=== PATIENT | male | born 1945 | race Caucasian/White ===

== ENCOUNTER 2018-09-27 10:12 | Emergency (ER) | payer MEDICARE, OTHER ==
[2018-09-27] MEDS ORDERED: BACIGUENT PACKET TP ONE (10:33)
[2018-09-27] MEDS ORDERED: Sodium Chloride 0.9% 1000 ML 1,000 ML ONE (10:39)
[2018-09-27] MEDS ORDERED: BACIGUENT PACKET ONE (10:40)
--- NOTE | 2018-09-27 10:40 | ERPHSYRPT ---
- History of Present Illness Time Seen by Provider: 09/27/18 10:25 Source: patient Exam Limitations: no limitations Patient Subjective Stated Complaint: pt arrived per ambulance from drs office for dizzines after getting up from a chair.he fell to the ground on knees, ems had pt walk from cot to bed, and pt denies any dizziness now. Triage Nursing Assessment: pt alert, resp easy, skin w/d/p. chest clear, slight swelling to lower legs. pt has abrasion to left knee from fall. pt denies any other injury Physician History: 73-year-old white male with a history of syncopal episodes in the past. Patient arrives with complaint that he was at his doctor's office apparently stepped off the scale went to walk into a room felt weak dizzy and felt to his hands and knees. He did not have any problems speaking he states he did not have any loss of consciousness he has no chest pain no shortness of breath. He is not having any focal weaknesses and is moving all of his extremities. He does state that he had a syncopal episode in the distant past where he actually needed to be resuscitated past medical history includes COPD, syncope, high blood pressure, diabetes type 2, coronary artery disease, hypertension, gallbladder disease, prostate problems, depression Past surgical history includes left knee surgery, dental extraction, cataracts Social history patient is a former smoker he denies alcohol or illicit drug use. Timing/Duration: today Severity: moderate Modifying Factors: Improves With: nothing Associated Symptoms: weakness, other (generalized weakness with near syncopal episode), No nausea, No vomiting, No abdominal pain, No shortness of breath, No heartburn, No diaphoresis, No cough, No chills, No chest pain, No fever, No headaches, No loss of appetite, No malaise, No rash, No syncope, No seizure Allergies/Adverse Reactions: codeine Allergy (Verified 09/27/18 10:21) Sulfa (Sulfonamide Antibiotics) Allergy (Verified 09/27/18 10:21) Home Medications: Amlodipine Besylate 5 mg PO DAILY 09/08/15 [History] Aspirin [Aspir-Low] 81 mg PO DAILY 09/08/15 [History] Losartan Potassium 100 mg PO DAILY 09/08/15 [History] Metformin HCl 500 mg [Glucophage 500 MG] 500 mg PO HS 09/08/15 [History] Metoprolol Succinate 50 mg PO HS 09/08/15 [History] Multivitamin [Multi-Vitamin Daily] 1 each PO DAILY 09/08/15 [History] Nabumetone [Relafen] 500 mg PO BID 09/08/15 [History] Pyridoxine HCl [Vitamin B-6] 100 mg PO DAILY 09/08/15 [History] Ranitidine HCl 150 mg PO HS 09/08/15 [History] Senna 8.6 mg [Senokot 8.6 mg] 8.6 mg PO DAILY PRN PRN 09/08/15 [History] Tamsulosin HCl 0.4 mg [Flomax 0.4 MG] 0.4 mg PO HS 09/08/15 [History] Vitamin E 400 Units [Vitamin E 400 UNIT SOFTGEL] 400 unit PO DAILY [History] Omeprazole 40 mg PO DAILY 10/21/15 [History] Budesonide 0.5 mg/2 ml [Pulmicort 0.5 mg/2 ml Respules] 0.5 ml IH 04/15 [History] Rivaroxaban [Xarelto] 15 mg PO DAILY 04/15/16 [History] Hx Tetanus, Diphtheria Vaccination/Date Given: Yes (unknown) Hx Influenza Vaccination/Date Given: Yes Hx Pneumococcal Vaccination/Date Given: Yes Immunizations Up to Date: Yes - Review of Systems Constitutional: No Fever, No Chills Eyes: No Symptoms Ears, Nose, & Throat: No Symptoms Respiratory: No Cough, No Dyspnea Cardiac: Other (generalized weakness with near syncopal episode and fall at physician's office), No Chest Pain, No Edema, No Syncope Abdominal/Gastrointestinal: No Abdominal Pain, No Nausea, No Vomiting, No Diarrhea Genitourinary Symptoms: No Dysuria Musculoskeletal: Other (Slight pain left anterior knee), No Back Pain, No Neck Pain Skin: Other (abrasion left anterior k) Neurological: Dizziness, Other (generalized weakness with near syncopal episode) , No Focal Weakness, No Gait Changes, No Headache, No Irritability, No Lethargy , No Paralysis, No Parasthesia, No Seizure, No Sensory Changes, No Speech Changes, No Tics, No Tremors, No Vertigo Psychological: No Symptoms Endocrine: No Symptoms All Other Systems: Reviewed and Negative - Past Medical History Pertinent Past Medical History: Yes Neurological History: No Pertinent History ENT History: No Pertinent History Cardiac History: Coronary Artery Disease, Hypertension, Other Respiratory History: COPD Endocrine Medical History: Diabetes Type II Musculoskeletal History: No Pertinent History GI Medical History: Gallbladder Disease History: No Pertinent History Psycho-Social History: Depression Male Reproductive Disorders: Prostate Problems - Past Surgical History Past Surgical History: Yes Neuro Surgical History: No Pertinent History Cardiac: No Pertinent History Respiratory: No Pertinent History Gastrointestinal: Cholecystectomy Musculoskeletal: Orthopedic Surgery Male Surgical History: Other Other Surgical History: dental surgical extractions,left knee feb after fall on ice,tear of tendons repaired. - Social History Smoking Status: Former smoker Exposure to second hand smoke: Yes Alcohol Use: None Drug Use: none Patient Lives Alone: No Significant Family History: diabetes, hypertension - Nursing Vital Signs Nursing Vital Signs: Initial Vital Signs Temperature 97.0 F 09/27/18 10:14 Pulse Rate 77 09/27/18 10:14 Respiratory Rate 18 09/27/18 10:14 Blood Pressure 158/92 09/27/18 10:14 O2 Sat by Pulse Oximetry 96 09/27/18 10:14 Pain Scale Pain Intensity 0 - Physical Exam General Appearance: no apparent distress, alert Eye Exam: PERRL/EOMI, eyes nml inspection Ears, Nose, Throat Exam: normal ENT inspection, TMs normal, pharynx normal, moist mucous membranes Neck Exam: normal inspection, non-tender, supple, full range of motion Respiratory Exam: normal breath sounds, lungs clear, No respiratory distress Cardiovascular Exam: regular rate/rhythm, normal heart sounds, normal peripheral pulses, capillary refill <2 sec Gastrointestinal/Abdomen Exam: soft, normal bowel sounds, No tenderness, No mass Back Exam: normal inspection, normal range of motion, No CVA tenderness, No vertebral tenderness Extremity Exam: normal range of motion, pelvis stable, other (slight edema left anterior knee,abrasion left anterior knee), No amputations, No cevallos, No contusions, No calf tenderness, No deformities, No lacerations, No penetrations , No parasthesia, No paralysis, No fortino's sign, No inflammation, No joint swelling, No limited range of motion Neurologic Exam: alert, oriented x 3, cooperative, applique cutter II-XII nml as tested, normal mood/affect, nml cerebellar function, nml station & gait, sensation nml, other (patient alert, oriented 3, cranial nerves II through XII intact, speech normal, no facial droop, normal finger to nose, no pronator drift, patient transition specialist equal and symmetrical 5/5, full range of motion all extremities, sensation intact to all extremities GCS equals 15), No motor deficits, No sensory deficit, No disoriented, No confusion, No agitation, No uncooperative, No intoxicated appearance, No depressed mood/affect, No motor weakness, No facial droop, No slurred speech, No aphasia, No dysarthria, No abnormal gait, No abnormal cerebellar tests, No abnormal applique cutter II-XII, No EOM palsy Skin Exam: other (abrasion left anterior knee) Lymphatic Exam: adenopathy SpO2 Interpretation: normal (96%) SpO2: 96 - Course Nursing assessment & vital signs reviewed: Yes EKG Interpreted by Me: RATE (65 bpm), Sinus Rhythm, NORMAL AXIS, Other (EKG: Sinus rhythm with PVC, 73 bpm, normal axis, complete right bundle block., No acute ST or T wave changes noted. Compared to October 21, 2015) Ordered Tests: Active Orders 24 hr Category Date Time Status Operator Assistant I Cementing STAT Care 09/27/18 10:33 Active EKG-ER Only STAT Care 09/27/18 10:32 Active IV Insertion STAT Care 09/27/18 10:32 Active Orthostatic Vital Signs STAT Care 09/27/18 10:33 Active Pulse Oximetry (ED) STAT Care 09/27/18 10:32 Active Wound Care STAT Care 09/27/18 10:33 Active CBC W DIFF Stat Lab 09/27/18 11:00 Completed CMP Stat Lab 09/27/18 11:00 Completed D-DIMER QUANTITATION Stat Lab 09/27/18 11:00 Completed TROPONIN Q3H Lab 09/27/18 11:00 Completed TROPONIN Q3H Lab 09/27/18 13:50 Completed TROPONIN Q3H Lab 09/27/18 16:45 Ordered TROPONIN Q3H Lab 09/27/18 19:45 Ordered TROPONIN Q3H Lab 09/27/18 22:45 Ordered Medication Summary Generic Name Dose Route Start Last Admin Trade Name Freq PRN Reason Stop Dose Admin Sodium Chloride 1,000 mls @ 100 mls/hr 09/27/18 10:45 09/27/18 10:42 Sodium Chloride 0.9% 1000 Ml IV 10/27/18 10:44 100 mls/hr .Q10H DAHLIA Administration Discontinued Medications Generic Name Dose Route Start Last Admin Trade Name Amalia PRN Reason Stop Dose Admin Bacitracin Zinc 0.9 gm 09/27/18 10:33 09/27/18 10:42 Baciguent Packet TP 09/27/18 10:34 1 gm STAT ONE Administration Bacitracin Zinc Confirm 09/27/18 10:40 Baciguent Packet Administered 09/27/18 10:41 Dose 1 gm .ROUTE [place] ONE Lab/Rad Data: Laboratory Result Diagrams 09/27/18 11:00 09/27/18 11:00 Laboratory Results 09/27/18 09/27/18 09/27/18 Range/Units 13:50 11:00 11:00 WBC (4.0-10.5) K/mm3 RBC (4.1-5.6) M/mm3 Hgb (12.5-18.0) gm/dl Hct (42-50) % MCV (78-100) fl MCH (26-32) pg MCHC (32-36) g/dl RDW (11.5-14.0) % Plt Count (150-450) K/mm3 MPV (6-9.5) fl Gran % (36.0-66.0) % Eos # (Auto) (0-0.5) Absolute Lymphs (auto) (1.0-4.6) Absolute Monos (auto) (0.0-1.3) Lymphocytes % (24.0-44.0) % Monocytes % (0.0-12.0) % Eosinophils % (0.00-5.0) % Basophils % (0.0-0.4) % Absolute Granulocytes (1.4-6.9) Basophils # (0-0.4) D-Dimer 392 (215-500) ng/mL Sodium (137-145) mmol/L Potassium (3.5-5.1) mmol/L Chloride (98-107) mmol/L Carbon Dioxide (22-30) mmol/L Anion Gap (5-15) MEQ/L BUN (9-20) mg/dL Creatinine (0.66-1.25) mg/dL Estimated GFR ML/MIN Glucose (74-106) mg/dL Calcium (8.4-10.2) mg/dL Total Bilirubin (0.2-1.3) mg/dL AST (17-59) U/L ALT (0-50) U/L Alkaline Phosphatase (38-126) U/L Troponin I < 0.012 < 0.012 (0.000-0.034) ng/mL Serum Total Protein (6.3-8.2) g/dL Albumin (3.5-5.0) g/dL 09/27/18 09/27/18 Range/Units 11:00 11:00 WBC 7.3 (4.0-10.5) K/mm3 RBC 4.39 (4.1-5.6) M/mm3 Hgb 10.8 L (12.5-18.0) gm/dl Hct 36.5 L (42-50) % MCV 83.1 (78-100) fl MCH 24.6 L (26-32) pg MCHC 29.6 L (32-36) g/dl RDW 16.2 H (11.5-14.0) % Plt Count 302 (150-450) K/mm3 MPV 11.6 H (6-9.5) fl Gran % 61.0 (36.0-66.0) % Eos # (Auto) 0.33 (0-0.5) Absolute Lymphs (auto) 1.64 (1.0-4.6) Absolute Monos (auto) 0.86 (0.0-1.3) Lymphocytes % 22.3 L (24.0-44.0) % Monocytes % 11.7 (0.0-12.0) % Eosinophils % 4.5 (0.00-5.0) % Basophils % 0.5 (0.0-0.4) % Absolute Granulocytes 4.47 (1.4-6.9) Basophils # 0.04 (0-0.4) D-Dimer (215-500) ng/mL Sodium 143 (137-145) mmol/L Potassium 3.9 (3.5-5.1) mmol/L Chloride 105 (98-107) mmol/L Carbon Dioxide 26 (22-30) mmol/L Anion Gap 15.3 H (5-15) MEQ/L BUN 12 (9-20) mg/dL Creatinine 1.16 (0.66-1.25) mg/dL Estimated GFR > 60.0 ML/MIN Glucose 179 H (74-106) mg/dL Calcium 9.3 (8.4-10.2) mg/dL Total Bilirubin 0.90 (0.2-1.3) mg/dL AST 27 (17-59) U/L ALT 23 (0-50) U/L Alkaline Phosphatase 96 (38-126) U/L Troponin I (0.000-0.034) ng/mL Serum Total Protein 7.3 (6.3-8.2) g/dL Albumin 4.3 (3.5-5.0) g/dL - Progress Progress: improved Progress Note: 09/27/18 12:39 73-year-old white male arrives with complaint of a near syncopal episode at his physician's office today. Patient apparently had stepped off the scale of walked into the other room and then felt "numb all over". States he fell to his knees did not pass out did not hit his head no chest pain no shortness of breath. Patient to with the abrasion to the left anterior knee. Patient in no acute distress vitals are stable. CBC CMP troponin and d-dimer are all normal EKG remarkable for sinus rhythm with PVC right bundle branch block no acute ST or T wave changes are noted Orthostatic vital signs are stable. I've discussed the patient's case with Dr. Hammonds. He would like to repeat troponins 3 hours after last draw.. Consider discharge if within normal limits however patient is to follow-up with Dr. Hammonds tomorrow in the [place] office at 10:30 AM. 09/27/18 15:03 Patient's repeat troponin within normal limits. Patient's vitals have been stable. Patient in no distress. Will discharge. - Departure Time of Disposition: 15:04 Departure Disposition: Home Clinical Impression: near syncopal episode, Abrasion, left knee, initial encounter Condition: Fair Critical Care Time: No Referrals: GONSALO HAMMONDS MD [Primary Care Provider] - Additional Instructions: Return home rest. No driving, no heights no hazardous activity. Take showers instead of baths. Do not engage in any activity that might harming yourself or others. Follow-up with Dr. Hammonds tomorrow morning at 10:30 AM.([place] office) Return for acute distress severe symptoms or for any problems.
[2018-09-27] MEDS ORDERED: Sodium Chloride 0.9% 1000 ML 1,000 ML IV SCH (10:45)
[2018-09-27 11:08] LABS: BASOPHIL % 0.5 % (0.0-0.4); Basophil (Absolute #) 0.04 (0-0.4); Eosinophil % 4.5 % (0.00-5.0); Eosinophil (Absolute #) 0.33 (0-0.5); Granulocyte Absolute (ANC) 4.47 (1.4-6.9); Hematocrit 36.5 % (42-50); Hemoglobin 10.8 gm/dl (12.5-18.0); Lymphocyte (Absolute #) 1.64 (1.0-4.6); Lymphocytes % 22.3 % (24.0-44.0); Mean Cell Volume 83.1 fl (78-100); Mean Corpuscular Hemoglobin 24.6 pg (26-32); Mean Corpuscular Hgb Concent. 29.6 g/dl (32-36); Mean Platelet Volume 11.6 fl (6-9.5); Monocyte (Absolute #) 0.86 (0.0-1.3); Monocytes % 11.7 % (0.0-12.0); Platelet Count 302 K/mm3 (150-450); Red Blood Count 4.39 M/mm3 (4.1-5.6); Red Cell Distribution Width 16.2 % (11.5-14.0); White Blood Count 7.3 K/mm3 (4.0-10.5)
[2018-09-27 11:24] LABS: ALBUMIN 4.3 g/dL (3.5-5.0); ALKALINE PHOSPHATASE 96 U/L (38-126); ANION GAP 15.3 MEQ/L (5-15); BLOOD UREA NITROGEN 12 mg/dL (9-20); CHLORIDE 105 mmol/L (98-107); Calcium 9.3 mg/dL (8.4-10.2); Carbon Dioxide 26 mmol/L (22-30); Creatinine 1 1.16 mg/dL (0.66-1.25); Glucose 179 mg/dL (74-106); Potassium 3.9 mmol/L (3.5-5.1); SGOT/AST 27 U/L (17-59); SGPT/ALT 23 U/L (0-50); SODIUM 143 mmol/L (137-145); Total Protein 7.3 g/dL (6.3-8.2)
[2018-09-27 15:19] VITALS: BP 132/67; PULSE 67; O2SAT 98
== END 2018-09-27 15:30 | disposition home or self-care (01) ==
LOC: ED 10:12
DX: R55 Syncope and collapse (principal); S80.212A Abrasion, left knee, initial encounter; W01.0XXA Fall on same level from slipping, tripping and stumbling without subsequent striking against object, initial encounter; M79.89 Other specified soft tissue disorders; J44.9 Chronic obstructive pulmonary disease, unspecified; I10 Essential (primary) hypertension; I25.10 Atherosclerotic heart disease of native coronary artery without angina pectoris; E11.9 Type 2 diabetes mellitus without complications; F32.9 Major depressive disorder, single episode, unspecified; Z79.01 Long term (current) use of anticoagulants; Z79.899 Other long term (current) drug therapy
CPT/HCPCS: 36415; 80053; 84484; 85025; 85379; 93005; 93041; 96360; 96361; 99284; A9270-GY

== ENCOUNTER 2020-02-05 10:06 | Emergency (ER) | payer MEDICARE, OTHER ==
[2020-02-05] MEDS ORDERED: XYLOCAINE 1% HCL 20 ML MDV IJ ONE (10:29)
[2020-02-05] MEDS ORDERED: Adacel Vial IM ONE ×2 (10:29→10:45)
[2020-02-05] MEDS ORDERED: XYLOCAINE 1% HCL 20 ML MDV ONE (10:32)
--- NOTE | 2020-02-05 10:53 | ERPHSYRPT ---
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 pt states he is on blood thinners. Triage Nursing Assessment: pt with laceration to L 2nd digit. bleeding controlled. pt on blood thinners. pt A&Ox4. Physician History: Is a 74-year-old male who was trying to on block a obstruction from in a icemaker with a software technician knife when it slipped and cut his right index finger. He is on Eliquis. The laceration is at the distal phalanx radial aspect 2 cm in length. No other injury this occurred just prior to arrival by private vehicle. Timing/Duration: today Quality: painful Severity: moderate Location: hands (Next finger) Associated Symptoms: denies symptoms Allergies/Adverse Reactions: codeine Allergy (Verified 02/05/20 10:34) Sulfa (Sulfonamide Antibiotics) Allergy (Verified 02/05/20 10:34) Home Medications: Amlodipine Besylate 5 mg PO DAILY 09/08/15 [History] Aspirin [Aspir-Low] 81 mg PO DAILY 09/08/15 [History] Losartan Potassium 100 mg PO DAILY 09/08/15 [History] Metformin HCl 500 mg [Glucophage 500 MG] 500 mg PO HS 09/08/15 [History] Metoprolol Succinate 50 mg PO HS 09/08/15 [History] Multivitamin [Multi-Vitamin Daily] 1 each PO DAILY 09/08/15 [History] Nabumetone [Relafen] 500 mg PO BID 09/08/15 [History] Pyridoxine HCl [Vitamin B-6] 100 mg PO DAILY 09/08/15 [History] Ranitidine HCl 150 mg PO HS 09/08/15 [History] Senna 8.6 mg [Senokot 8.6 mg] 8.6 mg PO DAILY PRN PRN 09/08/15 [History] Tamsulosin HCl 0.4 mg [Flomax 0.4 MG] 0.4 mg PO HS 09/08/15 [History] Vitamin E 400 Units [Vitamin E 400 UNIT SOFTGEL] 400 unit PO DAILY [History] Omeprazole 40 mg PO DAILY 10/21/15 [History] Budesonide 0.5 mg/2 ml [Pulmicort 0.5 mg/2 ml Respules] 0.5 ml IH UD 04/15 [History] Rivaroxaban [Xarelto] 15 mg PO DAILY 04/15/16 [History] Hx Tetanus, Diphtheria Vaccination/Date Given: No Hx Influenza Vaccination/Date Given: Yes Hx Pneumococcal Vaccination/Date Given: Yes Immunizations Up to Date: Yes Travel Risk - International Travel Have you traveled outside of the country in past 3 weeks: No (N) If Yes, where;: N - Coronavirus Screening Close contact with a COVID-19 positive Pt in past 14-21 Days: No - Review of Systems Constitutional: No Fever, No Chills Eyes: No Symptoms Ears, Nose, & Throat: No Symptoms Respiratory: No Cough, No Dyspnea Cardiac: No Chest Pain, No Edema, No Syncope Abdominal/Gastrointestinal: No Abdominal Pain, No Nausea, No Vomiting, No Diarrhea Genitourinary Symptoms: No Dysuria Musculoskeletal: No Back Pain, No Neck Pain Skin: No Rash Neurological: No Dizziness, No Focal Weakness, No Sensory Changes Psychological: No Symptoms Endocrine: No Symptoms All Other Systems: Reviewed and Negative - Past Medical History Pertinent Past Medical History: Yes Neurological History: No Pertinent History ENT History: No Pertinent History Cardiac History: Coronary Artery Disease, Hypertension, Other Respiratory History: COPD Endocrine Medical History: Diabetes Type II Musculoskeletal History: No Pertinent History GI Medical History: Gallbladder Disease History: No Pertinent History Psycho-Social History: Depression Male Reproductive Disorders: Prostate Problems - Past Surgical History Past Surgical History: Yes Neuro Surgical History: No Pertinent History Cardiac: No Pertinent History Respiratory: No Pertinent History Gastrointestinal: Cholecystectomy Musculoskeletal: Orthopedic Surgery Male Surgical History: Other Other Surgical History: dental surgical extractions,left knee feb after fall on ice,tear of tendons repaired. - Social History Smoking Status: Former smoker Exposure to second hand smoke: No Alcohol Use: None Drug Use: none Patient Lives Alone: No Significant Family History: diabetes, hypertension - Nursing Vital Signs Nursing Vital Signs: Initial Vital Signs Temperature 97.4 F 02/05/20 10:26 Pulse Rate 68 02/05/20 10:26 Respiratory Rate 16 02/05/20 10:26 Blood Pressure 150/81 02/05/20 10:26 O2 Sat by Pulse Oximetry 98 02/05/20 10:26 Pain Scale Pain Intensity 2 - Physical Exam General Appearance: no apparent distress, alert Eye Exam: PERRL/EOMI, eyes nml inspection Ears, Nose, Throat Exam: normal ENT inspection, pharynx normal, moist mucous membranes Neck Exam: normal inspection, non-tender, supple, full range of motion Extremity Exam: lacerations, limited range of motion, other (Extremity examination shows normal inspection normal range of motion normal neurovascular tendon function the only abnormality is a 2 cm laceration distal phalanx left index finger radial aspect.) SpO2: 98 Ordered Tests: Medication Summary Discontinued Medications Generic Name Dose Route Start Last Admin Trade Name Freq PRN Reason Stop Dose Admin Diphtheria/Tetanus/Acell Pertussis 0.5 ml 02/05/20 10:29 Adacel Vial IM 02/05/20 10:30 .ONCE ONE Diphtheria/Tetanus/Acell Pertussis Confirm 02/05/20 10:45 Adacel Vial Administered 02/05/20 10:46 Dose 0.5 ml IM .ST[facility]-MED ONE Lidocaine HCl 5 ml 02/05/20 10:29 Xylocaine 1% Hcl 20 Ml Mdv IJ 02/05/20 10:30 STAT ONE Lidocaine HCl Confirm 02/05/20 10:32 Xylocaine 1% Hcl 20 Ml Mdv Administered 02/05/20 10:33 Dose 5 ml .ROUTE .STK-MED ONE - Progress Progress: improved - Departure Departure Disposition: Home Clinical Impression: Laceration Condition: Stable Critical Care Time: No Referrals: GONSALO HAMMONDS MD [Primary Care Provider] - Instructions: Laceration Repair With Stitches (DC)
[2020-02-05 11:00] VITALS: BP 218/74; PULSE 60; O2SAT 97
== END 2020-02-05 11:25 | disposition home or self-care (01) ==
LOC: ED 10:06
DX: S61.211A Laceration without foreign body of left index finger without damage to nail, initial encounter (principal); W26.0XXA Contact with knife, initial encounter; Y93.89 Activity, other specified; Y92.89 Other specified places as the place of occurrence of the external cause; Z79.01 Long term (current) use of anticoagulants; Z79.82 Long term (current) use of aspirin; Z79.899 Other long term (current) drug therapy; I10 Essential (primary) hypertension; I25.10 Atherosclerotic heart disease of native coronary artery without angina pectoris; J44.9 Chronic obstructive pulmonary disease, unspecified; E11.9 Type 2 diabetes mellitus without complications
CPT/HCPCS: 12001; 90471; 90715; 96372; 99284

== ENCOUNTER 2020-04-14 11:02 | Emergency (ER) | payer MEDICARE, OTHER ==
--- NOTE | 2020-04-14 11:22 | ERPHSYRPT ---
- History of Present Illness Time Seen by Provider: 04/14/20 11:21 Historian: patient Exam Limitations: no limitations Physician History: The patient is a 74-year-old male with a past medical history significant for CAD, atrial fibrillation who currently takes apixaban for anticoagulation presents with a chief complaint of a headache and persistent nausea in addition to a left shoulder injury that started last Wednesday after he had a syncopal episode. The patient reportedly was working outside and moving a swing set when he suddenly felt dizzy and felt as if he was going to pass out before losing consciousness and impacting the ground. Patient states that he lost control of his bowels during the syncopal episode but as soon as he hit the ground he immediately awoke and got up and continue to work. He denies chest pain, shortness of breath but reportedly over the ongoing week he is continued to feel nauseous in addition to having a dull headache that is diffuse nonradiating and constant. He endorsed obtaining some bruising and a superficial abrasion to the left ear and a abrasion to the left shoulder as a result of falling. He denies vomiting, fever, chills, chest pain, palpitations, shortness of breath, neck pain and has been able to walk without difficulty since that time. The reason he comes to the emergency department today was due to his daughter concerned of his ongoing headache and nausea with a recently reported head injury in the context of taking apixaban and was concerned that he might have some "bleeding" in his brain. Has not taken anything for his symptoms prior to arrival. He was offered Tylenol for his headache in addition to antiemetics but declined. Allergies/Adverse Reactions: Sulfa (Sulfonamide Antibiotics) Allergy (Severe, Verified 04/14/20 11:30) hallucinations codeine Allergy (Intermediate, Verified 04/14/20 11:30) Nausea and Vomiting Home Medications: Aspirin [Aspir-Low] 81 mg PO DAILY 09/08/15 [History] Losartan Potassium 100 mg PO DAILY 09/08/15 [History] Metformin HCl 500 mg [Glucophage 500 MG] 500 mg PO HS 09/08/15 [History] Metoprolol Succinate 50 mg PO HS 09/08/15 [History] Multivitamin [Multi-Vitamin Daily] 1 each PO DAILY 09/08/15 [History] Nabumetone [Relafen] 500 mg PO BID 09/08/15 [History] Pyridoxine HCl [Vitamin B-6] 100 mg PO DAILY 09/08/15 [History] Senna 8.6 mg [Senokot 8.6 mg] 8.6 mg PO DAILY PRN PRN 09/08/15 [History] Tamsulosin HCl 0.4 mg [Flomax 0.4 MG] 0.4 mg PO HS 09/08/15 [History] Vitamin E 400 Units [Vitamin E 400 UNIT SOFTGEL] 400 unit PO DAILY 09/08/15 [History] Omeprazole 40 mg PO DAILY 10/21/15 [History] Budesonide 0.5 mg/2 ml [Pulmicort 0.5 mg/2 ml Respules] 0.5 ml IH UD 04/15/16 [History] Apixaban [Eliquis] 5 mg PO BID 02/16/20 [History] Famotidine 20 mg [Pepcid 20 MG] 20 mg PO DAILY 02/23/20 [History] Hx Tetanus, Diphtheria Vaccination/Date Given: No Hx Influenza Vaccination/Date Given: Yes Hx Pneumococcal Vaccination/Date Given: Yes - Review of Systems Constitutional: No Symptoms Eyes: No Symptoms Ears, Nose, & Throat: Other (Abrasion and contusion to left ear) Respiratory: No Symptoms Cardiac: Syncope Abdominal/Gastrointestinal: Nausea, No Abdominal Pain, No Vomiting, No Diarrhea, No Constipation Genitourinary Symptoms: No Symptoms Musculoskeletal: Fall, Other (Left shoulder pain) Neurological: Headache, No Focal Weakness, No Gait Changes, No Seizure, No Sensory Changes, No Speech Changes, No Vertigo Psychological: No Symptoms Endocrine: No Symptoms Hematologic/Lymphatic: Anemia All Other Systems: Reviewed and Negative - Past Medical History Pertinent Past Medical History: Yes Neurological History: No Pertinent History ENT History: No Pertinent History Cardiac History: Arrhythmia, Coronary Artery Disease, Hypertension, Other Respiratory History: COPD Endocrine Medical History: Diabetes Type II Musculoskeletal History: No Pertinent History GI Medical History: Gallbladder Disease History: No Pertinent History Psycho-Social History: Depression Male Reproductive Disorders: Prostate Problems Other Medical History: a fib, pacer/defib - Past Surgical History Past Surgical History: Yes Neuro Surgical History: No Pertinent History Cardiac: No Pertinent History Respiratory: No Pertinent History Gastrointestinal: Cholecystectomy Genitourinary: No Pertinent History Musculoskeletal: Orthopedic Surgery Male Surgical History: Other Other Surgical History: dental surgical extractions,left knee feb after fall on ice,tear of tendons repaired. - Social History Smoking Status: Former smoker How long have you smoked: 42 years Exposure to second hand smoke: No Alcohol Use: None Drug Use: none Patient Lives Alone: No Significant Family History: diabetes, hypertension - Nursing Vital Signs Nursing Vital Signs: Initial Vital Signs Temperature 98.1 F 04/14/20 11:19 Pulse Rate 69 04/14/20 11:19 Respiratory Rate 18 04/14/20 11:19 O2 Sat by Pulse Oximetry 98 04/14/20 11:19 Pain Scale Pain Intensity 0 - Physical Exam General Appearance: no apparent distress, alert, obese Eye Exam: PERRL/EOMI, eyes nml inspection, No scleral icterus, No pale conjunctivae, No photophobia, No EOM palsy/anisocoria Ears, Nose, Throat Exam: normal ENT inspection, TMs normal, pharynx normal, moist mucous membranes, pharyngeal erythema, other (Superficial abrasion and contusion noted to the left external ear that appeared to be healing with no evidence of cauliflower ear) Neck Exam: normal inspection, non-tender, supple, other (No midline cervical spine tenderness, crepitus, or step-off) Respiratory Exam: normal breath sounds, lungs clear, airway intact, No chest tenderness, No respiratory distress, No accessory muscle use Cardiovascular Exam: regular rate/rhythm, normal peripheral pulses, capillary refill <2 sec, other (Pacemaker noted to the anterior left chest wall), No murmur, No friction rub, No gallop Gastrointestinal/Abdomen Exam: soft, No tenderness, No mass, No guarding Rectal Exam: deferred Back Exam: normal inspection, No CVA tenderness, No vertebral tenderness, No point tenderness Extremity Exam: tenderness, other (Contusion and tenderness noted to the left shoulder), No deformities Neurologic Exam: alert, oriented x 3, cooperative, other (GCS 15) Skin Exam: warm, dry, other (Contusion/ecchymosis noted to the left shouled), No petechiae, No jaundice - Course Nursing assessment & vital signs reviewed: Yes EKG Interpreted by Me: RATE, Other (Ventricular-paced complexes, Vent rate 64 bpm, MA interval 209 ms, QRS duration 152 ms, QT/QTc 505/521 ms) - Radiology Exams Shoulder X-ray Interpretation: Interpreted by me, Reviewed by me, Negative - CT Exams Head CT Interpretation: Negative, Tele-radiologist Report, Other (No acute intracranial process) Ordered Tests: Active Orders 24 hr Category Date Time Status EKG-ER Only STAT Care 04/14/20 11:21 Completed IV Insertion STAT Care 04/14/20 11:21 Completed HEAD WITHOUT CONTRAST [CT] Stat Exams 04/14/20 12:28 Completed SHOULDER Stat Exams 04/14/20 12:44 Completed BMP Stat Lab 04/14/20 12:00 Completed CBC W DIFF Stat Lab 04/14/20 12:00 Completed Hepatic Function Panel Stat Lab 04/14/20 12:00 Completed LIPASE Stat Lab 04/14/20 12:00 Completed TROPONIN Q3H Lab 04/14/20 12:00 Completed UA W/RFX UR CULTURE Stat Lab 04/14/20 13:36 Completed Lab/Rad Data: Laboratory Result Diagrams 04/14/20 12:00 04/14/20 12:00 Laboratory Results 04/14/20 04/14/20 04/14/20 Range/Units 13:36 12:00 12:00 WBC (4.0-10.5) K/mm3 RBC (4.1-5.6) M/mm3 Hgb (12.5-18.0) gm/dl Hct (42-50) % MCV (78-100) fl MCH (26-32) pg MCHC (32-36) g/dl RDW (11.5-14.0) % Plt Count (150-450) K/mm3 MPV (7.5-11.0) fl Gran % (36.0-66.0) % Eos # (Auto) (0-0.5) Absolute Lymphs (auto) (1.0-4.6) Absolute Monos (auto) (0.0-1.3) Lymphocytes % (24.0-44.0) % Monocytes % (0.0-12.0) % Eosinophils % (0.00-5.0) % Basophils % (0.0-0.4) % Absolute Granulocytes (1.4-6.9) Basophils # (0-0.4) Sodium 140 (137-145) mmol/L Potassium 4.0 (3.5-5.1) mmol/L Chloride 104 (98-107) mmol/L Carbon Dioxide 26 (22-30) mmol/L Anion Gap 13.9 (5-15) MEQ/L BUN 15 (9-20) mg/dL Creatinine 1.30 H (0.66-1.25) mg/dL Estimated GFR 57.4 ML/MIN Glucose 185 H (74-106) mg/dL Calcium 9.1 (8.4-10.2) mg/dL Total Bilirubin 1.50 H (0.2-1.3) mg/dL Direct Bilirubin 0.1 (0.0-0.4) mg/dL AST 27 (17-59) U/L ALT 20 (0-50) U/L Alkaline Phosphatase 61 (38-126) U/L Troponin I < 0.012 (0.000-0.034) ng/mL Serum Total Protein 7.0 (6.3-8.2) g/dL Albumin 4.4 (3.5-5.0) g/dL Lipase 144 (23-300) U/L Urine Color SABINA (YELLOW) Urine Appearance SLIGHTLY CLOUDY (CLEAR) Urine pH 6.0 (5-6) Ur Specific [place] 1.013 (1.005-1.025) Urine Protein NEGATIVE (Negative) Urine Ketones NEGATIVE (NEGATIVE) Urine Blood NEGATIVE (0-5) Eric/ul Urine Nitrite NEGATIVE (NEGATIVE) Urine Bilirubin NEGATIVE (NEGATIVE) Urine Urobilinogen NEGATIVE (0-1) mg/dL Ur Leukocyte Esterase NEGATIVE (NEGATIVE) Urine WBC (Auto) NONE (0-5) /HPF Urine RBC (Auto) NONE (0-2) /HPF U Epithel Cells (Auto) NONE (FEW) /HPF Urine Bacteria (Auto) NONE (NEGATIVE) /HPF Urine Mucus (Auto) SLIGHT (NEGATIVE) /HPF Urine Culture Reflexed NO (NO) Urine Glucose >=500 (NEGATIVE) mg/dL 04/14/20 Range/Units 12:00 WBC 7.0 (4.0-10.5) K/mm3 RBC 4.25 (4.1-5.6) M/mm3 Hgb 12.1 L (12.5-18.0) gm/dl Hct 40.1 L (42-50) % MCV 94.4 (78-100) fl MCH 28.5 (26-32) pg MCHC 30.2 L (32-36) g/dl RDW 15.7 H (11.5-14.0) % Plt Count 235 (150-450) K/mm3 MPV 11.9 H (7.5-11.0) fl Gran % 70.6 H (36.0-66.0) % Eos # (Auto) 0.20 (0-0.5) Absolute Lymphs (auto) 1.10 (1.0-4.6) Absolute Monos (auto) 0.73 (0.0-1.3) Lymphocytes % 15.7 L (24.0-44.0) % Monocytes % 10.4 (0.0-12.0) % Eosinophils % 2.9 (0.00-5.0) % Basophils % 0.4 (0.0-0.4) % Absolute Granulocytes 4.93 (1.4-6.9) Basophils # 0.03 (0-0.4) Sodium (137-145) mmol/L Potassium (3.5-5.1) mmol/L Chloride (98-107) mmol/L Carbon Dioxide (22-30) mmol/L Anion Gap (5-15) MEQ/L BUN (9-20) mg/dL Creatinine (0.66-1.25) mg/dL Estimated GFR ML/MIN Glucose (74-106) mg/dL Calcium (8.4-10.2) mg/dL Total Bilirubin (0.2-1.3) mg/dL Direct Bilirubin (0.0-0.4) mg/dL AST (17-59) U/L ALT (0-50) U/L Alkaline Phosphatase (38-126) U/L Troponin I (0.000-0.034) ng/mL Serum Total Protein (6.3-8.2) g/dL Albumin (3.5-5.0) g/dL Lipase (23-300) U/L Urine Color (YELLOW) Urine Appearance (CLEAR) Urine pH (5-6) Ur Specific [place] (1.005-1.025) Urine Protein (Negative) Urine Ketones (NEGATIVE) Urine Blood (0-5) Eric/ul Urine Nitrite (NEGATIVE) Urine Bilirubin (NEGATIVE) Urine Urobilinogen (0-1) mg/dL Ur Leukocyte Esterase (NEGATIVE) Urine WBC (Auto) (0-5) /HPF Urine RBC (Auto) (0-2) /HPF U Epithel Cells (Auto) (FEW) /HPF Urine Bacteria (Auto) (NEGATIVE) /HPF Urine Mucus (Auto) (NEGATIVE) /HPF Urine Culture Reflexed (NO) Urine Glucose (NEGATIVE) mg/dL - Progress Progress: unchanged Progress Note: 04/14/20 13:29 Troponin was reportedly negative according to the lab. 04/14/20 16:10 The patient presents with a chief complaint of a syncopal episode that occurred on Wednesday that sounds vasovagal in etiology given that he reportedly had a prodrome before briefly losing consciousness and impacting his head. Given that he had a head injury in the context of taking Eliquis he was deemed high probability of a potential subdural hematoma and therefore a CT scan of his head was obtained and showed no evidence of acute cranial pathology. Remaining laboratory work-up was relatively benign and his kidney function noted today is his baseline kidney function. Possible the patient may have a mild concussion given his reported head injury after his syncopal episode but appears well with no cranial deficits or neuro deficits at this time and was able to ambulate without difficulty. He was offered Tylenol in addition antiemetics in the emergency department and declined such. His cardiac markers were within normal limits and I currently have a low suspicion for PE at this time given that the patient is taking a DOAC. Mainly, the patient was discharged home with instructions to take Tylenol as needed for any ongoing pain and was offered antiemetics to take as an outpatient but declined. He was instructed to follow- up with his primary care provider for further evaluation and management. He agreed with and verbally understood the discharge plan. Counseled pt/family regarding: lab results, diagnosis, need for follow-up, rad results - Departure Departure Disposition: Home Clinical Impression: Head injury, Shoulder contusion, Syncope, Abrasion of left ear, Contusion of left ear Condition: Stable Critical Care Time: No Referrals: GONSALO HAMMONDS MD [Primary Care Provider] - Additional Instructions: Please take Tylenol as needed for any headaches aches or pains. You can purchase this medication [id number]. Please take this medication as instructed.
[2020-04-14 11:30] VITALS: O2SAT 98
[2020-04-14 12:16] LABS: Absolute Neutrophil Ct (ANC) 4.93 (1.4-6.9); BASOPHIL % 0.4 % (0.0-0.4); Basophil (Absolute #) 0.03 (0-0.4); Eosinophil % 2.9 % (0.00-5.0); Hematocrit 40.1 % (42-50); Hemoglobin 12.1 gm/dl (12.5-18.0); Lymphocytes % 15.7 % (24.0-44.0); Mean Cell Volume 94.4 fl (78-100); Mean Corpuscular Hemoglobin 28.5 pg (26-32); Mean Corpuscular Hgb Concent. 30.2 g/dl (32-36); Mean Platelet Volume 11.9 fl (7.5-11.0); Monocyte (Absolute #) 0.73 (0.0-1.3); Monocytes % 10.4 % (0.0-12.0); Neutrophil % 70.6 % (36.0-66.0); Platelet Count 235 K/mm3 (150-450); Red Blood Count 4.25 M/mm3 (4.1-5.6); Red Cell Distribution Width 15.7 % (11.5-14.0)
[2020-04-14 13:00] LABS: ALBUMIN 4.4 g/dL (3.5-5.0); ANION GAP 13.9 MEQ/L (5-15); BILIRUBIN,TOTAL 1.5 mg/dL (0.2-1.3); Calcium 9.1 mg/dL (8.4-10.2); Creatinine 1 1.3 mg/dL (0.66-1.25); Direct Bilirubin 0.1 mg/dL (0.0-0.4)
[2020-04-14 13:40] LABS: Appearance SLIGHTLY CLOUDY (CLEAR); Bilirubin NEGATIVE (NEGATIVE); Blood NEGATIVE Ery/ul (0-5); Glucose >=500 mg/dL (NEGATIVE); Ketones NEGATIVE (NEGATIVE); Leukocyte Esterase NEGATIVE (NEGATIVE); Mucus SLIGHT /HPF (NEGATIVE); Nitrite NEGATIVE (NEGATIVE); Protein,Urine Dip NEGATIVE (Negative); Specific Gravity 1.013 (1.005-1.025); Urobilinogen NEGATIVE mg/dL (0-1)
[2020-04-14 13:48] VITALS: BP 130/76; PULSE 72
--- NOTE | 2020-04-14 19:31 | XRAY ---
Indication: Headache following fall. Current blood thinner therapy. Multiple contiguous axial images obtained through the head without contrast. Comparison: None Age-appropriate global atrophy and minimal periventricular degenerative micro-ischemia bilaterally. No acute intracranial hemorrhage, abnormal extra-axial fluid collection, or mass effect. Fourth ventricle is midline. Bony calvarium intact. Remaining visualized paranasal sinuses and mastoid air cells are clear. Impression: Nonacute senile brain. Minimal paranasal sinus disease. Comment: Preliminary interpretation was made by [facility]. No critical discrepancy.
--- NOTE | 2020-04-14 19:33 | XRAY ---
Pain following fall. Comparison: None 3 view left shoulder demonstrates mild osteopenia and moderate degenerative arthropathy of the AC and glenohumeral joints. Incompletely visualized left pacemaker and small left hilar calcified nodes. Remaining shoulder unremarkable.
== END 2020-04-14 13:49 | disposition home or self-care (01) ==
LOC: ED 11:02
DX: S09.90XA Unspecified injury of head, initial encounter (principal); S40.012A Contusion of left shoulder, initial encounter; R55 Syncope and collapse; S00.412A Abrasion of left ear, initial encounter; S00.432A Contusion of left ear, initial encounter; Z79.899 Other long term (current) drug therapy; I25.10 Atherosclerotic heart disease of native coronary artery without angina pectoris; I10 Essential (primary) hypertension; J44.9 Chronic obstructive pulmonary disease, unspecified; E11.9 Type 2 diabetes mellitus without complications
CPT/HCPCS: 36000; 36415; 70450; 73030; 80048; 80076; 81001; 83690; 84484; 85025; 93005; 99284

== ENCOUNTER 2020-11-04 17:07 | Emergency (ER) | payer MEDICARE, OTHER ==
[2020-11-04 17:29] LABS: Absolute Neutrophil Ct (ANC) 3.67 (1.4-6.9); Basophil (Absolute #) 0.06 (0-0.4); Eosinophil % 4.1 % (0.00-5.0); Eosinophil (Absolute #) 0.25 (0-0.5); Mean Cell Volume 92.3 fl (78-100); Mean Corpuscular Hemoglobin 28.6 pg (26-32); Mean Platelet Volume 11.4 fl (7.5-11.0); Monocyte (Absolute #) 0.71 (0.0-1.3); Monocytes % 11.7 % (0.0-12.0); Neutrophil % 60.2 % (36.0-66.0); Platelet Count 227 K/mm3 (150-450); Red Blood Count 4.55 M/mm3 (4.1-5.6); Red Cell Distribution Width 14.9 % (11.5-14.0); White Blood Count 6.1 K/mm3 (4.0-10.5)
[2020-11-04 18:18] LABS: ALBUMIN 4.3 g/dL (3.5-5.0); ALKALINE PHOSPHATASE 64 U/L (38-126); ANION GAP 14.7 MEQ/L (5-15); BLOOD UREA NITROGEN 20 mg/dL (9-20); CHLORIDE 103 mmol/L (98-107); Calcium 9.2 mg/dL (8.4-10.2); Carbon Dioxide 28 mmol/L (22-30); Creatinine 1 1.39 mg/dL (0.66-1.25); EST GLOMERULAR FILTRATION RATE 52.9 ML/MIN; ETHYL ALCOHOL < 10 mg/dL (0-10); Glucose 132 mg/dL (74-106); NT PRO BNP 832 pg/mL (0-1800); Potassium 4.3 mmol/L (3.5-5.1); SGOT/AST 38 U/L (17-59); SGPT/ALT 32 U/L (0-50); SODIUM 141 mmol/L (137-145); Total Protein 7.1 g/dL (6.3-8.2)
--- NOTE | 2020-11-04 18:47 | ERPHSYRPT ---
- History of Present Illness Time Seen by Provider: 11/04/20 17:20 Source: patient Exam Limitations: no limitations Patient Subjective Stated Complaint: syncope Triage Nursing Assessment: pt to ED c/o syncopal episode at home while reaching for something in kitchen. family states he did lose consciousness for approx 1 min but never became apnic per EMS. pt is on eliquis. A&Ox3. pt denies pain at this time. reports his acetylene burner adjusted his pacemaker rates approx 2 weeks ago. Physician History: Patient is a 75-year-old male presents to our ED via EMS for evaluation of syncope. Syncope occurred just prior to arrival. Per report patient was at his home. Patient was reaching while in the kitchen and experienced a syncopal event. The event was witnessed per family. Patient was unresponsive for approximately 1 minute. Patient was not apneic. Family states patient postured slightly prior to recovery. Family reports that patient has a history of syncope. He has a pacemaker. Per report patient's acetylene burner recently increased the rate of the pacemaker from 70 to 80 bpm. This change in rate occurred to address patient's syncopal episodes. Patient is on Eliquis. No chest pain. No nausea vomiting or diaphoresis. Patient feels well at this time. He is alert and oriented x3. Patient voices no other complaints at this time. Timing/Duration: today Severity: moderate Modifying Factors: Improves With: nothing Associated Symptoms: denies symptoms Allergies/Adverse Reactions: Sulfa (Sulfonamide Antibiotics) Allergy (Severe, Verified 11/04/20 17:24) hallucinations codeine Allergy (Intermediate, Verified 11/04/20 17:24) Nausea and Vomiting cephalexin [From Keflex] Allergy (Unknown, Verified 11/04/20 17:24) Home Medications: Aspirin [Aspir-Low] 81 mg PO DAILY 09/08/15 [History] Losartan Potassium 50 mg PO DAILY 09/08/15 [History] Metformin HCl 500 mg [Glucophage 500 MG] 500 mg PO HS 09/08/15 [History] Metoprolol Succinate 75 mg PO BID 09/08/15 [History] Multivitamin [Multi-Vitamin Daily] 1 each PO DAILY 09/08/15 [History] Nabumetone [Relafen] 500 mg PO BID 09/08/15 [History] Pyridoxine HCl [Vitamin B-6] 100 mg PO DAILY 09/08/15 [History] Senna 8.6 mg [Senokot 8.6 mg] 8.6 mg PO DAILY PRN PRN 09/08/15 [History] Tamsulosin HCl 0.4 mg [Flomax 0.4 MG] 0.8 mg PO HS 09/08/15 [History] Vitamin E 400 Units [Vitamin E 400 UNIT SOFTGEL] 400 unit PO DAILY 09/08/15 [History] Omeprazole 20 mg PO DAILY 10/21/15 [History] Budesonide 0.5 mg/2 ml [Pulmicort 0.5 mg/2 ml Respules] 0.5 ml IH UD 04/15/16 [History] Apixaban [Eliquis] 5 mg PO BID 02/16/20 [History] Famotidine 20 mg [Pepcid 20 MG] 20 mg PO DAILY 02/23/20 [History] Amiodarone HCl 200 mg PO DAILY 09/24/20 [History] Cyanocobalamin (Vitamin B-12) [Vitamin B12] 1,000 mcg PO DAILY 09/24/20 [History] PARoxetine HCL [Paroxetine HCl] 20 mg PO DAILY 09/24/20 [History] Rosuvastatin Calcium 10 mg PO HS 09/24/20 [History] Ubidecarenone [Co Q-10] 200 mg PO DAILY 09/24/20 [History] Hx Tetanus, Diphtheria Vaccination/Date Given: No Hx Influenza Vaccination/Date Given: Yes Hx Pneumococcal Vaccination/Date Given: Yes Travel Risk - International Travel Have you traveled outside of the country in past 3 weeks: No - Coronavirus Screening Are you exhibiting any of the following symptoms?: No Close contact with a COVID-19 positive Pt in past 14-21 Days: No - Review of Systems Constitutional: No Symptoms, No Fever, No Chills Eyes: No Symptoms Ears, Nose, & Throat: No Symptoms Respiratory: No Symptoms, No Cough, No Dyspnea Cardiac: No Symptoms, No Chest Pain, No Edema, No Syncope Abdominal/Gastrointestinal: No Symptoms, No Abdominal Pain, No Nausea, No Vomiting, No Diarrhea Genitourinary Symptoms: No Symptoms, No Dysuria Musculoskeletal: No Symptoms, No Back Pain, No Neck Pain Skin: No Symptoms, No Rash Neurological: No Symptoms, No Dizziness, No Focal Weakness, No Sensory Changes Psychological: No Symptoms Endocrine: No Symptoms Hematologic/Lymphatic: No Symptoms Immunological/Allergic: No Symptoms All Other Systems: Reviewed and Negative - Past Medical History Pertinent Past Medical History: Yes Neurological History: No Pertinent History ENT History: No Pertinent History Cardiac History: Arrhythmia, Coronary Artery Disease, Hypertension, Other Respiratory History: COPD Endocrine Medical History: Diabetes Type II Musculoskeletal History: No Pertinent History GI Medical History: Gallbladder Disease History: No Pertinent History Psycho-Social History: Depression Male Reproductive Disorders: Prostate Problems Other Medical History: a fib, pacer/defib, anemia, - Past Surgical History Past Surgical History: Yes Neuro Surgical History: No Pertinent History Cardiac: Pacemaker Respiratory: No Pertinent History Gastrointestinal: Cholecystectomy Genitourinary: No Pertinent History Musculoskeletal: Orthopedic Surgery Male Surgical History: Other Other Surgical History: dental surgical extractions,left knee feb after fall on ice,tear of tendons repaired. - Social History Smoking Status: Former smoker How long have you smoked: 42 years Exposure to second hand smoke: No Alcohol Use: None Drug Use: none Patient Lives Alone: No Significant Family History: diabetes, hypertension - Nursing Vital Signs Nursing Vital Signs: Initial Vital Signs Temperature 97.0 F 11/04/20 17:13 Pulse Rate 80 11/04/20 17:13 Respiratory Rate 18 11/04/20 17:13 Blood Pressure 132/75 11/04/20 17:13 O2 Sat by Pulse Oximetry 93 L 11/04/20 17:13 Pain Scale Pain Intensity 0 - Physical Exam General Appearance: no apparent distress, alert Eye Exam: PERRL/EOMI, eyes nml inspection Ears, Nose, Throat Exam: normal ENT inspection, TMs normal, pharynx normal, moist mucous membranes Neck Exam: normal inspection, non-tender, supple, full range of motion Respiratory Exam: normal breath sounds, lungs clear, No respiratory distress Cardiovascular Exam: regular rate/rhythm, normal heart sounds, normal peripheral pulses Gastrointestinal/Abdomen Exam: soft, normal bowel sounds, No tenderness, No mass Back Exam: normal inspection, normal range of motion, No CVA tenderness, No vertebral tenderness Extremity Exam: normal inspection, normal range of motion, pelvis stable Neurologic Exam: alert, oriented x 3, cooperative, normal mood/affect, nml cerebellar function, sensation nml, No motor deficits Skin Exam: normal color, warm, dry, No rash Lymphatic Exam: No adenopathy SpO2 Interpretation: normal SpO2: 96 O2 Delivery: Room Air - Course Nursing assessment & vital signs reviewed: Yes EKG Interpreted by Me: RATE (80), Sinus Rhythm, NORMAL AXIS, NORMAL INTERVALS - Radiology Exams Chest X-ray Interpretation: Interpreted by me (Portable chest is clear. Heart and mediastinal structures intact. Bony thorax intact. Nonacute chest. Pacemaker observed) - CT Exams Head CT Interpretation: Tele-radiologist Report (Nonacute senile brain.) Ordered Tests: Active Orders 24 hr Category Date Time Status Library Associate STAT Care 11/04/20 17:11 Active EKG-ER Only STAT Care 11/04/20 17:10 Active IV Insertion STAT Care 11/04/20 17:10 Active Pulse Oximetry (ED) STAT Care 11/04/20 17:10 Active CHEST 1 VIEW (PORTABLE) Stat Exams 11/04/20 17:11 Taken HEAD WITHOUT CONTRAST [CT] Stat Exams 11/04/20 17:12 Taken CBC W DIFF Stat Lab 11/04/20 17:26 Completed CMP Stat Lab 11/04/20 17:26 Completed ETHYL ALCOHOL Stat Lab 11/04/20 17:26 Completed NT PRO BNP Stat Lab 11/04/20 17:26 Completed TROPONIN Q3H Lab 11/04/20 17:26 Completed TROPONIN Q3H Lab 11/04/20 20:22 Received TROPONIN Q3H Lab 11/04/20 23:15 Ordered TROPONIN Q3H Lab 11/05/20 02:15 Ordered TROPONIN Q3H Lab 11/05/20 05:15 Ordered UA W/RFX UR CULTURE Stat Lab 11/04/20 19:34 Completed Urine Triage Profile Stat Lab 11/04/20 19:34 Completed Lab/Rad Data: Laboratory Result Diagrams 11/04/20 17:26 11/04/20 17:26 Laboratory Results 11/04/20 11/04/20 11/04/20 Range/Units 20:22 19:34 19:34 WBC (4.0-10.5) K/mm3 RBC (4.1-5.6) M/mm3 Hgb (12.5-18.0) gm/dl Hct (42-50) % MCV (78-100) fl MCH (26-32) pg MCHC (32-36) g/dl RDW (11.5-14.0) % Plt Count (150-450) K/mm3 MPV (7.5-11.0) fl Gran % (36.0-66.0) % Eos # (Auto) (0-0.5) Absolute Lymphs (auto) (1.0-4.6) Absolute Monos (auto) (0.0-1.3) Lymphocytes % (24.0-44.0) % Monocytes % (0.0-12.0) % Eosinophils % (0.00-5.0) % Basophils % (0.0-0.4) % Absolute Granulocytes (1.4-6.9) Basophils # (0-0.4) Sodium (137-145) mmol/L Potassium (3.5-5.1) mmol/L Chloride (98-107) mmol/L Carbon Dioxide (22-30) mmol/L Anion Gap (5-15) MEQ/L BUN (9-20) mg/dL Creatinine (0.66-1.25) mg/dL Estimated GFR ML/MIN Glucose (74-106) mg/dL Calcium (8.4-10.2) mg/dL Total Bilirubin (0.2-1.3) mg/dL AST (17-59) U/L ALT (0-50) U/L Alkaline Phosphatase (38-126) U/L Troponin I 0.016 (0.000-0.034) ng/mL NT-Pro-B Natriuret Pep (0-1800) pg/mL Serum Total Protein (6.3-8.2) g/dL Albumin (3.5-5.0) g/dL Urine Color YELLOW (YELLOW) Urine Appearance SLIGHTLY CLOUDY (CLEAR) Urine pH 5.0 (5-6) Ur Specific [place] 1.023 (1.005-1.025) Urine Protein NEGATIVE (Negative) Urine Ketones NEGATIVE (NEGATIVE) Urine Blood NEGATIVE (0-5) Eric/ul Urine Nitrite NEGATIVE (NEGATIVE) Urine Bilirubin NEGATIVE (NEGATIVE) Urine Urobilinogen NEGATIVE (0-1) mg/dL Ur Leukocyte Esterase NEGATIVE (NEGATIVE) Urine WBC (Auto) 0-2 (0-5) /HPF Urine RBC (Auto) 0-2 (0-2) /HPF U Epithel Cells (Auto) NONE (FEW) /HPF Urine Bacteria (Auto) NONE SEEN (NEGATIVE) /HPF Urine Mucus (Auto) SLIGHT (NEGATIVE) /HPF Urine Culture Reflexed NO (NO) Urine Glucose 50 (NEGATIVE) mg/dL Urine Opiates Level NEGATIVE (NEGATIVE) Ur Methadone NEGATIVE (NEGATIVE) Urine Barbiturates NEGATIVE (NEGATIVE) Ur Phencyclidine (PCP) NEGATIVE (NEGATIVE) Urine Amphetamine NEGATIVE (NEGATIVE) U Benzodiazepine Level NEGATIVE (NEGATIVE) Urine Cocaine NEGATIVE (NEGATIVE) Urine Marijuana (THC) NEGATIVE (NEGATIVE) Ethyl Alcohol (0-10) mg/dL 11/04/20 11/04/20 11/04/20 Range/Units 17:26 17:26 17:26 WBC 6.1 (4.0-10.5) K/mm3 RBC 4.55 (4.1-5.6) M/mm3 Hgb 13.0 (12.5-18.0) gm/dl Hct 42.0 (42-50) % MCV 92.3 (78-100) fl MCH 28.6 (26-32) pg MCHC 31.0 L (32-36) g/dl RDW 14.9 H (11.5-14.0) % Plt Count 227 (150-450) K/mm3 MPV 11.4 H (7.5-11.0) fl Gran % 60.2 (36.0-66.0) % Eos # (Auto) 0.25 (0-0.5) Absolute Lymphs (auto) 1.40 (1.0-4.6) Absolute Monos (auto) 0.71 (0.0-1.3) Lymphocytes % 23.0 L (24.0-44.0) % Monocytes % 11.7 (0.0-12.0) % Eosinophils % 4.1 (0.00-5.0) % Basophils % 1.0 (0.0-0.4) % Absolute Granulocytes 3.67 (1.4-6.9) Basophils # 0.06 (0-0.4) Sodium 141 (137-145) mmol/L Potassium 4.3 (3.5-5.1) mmol/L Chloride 103 (98-107) mmol/L Carbon Dioxide 28 (22-30) mmol/L Anion Gap 14.7 (5-15) MEQ/L BUN 20 (9-20) mg/dL Creatinine 1.39 H (0.66-1.25) mg/dL Estimated GFR 52.9 ML/MIN Glucose 132 H (74-106) mg/dL Calcium 9.2 (8.4-10.2) mg/dL Total Bilirubin 1.00 (0.2-1.3) mg/dL AST 38 (17-59) U/L ALT 32 (0-50) U/L Alkaline Phosphatase 64 (38-126) U/L Troponin I < 0.012 (0.000-0.034) ng/mL NT-Pro-B Natriuret Pep 832 (0-1800) pg/mL Serum Total Protein 7.1 (6.3-8.2) g/dL Albumin 4.3 (3.5-5.0) g/dL Urine Color (YELLOW) Urine Appearance (CLEAR) Urine pH (5-6) Ur Specific [place] (1.005-1.025) Urine Protein (Negative) Urine Ketones (NEGATIVE) Urine Blood (0-5) Eric/ul Urine Nitrite (NEGATIVE) Urine Bilirubin (NEGATIVE) Urine Urobilinogen (0-1) mg/dL Ur Leukocyte Esterase (NEGATIVE) Urine WBC (Auto) (0-5) /HPF Urine RBC (Auto) (0-2) /HPF U Epithel Cells (Auto) (FEW) /HPF Urine Bacteria (Auto) (NEGATIVE) /HPF Urine Mucus (Auto) (NEGATIVE) /HPF Urine Culture Reflexed (NO) Urine Glucose (NEGATIVE) mg/dL Urine Opiates Level (NEGATIVE) Ur Methadone (NEGATIVE) Urine Barbiturates (NEGATIVE) Ur Phencyclidine (PCP) (NEGATIVE) Urine Amphetamine (NEGATIVE) U Benzodiazepine Level (NEGATIVE) Urine Cocaine (NEGATIVE) Urine Marijuana (THC) (NEGATIVE) Ethyl Alcohol < 10 (0-10) mg/dL - Progress Progress: improved Progress Note: Patient is 75-year-old male with a history of syncope. Patient presents to our ED with syncope. Preliminary work-up negative. Case discussed with patient's primary care physician Dr. Hammonds who advised transferring patient to [facility]. Per Dr Hammonds, patient will likely require a cardiac ablation for recurrent syncope episodes per patient's acetylene burner. Case discussed with Dr. Cowart ED physician covering [facility] accepts transfer. Plan of care discussed with patient. He agrees to transfer to [facility] for further evaluation and treatment. Patient daughter updated. Of note staff performed orthostatics to assess for orthostatic hypotension and normal orthostatic hypotension was observed. 11/04/20 21:07 11/04/20 21:11 Discussed with : Samir Will see patient in: other Counseled pt/family regarding: lab results, diagnosis, rad results - Departure Departure Disposition: Transfer Clinical Impression: Syncope and collapse Condition: Stable Critical Care Time: No Referrals: GONSALO HAMMONDS MD [Primary Care Provider] -
[2020-11-04 19:46] LABS: Appearance SLIGHTLY CLOUDY (CLEAR); Bilirubin NEGATIVE (NEGATIVE); Blood NEGATIVE Ery/ul (0-5); Glucose 50 mg/dL (NEGATIVE); Ketones NEGATIVE (NEGATIVE); Leukocyte Esterase NEGATIVE (NEGATIVE); Mucus SLIGHT /HPF (NEGATIVE); Nitrite NEGATIVE (NEGATIVE); Protein,Urine Dip NEGATIVE (Negative); RBC 0-2 /HPF (0-2); Specific Gravity 1.023 (1.005-1.025); Urobilinogen NEGATIVE mg/dL (0-1); WBC 0-2 /HPF (0-5)
[2020-11-04 19:48] LABS: Bacteria NONE SEEN /HPF (NEGATIVE)
[2020-11-04 20:03] LABS: Amphetamine,Urine NEGATIVE (NEGATIVE); Barbiturate,Urine NEGATIVE (NEGATIVE); Benzodiazepine,Urine NEGATIVE (NEGATIVE); Cocaine,Urine NEGATIVE (NEGATIVE); Methadone,Urine NEGATIVE (NEGATIVE); Opiate,Urine NEGATIVE (NEGATIVE); PCP,Urine NEGATIVE (NEGATIVE); THC,Urine NEGATIVE (NEGATIVE)
[2020-11-04 22:07] VITALS: BP 135/82
[2020-11-04 22:08] VITALS: PULSE 82; O2SAT 96
--- NOTE | 2020-11-05 08:36 | XRAY ---
Indication: Syncope and chest pain. Comparison: October 21, 2015. Portable chest does not completely include the right costophrenic angle. New minimal left base subsegmental atelectasis/scarring. Remaining lungs clear. Heart is not enlarged for AP portable technique with new left dual-lead pacemaker. Bony thorax intact again with mild osteopenia and degenerative changes. Impression: Nonacute limited chest with chronic features.
--- NOTE | 2020-11-05 08:38 | XRAY ---
Indication: Syncope and chest pain. Blood thinner therapy. Multiple contiguous images obtained through the head without contrast. Comparison: April 14, 2020. Stable age-appropriate global atrophy and minimal periventricular degenerative micro-ischemia. No acute intracranial hemorrhage, abnormal extra-axial fluid collection, or mass effect. Fourth ventricle is midline without hydrocephalus. Bony calvarium intact. Again 1.5 cm right sphenoid sinus polyp/retention cyst. Remaining visualized paranasal sinuses and mastoid air cells are clear. Impression: Continued nonacute senile brain with incidental right sphenoid sinus polyp/retention cyst.
== END 2020-11-04 22:18 | disposition short-term general hospital (02) ==
LOC: ED 17:07
DX: R55 Syncope and collapse (principal); Z79.899 Other long term (current) drug therapy; E11.9 Type 2 diabetes mellitus without complications; I25.10 Atherosclerotic heart disease of native coronary artery without angina pectoris; I10 Essential (primary) hypertension; J44.9 Chronic obstructive pulmonary disease, unspecified
CPT/HCPCS: 36000; 36415; 70450; 71045; 80053; 80307; 81001; 83880; 84484; 85025; 93005; 93041; 94760; 99285; G0480

== ENCOUNTER 2022-05-11 19:31 | Inpatient (IN) | payer MEDICARE, OTHER ==
--- NOTE | 2022-05-11 19:42 | ERPHSYRPT ---
- History of Present Illness Time Seen by Provider: 05/11/22 19:42 Historian: patient Exam Limitations: no limitations Physician History: This is a 76-year-old obese white male patient of Dr. Hammonds and presents to the emergency department from home with left-sided abdominal pain which radiates into his left flank that began this afternoon. He did have a small bowel movement today but it was not much of 1 per his report. He has had mild nausea but no vomiting or diarrhea. Patient has a history of arrhythmias, hypertension, peripheral neuropathy, COPD, pulmonary embolism, diabetes type 2, pacemaker defibrillator placement and prostate issues. Patient denies chest pain and he denies shortness of breath. Timing/Duration: today Activities at Onset: none Quality: dullness, pressure Abdominal Pain Onset Location: LUQ, LLQ Pain Radiation: flank (Left) Severity of Pain-Max: mild (To moderate) Severity of Pain-Current: mild (To moderate) Associated Symptoms: nausea, No chest pain, No diarrhea, No fever/chills, No shortness of breath, No vomiting Previous symptoms: no prior history Allergies/Adverse Reactions: Sulfa (Sulfonamide Antibiotics) Allergy (Severe, Verified 05/11/22 19:49) hallucinations codeine Allergy (Intermediate, Verified 05/11/22 19:49) Nausea and Vomiting cephalexin [From Keflex] Allergy (Unknown, Verified 05/11/22 19:49) Home Medications: Losartan Potassium 50 mg PO DAILY 09/08/15 [History] Metformin HCl 500 mg [Glucophage 500 MG] 500 mg PO HS 09/08/15 [History] Metoprolol Succinate 75 mg PO BID 09/08/15 [History] Multivitamin [Multi-Vitamin Daily] 1 each PO DAILY 09/08/15 [History] Nabumetone [Relafen] 500 mg PO BID 09/08/15 [History] Pyridoxine HCl (Vitamin B6) [Vitamin B-6] 100 mg PO DAILY 09/08/15 [History] Senna 8.6 mg [Senokot 8.6 mg] 8.6 mg PO DAILY PRN PRN 09/08/15 [History] Tamsulosin HCl 0.4 mg [Flomax 0.4 MG] 0.8 mg PO HS 09/08/15 [History] Vitamin E 400 Units [Vitamin E 400 UNIT SOFTGEL] 400 unit PO DAILY 09/08/15 [History] Omeprazole 20 mg PO DAILY 10/21/15 [History] Apixaban [Eliquis] 5 mg PO BID 02/16/20 [History] Famotidine 20 mg [Pepcid 20 MG] 20 mg PO DAILY 02/23/20 [History] Cyanocobalamin (Vitamin B-12) [Vitamin B12] 1,000 mcg PO DAILY 09/24/20 [History] PARoxetine HCL [Paroxetine HCl] 20 mg PO DAILY 09/24/20 [History] Rosuvastatin Calcium 10 mg PO HS 09/24/20 [History] Ubidecarenone [Co Q-10] 200 mg PO DAILY 09/24/20 [History] Albuterol Sulfate [Proair Hfa] 8.5 gm IH Q4-6HPRN PRN 05/11/22 [History] Amlodipine Besylate [Norvasc] 2.5 mg PO DAILY 05/11/22 [History] Larsen-3/Dha/Epa/Fish Oil [Fish Oil 1,000 mg Softgel] 4,000 mg PO BID 05/11/22 [History] Hx Tetanus, Diphtheria Vaccination/Date Given: No Hx Influenza Vaccination/Date Given: Yes Hx Pneumococcal Vaccination/Date Given: Yes Travel Risk - International Travel Have you traveled outside of the country in past 3 weeks: No - Coronavirus Screening Are you exhibiting any of the following symptoms?: No Close contact with a COVID-19 positive Pt in past 14-21 Days: No - Review of Systems Constitutional: No Symptoms Eyes: No Symptoms Ears, Nose, & Throat: No Symptoms Respiratory: No Symptoms Cardiac: No Symptoms Abdominal/Gastrointestinal: Abdominal Pain (Left side), Nausea, No Vomiting, No Diarrhea, No Constipation Genitourinary Symptoms: No Symptoms Musculoskeletal: No Symptoms Skin: No Symptoms Neurological: No Symptoms Psychological: No Symptoms Endocrine: No Symptoms Hematologic/Lymphatic: No Symptoms Immunological/Allergic: No Symptoms All Other Systems: Reviewed and Negative - Past Medical History Pertinent Past Medical History: Yes Neurological History: Peripheral Neuropathy ENT History: No Pertinent History Cardiac History: Arrhythmia, Hypertension Respiratory History: COPD, Pulmonary Embolism, Sleep Apnea Endocrine Medical History: Diabetes Type II Musculoskeletal History: Osteoarthritis GI Medical History: Gallbladder Disease History: No Pertinent History Psycho-Social History: Depression Male Reproductive Disorders: Prostate Problems Other Medical History: SURGERY ON L QUAD AFTER A TEAR, CODED AT [facility] DUE TO A BLOOD CLOT. RECENT BRAIN SCAN BY DR. GARIBAY, WAS PASSING OUT DUE TO SYCOPE. ABLASION OF HEART TO TX AFIB 1 MONTH AGO. PACEMAKER, DEFIBRILLATOR. - Past Surgical History Past Surgical History: Yes Neuro Surgical History: No Pertinent History Cardiac: Pacemaker Respiratory: No Pertinent History Gastrointestinal: Cholecystectomy Genitourinary: No Pertinent History Musculoskeletal: Orthopedic Surgery Male Surgical History: Other Other Surgical History: dental surgical extractions,left knee feb after fall on ice,tear of tendons repaired. - Social History Smoking Status: Former smoker How long have you smoked: 42 years Exposure to second hand smoke: No Alcohol Use: None Drug Use: none Patient Lives Alone: No Significant Family History: diabetes, hypertension - Nursing Vital Signs Nursing Vital Signs: Initial Vital Signs Temperature 97.1 F 05/11/22 19:33 Pulse Rate 60 05/11/22 19:33 Respiratory Rate 20 05/11/22 19:33 Blood Pressure 175/85 05/11/22 19:33 O2 Sat by Pulse Oximetry 97 05/11/22 19:33 Pain Scale Pain Intensity 7 - Physical Exam General Appearance: no apparent distress, alert, obese Eye Exam: PERRL/EOMI, eyes nml inspection Ears, Nose, Throat Exam: normal ENT inspection, moist mucous membranes Neck Exam: normal inspection, non-tender, supple, full range of motion Respiratory Exam: normal breath sounds, lungs clear, No chest tenderness, No respiratory distress Cardiovascular Exam: regular rate/rhythm, normal heart sounds, normal peripheral pulses Gastrointestinal/Abdomen Exam: soft, normal bowel sounds, tenderness (Mild left side), guarding ( tenderness to palpation mild left side), No rebound ( tenderness to palpation) Rectal Exam: not done Back Exam: normal inspection, normal range of motion, No CVA tenderness, No vertebral tenderness Extremity Exam: normal inspection, normal range of motion, pelvis stable Neurologic Exam: alert, oriented x 3, cooperative, 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 II-XII nml as tested, normal mood/affect, nml cerebellar function, nml station & gait, sensation nml Skin Exam: normal color, warm, dry Lymphatic Exam: No adenopathy SpO2 Interpretation: normal SpO2: 97 O2 Delivery: Room Air - Course Nursing assessment & vital signs reviewed: Yes Ordered Tests: Active Orders 24 hr Category Date Time Status IV Insertion STAT Care 05/11/22 20:32 Active ABDOMEN AND PELVIS W/0 CONTRAS [CT] Stat Exams 05/11/22 20:30 Taken AMYLASE Stat Lab 05/11/22 20:36 Completed CBC W DIFF Stat Lab 05/11/22 20:36 Completed CMP Stat Lab 05/11/22 20:36 Completed LIPASE Stat Lab 05/11/22 20:36 Completed Lactic Acid Stat Lab 05/11/22 20:38 Completed UA W/RFX CULTURE Stat Lab 05/11/22 Ordered Medication Summary Generic Name Dose Route Start Last Admin Trade Name Freq PRN Reason Stop Dose Admin Metronidazole 500 mg in 100 mls @ 200 mls/hr 05/11/22 22:16 Flagyl 500 Mg Ivpb IV 05/11/22 22:45 STAT STA Discontinued Medications Generic Name Dose Route Start Last Admin Trade Name Freq PRN Reason Stop Dose Admin Sodium Chloride 1,000 mls @ 999 mls/hr 05/11/22 20:59 05/11/22 21:02 Sodium Chloride 0.9% 1000 Ml IV 05/11/22 21:59 999 mls/hr .Q1H1M STA Administration Sodium Chloride Confirm 05/11/22 21:01 Sodium Chloride 0.9% 1000 Ml Administered 05/11/22 21:02 Dose 1,000 mls @ ud .ROUTE .STK-MED ONE Morphine Sulfate 4 mg 05/11/22 22:12 Morphine Sulfate 4 Mg/Ml Injection IV 05/11/22 22:13 STAT ONE Ondansetron HCl 4 mg 05/11/22 22:12 Ondansetron Hcl 4 Mg/2 Ml Vial IV 05/11/22 22:13 STAT ONE Lab/Rad Data: Laboratory Result Diagrams 05/11/22 20:36 05/11/22 20:36 Laboratory Results 05/11/22 05/11/22 05/11/22 Range/Units 20:38 20:36 20:36 WBC 14.0 H (4.0-10.5) x10^3/uL RBC 4.76 (4.1-5.6) x10^6/uL Hgb 13.0 (12.5-18.0) g/dL Hct 42.6 (42-50) % MCV 89.5 (78-100) fL MCH 27.3 (26-32) pg MCHC 30.5 L (32-36) g/dL RDW 14.0 (11.5-14.0) % Plt Count 303 (150-450) x10^3/uL MPV 11.9 H (7.5-11.0) fL Gran % 84.0 H (36.0-66.0) % Immature Gran % (Auto) 0.5 H (0.00-0.4) % Nucleat RBC Rel Count 0.0 (0.00-0.1) % Eos # (Auto) 0.28 (0-0.5) x10^3/uL Immature Gran # (Auto) 0.07 H (0.00-0.03) x10^3u/L Absolute Lymphs (auto) 1.05 (1.0-4.6) x10^3/uL Absolute Monos (auto) 0.74 (0.0-1.3) x10^3/uL Absolute Nucleated RBC 0.00 (0.00-0.01) x10^3u/L Lymphocytes % 7.5 L (24.0-44.0) % Monocytes % 5.3 (0.0-12.0) % Eosinophils % 2.0 (0.00-5.0) % Basophils % 0.7 (0.0-0.4) % Absolute Granulocytes 11.72 H (1.4-6.9) x10^3/uL Basophils # 0.10 (0-0.4) x10^3/uL Sodium 140 (137-145) mmol/L Potassium 4.2 (3.5-5.1) mmol/L Chloride 103 (98-107) mmol/L Carbon Dioxide 25 (22-30) mmol/L Anion Gap 15.9 H (5-15) MEQ/L BUN 21 H (9-20) mg/dL Creatinine 1.30 H (0.66-1.25) mg/dL Estimated GFR 57.0 ML/MIN Glucose 235 H (74-106) mg/dL Lactic Acid 3.1 H (0.4-2.0) Calcium 9.2 (8.4-10.2) mg/dL Total Bilirubin 1.20 (0.2-1.3) mg/dL AST 37 (17-59) U/L ALT 30 (0-50) U/L Alkaline Phosphatase 96 (38-126) U/L Serum Total Protein 7.7 (6.3-8.2) g/dL Albumin 4.6 (3.5-5.0) g/dL Amylase 122 H (30-110) U/L Lipase 549 H (23-300) U/L - Progress Progress: improved, pain not gone completely, re-examined Progress Note: 05/11/22 22:18 CAT scan of the abdomen pelvis without contrast shows fluid distended stomach and small bowel with fluid levels. Ileus versus gastroenteritis. Medical decision making: This patient has at least an ileus versus gastroenteritis. He has significant of pain and he requested pain medication. We are awaiting his urinalysis study to determine the degree of dehydration if present and also to see if there is UTI. Patient also had an elevated lactic acid level at 3.1. He has at least a mild pancreatitis as well. I spoke with his primary care doctor Dr. Hammonds. We will place him in observation and provide him with IV hydration, intravenous antibiotics of at least Flagyl, antiemetics and intravenous pain medication. I will repeat labs tomorrow morning. Discussed with : Samir Counseled pt/family regarding: lab results, diagnosis, rad results - Departure Departure Disposition: Observation Clinical Impression: Abdominal pain, Pancreatitis, Gastroenteritis, Leukocytosis Condition: Stable Critical Care Time: No Referrals: GONSALO HAMMONDS MD [Primary Care Provider] - Follow up/PCP as directed
[2022-05-11 20:37] LABS: Absolute Neutrophil Ct (ANC) 11.72 x10^3/uL (1.4-6.9); Eosinophil (Absolute #) 0.28 x10^3/uL (0-0.5); Hematocrit 42.6 % (42-50); Lymphocyte (Absolute #) 1.05 x10^3/uL (1.0-4.6); Lymphocytes % 7.5 % (24.0-44.0); Mean Cell Volume 89.5 fL (78-100); Mean Corpuscular Hemoglobin 27.3 pg (26-32); Mean Corpuscular Hgb Concent. 30.5 g/dL (32-36); Mean Platelet Volume 11.9 fL (7.5-11.0); Monocyte (Absolute #) 0.74 x10^3/uL (0.0-1.3); Monocytes % 5.3 % (0.0-12.0); Platelet Count 303 x10^3/uL (150-450); Red Blood Count 4.76 x10^6/uL (4.1-5.6)
[2022-05-11 20:45] LABS: ALBUMIN 4.6 g/dL (3.5-5.0); ANION GAP 15.9 MEQ/L (5-15); BILIRUBIN,TOTAL 1.2 mg/dL (0.2-1.3); Calcium 9.2 mg/dL (8.4-10.2); Creatinine 1 1.3 mg/dL (0.66-1.25); Potassium 4.2 mmol/L (3.5-5.1); Total Protein 7.7 g/dL (6.3-8.2)
[2022-05-11] MEDS ORDERED: Sodium Chloride 0.9% 1000 ML 1,000 ML IV STA ×2 (20:59→23:02)
[2022-05-11] MEDS ORDERED: Sodium Chloride 0.9% 1000 ML 1,000 ML ONE ×2 (21:01→23:03)
[2022-05-11] MEDS ORDERED: MORPHINE SULFATE 4 MG INJ IV ONE (22:12)
[2022-05-11] MEDS ORDERED: Zofran 4 MG/2 ML VIAL IV ONE (22:12)
[2022-05-11] MEDS ORDERED: FLAGYL 500 MG IVPB 500 MG/100 ML BAG IV STA (22:16)
[2022-05-11] MEDS ORDERED: Zofran 4 MG/2 ML VIAL ONE (22:24)
[2022-05-11] MEDS ORDERED: MORPHINE SULFATE 4 MG INJ ONE (22:25)
[2022-05-11] MEDS ORDERED: FLAGYL 500 MG IVPB 500 MG/100 ML BAG IV ONE (22:25)
[2022-05-11 22:45] LABS: Appearance CLEAR (CLEAR); Bilirubin NEGATIVE (NEGATIVE); Dipstick done @ ? MAIN LAB; Glucose >=1000 mg/dL (NEGATIVE); Ketones SMALL-15 (NEGATIVE); Nitrite NEGATIVE (NEGATIVE); Ph 5.5 (5-6); Protein,Urine Dip NEGATIVE (Negative); RBC NEGATIVE Ery/ul (0-5); Specific Gravity 1.025 (1.005-1.025); Urobilinogen 0.2 mg/dL (0-1)
[2022-05-11 22:46] LABS: Epithelial Cells RARE /HPF (FEW); Mucus SLIGHT /HPF (NEGATIVE); RBC 0-2 /HPF (0-2); Urine Cultured Indicated? NO; WBC 0-2 /HPF (0-5)
[2022-05-11 22:59] LABS: INFLUENZA A NEGATIVE (NEGATIVE); INFLUENZA B NEGATIVE (NEGATIVE); RESPIRATORY SYNCTIAL VIRUS NEGATIVE (Negative); SARS-CoV-2 Xpert Express NEGATIVE (NEGATIVE)
[2022-05-11] MEDS: VENTOLIN COMMON CANISTER IH SCH (23:25)
[2022-05-11] MEDS ORDERED: PROTONIX 40 MG IV IV SCH (23:31)
[2022-05-11] MEDS ORDERED: Zofran 4 MG/2 ML VIAL IV PRN (23:31)
[2022-05-11] MEDS ORDERED: MORPHINE SULFATE 4 MG INJ IV PRN (23:31)
[2022-05-11] MEDS ORDERED: TYLENOL 325 MG PO PRN (23:31)
[2022-05-12] MEDS: FLAGYL 500 MG IVPB 500 MG/100 ML BAG IV SCH ×4 (00:28→18:38)
[2022-05-12] MEDS ORDERED: Zofran 4 MG/2 ML VIAL ONE (01:51)
[2022-05-12 04:41] LABS: Absolute Neutrophil Ct (ANC) 17.52 x10^3/uL (1.4-6.9); Basophil (Absolute #) 0.06 x10^3/uL (0-0.4); Eosinophil % 0.2 % (0.00-5.0); Eosinophil (Absolute #) 0.03 x10^3/uL (0-0.5); Hematocrit 40.6 % (42-50); Hemoglobin 12.8 g/dL (12.5-18.0); Lymphocytes % 2.1 % (24.0-44.0); Mean Cell Volume 88.3 fL (78-100); Mean Corpuscular Hemoglobin 27.8 pg (26-32); Mean Corpuscular Hgb Concent. 31.5 g/dL (32-36); Mean Platelet Volume 11.3 fL (7.5-11.0); Monocyte (Absolute #) 1.33 x10^3/uL (0.0-1.3); Monocytes % 6.8 % (0.0-12.0); Neutrophil % 90.1 % (36.0-66.0); Platelet Count 312 x10^3/uL (150-450); Red Cell Distribution Width 14.3 % (11.5-14.0); White Blood Count 19.4 x10^3/uL (4.0-10.5)
[2022-05-12 04:50] LABS: AMYLASE 95 U/L (30-110); LIPASE 194 U/L (23-300)
[2022-05-12 04:53] LABS: ALBUMIN 4.5 g/dL (3.5-5.0); ANION GAP 18.5 MEQ/L (5-15); BILIRUBIN,TOTAL 1.6 mg/dL (0.2-1.3); Calcium 8.7 mg/dL (8.4-10.2); Creatinine 1 1.37 mg/dL (0.66-1.25); EST GLOMERULAR FILTRATION RATE 53.6 ML/MIN; Potassium 5.1 mmol/L (3.5-5.1); Total Protein 7.3 g/dL (6.3-8.2)
[2022-05-12 05:36] LABS: Slide Review 1 YES
[2022-05-12] MEDS: Lactated Ringers 1,000 ML IV SCH ×3 (05:37→21:28)
[2022-05-12] MEDS: Zofran 4 MG/2 ML VIAL IV PRN ×2 (05:37→09:30)
[2022-05-12] MEDS: VENTOLIN COMMON CANISTER IH SCH ×4 (06:36→19:21)
--- NOTE | 2022-05-12 08:52 | XRAY ---
Indication: Abdomen/flank pain. Nausea and constipation. Multiple contiguous axial images obtained through the abdomen and pelvis without contrast. Comparison: None Lung bases hyperinflated with minimal dependent atelectasis. No infiltrate or effusion. Heart not enlarged. Stomach is distended with food/fluid. Noncontrasted stomach and bowel loops appear nonobstructed. Small bowel loops are mildly uniformly fluid distended with fluid leveling, ileus versus gastroenteritis. Normal air-filled appendix. Colon demonstrates normal bowel gas with little scattered colonic fecal debris. No free fluid/air. Incidental 3.6 cm left lower renal exophytic cyst, tiny splenic calcified granulomas, and cholecystectomy clips. Remaining liver, pancreas, spleen, adrenal glands, kidneys, ureters, and bladder are unremarkable for noncontrast exam. Mild scattered aortoiliac calcifications without AAA. Osseous structures intact with mild osteopenia, mild/moderate degenerative changes throughout the thoracolumbar spine, and mild dextroscoliosis centered at L3. Small fatty supraumbilical ventral hernia. Impression: 1. Fluid distended stomach and small bowel loops with fluid leveling, ileus versus gastroenteritis. 2. Incidental left renal cyst, arteriosclerotic disease, chronic bony findings, small fatty ventral hernia, and old granulomatous disease.
[2022-05-12] MEDS ORDERED: Phenergan 25 MG INJ*** 25 MG in Sodium Chloride 0.9% 100 ML IV PRN (12:03)
[2022-05-12] MEDS ORDERED: SENOKOT 8.6 MG PO PRN (12:29)
[2022-05-12] MEDS ORDERED: ELIQUIS 2.5 MG TABLET PO SCH (13:00)
[2022-05-12] MEDS ORDERED: MEDICATION INTERVENTION MC SCH ×2 (13:00)
[2022-05-12] MEDS: NORVASC 5 MG PO SCH (13:41)
[2022-05-12] MEDS: Cozaar 50 MG PO SCH (13:41)
[2022-05-12] MEDS: Paxil 20 MG PO SCH (13:41)
[2022-05-12] MEDS: FISH OIL 1,000 MG CAPSULE PO SCH ×2 (13:41→21:27)
[2022-05-12] MEDS: Pepcid 20 MG PO SCH (13:41)
[2022-05-12] MEDS: Protonix 40MG Tablet PO SCH (13:42)
[2022-05-12] MEDS: THERAGRAN MULTIVITAMIN PO SCH (13:42)
[2022-05-12] MEDS: Toprol-Xl 25MG Tablets PO SCH ×2 (13:42→21:27)
[2022-05-12] MEDS: Toprol Xl 50 MG PO SCH ×2 (13:42→21:26)
[2022-05-12] MEDS: Vitamin B-12 500 MCG PO SCH (13:42)
[2022-05-12] MEDS: Vitamin E 400 UNIT SOFTGEL PO SCH (13:49)
[2022-05-12] MEDS: Vitamin B-6 (Pyridoxine) 100 MG PO SCH (13:49)
[2022-05-12] MEDS: Levofloxacin 500MG/100ML D5W 500 MG/100 ML BAG IV SCH (14:55)
--- NOTE | 2022-05-12 16:31 | XRAY ---
Indication: NG tube placement. Comparison: May 07, 2022 Portable chest demonstrates new NG tube tip mid to distal distal esophagus. Recommend advancement at least 15 cm. Remaining heart and lungs unremarkable again with left pacemaker. No new cardiopulmonary abnormalities.
--- NOTE | 2022-05-12 17:26 | PCM.HP ---
History of Present Illness - Chief Complaint Chief Complaint: abdominal pain, nausea and vomiting for 1 day History of Present Illness: is a 77 year old male. presents to the emergency department from home with left-sided abdominal pain which radiates into his left flank that began this afternoon. He did have a small bowel movement today but it was not much of 1 per his report. He has had mild nausea but no vomiting or diarrhea. Patient has a history of arrhythmias, hypertension, peripheral neuropathy, COPD, pulmonary embolism, diabetes type 2, pacemaker defibrillator placement and prostate issues. Patient denies chest pain and he denies shortness of breath. Timing/Duration: today Activities at Onset: none Quality: dullness, pressure Abdominal Pain Onset Location: LUQ, LLQ Pain Radiation: flank (Left) Severity of Pain-Max: mild (To moderate) Severity of Pain-Current: mild (To moderate) Associated Symptoms: nausea, No chest pain, No diarrhea, No fever/chills, No shortness of breath, No vomiting Previous symptoms: no prior history - Review of Systems Constitutional: No Fever, No Chills Eyes: No Symptoms Ears, Nose, & Throat: No Symptoms Respiratory: No Cough, No Short Of Breath Cardiac: No Chest Pain, No Edema, No Syncope Abdominal/Gastrointestinal: Abdominal Pain, Nausea, Vomiting, No Diarrhea Genitourinary Symptoms: No Dysuria Musculoskeletal: No Back Pain, No Neck Pain Skin: No Rash Neurological: No Dizziness, No Focal Weakness, No Sensory Changes Psychological: No Symptoms Endocrine: No Symptoms Hematologic/Lymphatic: No Symptoms Immunological/Allergic: No Symptoms Medications & Allergies Home Medications: Home Medication List Losartan Potassium 50 mg PO DAILY 09/08/15 [History Confirmed 05/11/22] Metformin HCl 500 mg [Glucophage 500 MG] 500 mg PO HS 09/08/15 [History Confirmed 05/11/22] Metoprolol Succinate 75 mg PO BID 09/08/15 [History Confirmed 05/11/22] Multivitamin [Multi-Vitamin Daily] 1 each PO DAILY 09/08/15 [History Confirmed 05/11/22] Nabumetone [Relafen] 500 mg PO BID 09/08/15 [History Confirmed 05/11/22] Pyridoxine HCl (Vitamin B6) [Vitamin B-6] 100 mg PO DAILY 09/08/15 [History Confirmed 05/11/22] Senna 8.6 mg [Senokot 8.6 mg] 8.6 mg PO DAILY PRN PRN 09/08/15 [History Confirmed 05/11/22] Tamsulosin HCl 0.4 mg [Flomax 0.4 MG] 0.8 mg PO HS 09/08/15 [History Confirmed 05/11/22] Vitamin E 400 Units [Vitamin E 400 UNIT SOFTGEL] 400 unit PO DAILY 09/08/15 [History Confirmed 05/11/22] Omeprazole 20 mg PO DAILY 10/21/15 [History Confirmed 05/11/22] Apixaban [Eliquis] 5 mg PO BID 02/16/20 [History Confirmed 05/11/22] Famotidine 20 mg [Pepcid 20 MG] 20 mg PO DAILY 02/23/20 [History Confirmed 05/11/22] Cyanocobalamin (Vitamin B-12) [Vitamin B12] 1,000 mcg PO DAILY 09/24/20 [History Confirmed 05/11/22] PARoxetine HCL [Paroxetine HCl] 20 mg PO DAILY 09/24/20 [History Confirmed 05/11/22] Rosuvastatin Calcium 10 mg PO HS 09/24/20 [History Confirmed 05/11/22] Ubidecarenone [Co Q-10] 200 mg PO DAILY 09/24/20 [History Confirmed 05/11/22] Albuterol Sulfate [Proair Hfa] 8.5 gm IH Q4-6HPRN PRN 05/11/22 [History Confirmed 05/11/22] Amlodipine Besylate [Norvasc] 2.5 mg PO DAILY 05/11/22 [History Confirmed 05/11/22] [place]-3/Dha/Epa/Fish Oil [Fish Oil 1,000 mg Softgel] 4,000 mg PO BID 05/11/22 [History Confirmed 05/11/22] Allergies/Adverse Reactions: Allergies Allergy/AdvReac Type Severity Reaction Status Date / Time Sulfa (Sulfonamide Allergy Severe Verified 05/11/22 19:49 Antibiotics) codeine Allergy Intermediate Nausea and Verified 05/11/22 19:49 Vomiting cephalexin [From Keflex] Allergy Unknown Verified 05/11/22 19:49 - Past Medical History Past Medical History: Yes Neurological History: Peripheral Neuropathy ENT History: No Pertinent History Cardiac History: Arrhythmia, Hypertension Respiratory History: COPD, Pulmonary Embolism, Sleep Apnea Endocrine Medical History: Diabetes Type II Musculoskelatal History: Osteoarthritis GI Medical History: Gallbladder Disease History: No Pertinent History Pyscho-Social History: Depression Male Reproductive Disorders: Prostate Problems Comment: SURGERY ON L QUAD AFTER A TEAR, CODED AT [facility] DUE TO A BLOOD CLOT. RECENT BRAIN SCAN BY DR. GARIBAY, WAS PASSING OUT DUE TO SYCOPE. ABLASION OF HEART TO TX AFIB 1 MONTH AGO. PACEMAKER, DEFIBRILLATOR. - Past Surgical History Past Surgical History: Yes Neuro Surgical History: No Pertinent History Cardiac History: Pacemaker Respiratory Surgery: No Pertinent History GI Surgical History: Cholecystectomy Genitourinary Surgical Hx: No Pertinent History Musculskeletal Surgical Hx: Orthopedic Surgery Male Surgical History: Other Other Surgical History: dental surgical extractions,left knee feb after fall on ice,tear of tendons repaired. - Social History Smoking Status: Former smoker How long have you smoked: 42 years Exposure to second hand smoke: No Alcohol: None Drug Use: none Significant Family History: diabetes, hypertension - Physical Exam Vital Signs: Vital Signs - 24 hr Temp Pulse Resp BP BP Pulse Ox 05/12/22 16:00 97.7 F 88 16 149/73 97 05/12/22 15:28 102 H 20 95 05/12/22 11:48 98.0 F 99 H 16 186/85 94 L 05/12/22 11:11 102 H 20 94 L 05/12/22 07:16 98.6 F 98 H 16 163/76 93 L 05/12/22 06:52 102 H 20 92 L 05/12/22 04:00 97.5 F 94 H 18 155/76 90 L 05/12/22 00:00 98.6 F 89 20 146/80 92 L 05/11/22 23:37 98.6 F 89 20 146/80 92 L 05/11/22 23:00 85 20 124/91 96 05/11/22 22:34 85 20 162/87 98 05/11/22 22:25 86 20 96 05/11/22 22:21 97 05/11/22 21:00 80 17 175/82 97 05/11/22 20:31 78 18 155/78 97 05/11/22 19:33 97.1 F 60 20 175/85 97 General Appearance: no apparent distress, alert Neurologic Exam: alert, oriented x 3, cooperative, normal mood/affect, nml cerebellar function, nml station & gait, sensation nml, No motor deficits Eye Exam: PERRL/EOMI, eyes nml inspection Ears, Nose, Throat Exam: normal ENT inspection, TMs normal, pharynx normal, moist mucous membranes Neck Exam: normal inspection, non-tender, supple, full range of motion Respiratory Exam: normal breath sounds, lungs clear, No respiratory distress Cardiovascular Exam: regular rate/rhythm, normal heart sounds, normal peripheral pulses Gastrointestinal/Abdomen Exam: distention, other (hypoactive bowel sounds), No tenderness, No mass Back Exam: normal inspection, normal range of motion, No CVA tenderness, No vertebral tenderness Extremity Exam: normal inspection, normal range of motion, pelvis stable Skin Exam: normal color, warm, dry, No rash Lymphatic Exam: No adenopathy Results - Labs Lab/Micro Results: Lab Results-Last 24 Hours 05/11/22 05/11/22 05/11/22 Range/Units 20:36 20:36 20:38 WBC 14.0 H (4.0-10.5) x10^3/uL RBC 4.76 (4.1-5.6) x10^6/uL Hgb 13.0 (12.5-18.0) g/dL Hct 42.6 (42-50) % MCV 89.5 (78-100) fL MCH 27.3 (26-32) pg MCHC 30.5 L (32-36) g/dL RDW 14.0 (11.5-14.0) % Plt Count 303 (150-450) x10^3/uL MPV 11.9 H (7.5-11.0) fL Gran % 84.0 H (36.0-66.0) % Immature Gran % (Auto) 0.5 H (0.00-0.4) % Nucleat RBC Rel Count 0.0 (0.00-0.1) % Eos # (Auto) 0.28 (0-0.5) x10^3/uL Immature Gran # (Auto) 0.07 H (0.00-0.03) x10^3u/L Absolute Lymphs (auto) 1.05 (1.0-4.6) x10^3/uL Absolute Monos (auto) 0.74 (0.0-1.3) x10^3/uL Absolute Nucleated RBC 0.00 (0.00-0.01) x10^3u/L Lymphocytes % 7.5 L (24.0-44.0) % Monocytes % 5.3 (0.0-12.0) % Eosinophils % 2.0 (0.00-5.0) % Basophils % 0.7 (0.0-0.4) % Absolute Granulocytes 11.72 H (1.4-6.9) x10^3/uL Basophils # 0.10 (0-0.4) x10^3/uL Sodium 140 (137-145) mmol/L Potassium 4.2 (3.5-5.1) mmol/L Chloride 103 (98-107) mmol/L Carbon Dioxide 25 (22-30) mmol/L Anion Gap 15.9 H (5-15) MEQ/L BUN 21 H (9-20) mg/dL Creatinine 1.30 H (0.66-1.25) mg/dL Estimated GFR 57.0 ML/MIN Glucose 235 H (74-106) mg/dL Lactic Acid 3.1 H (0.4-2.0) Calcium 9.2 (8.4-10.2) mg/dL Total Bilirubin 1.20 (0.2-1.3) mg/dL AST 37 (17-59) U/L ALT 30 (0-50) U/L Alkaline Phosphatase 96 (38-126) U/L Serum Total Protein 7.7 (6.3-8.2) g/dL Albumin 4.6 (3.5-5.0) g/dL Amylase 122 H (30-110) U/L Lipase 549 H (23-300) U/L Urinalys Dipstick Clnc Urine Color (YELLOW) Urine Appearance (CLEAR) Urine pH (5-6) Ur Specific [place] (1.005-1.025) POC Urine Protein Conf (Negative) Urine Ketones (NEGATIVE) Urine Nitrite (NEGATIVE) Urine Bilirubin (NEGATIVE) Urine Urobilinogen (0-1) mg/dL Urine Leukocytes (NEGATIVE) Urine WBC (Auto) (0-5) /HPF Urine RBC (Auto) (0-2) /HPF U Epithel Cells (Auto) (FEW) /HPF Urine Bacteria (Auto) Urine RBC (0-5) Eric/ul Urine Mucus (Auto) (NEGATIVE) /HPF Ur Culture Indicated? Urine Glucose (NEGATIVE) mg/dL Influenza Type A Ag (NEGATIVE) Influenza Type B Ag (NEGATIVE) RSV (PCR) (Negative) SARS-CoV-2 (PCR) (NEGATIVE) Slides for Path Review 05/11/22 05/11/22 05/11/22 Range/Units 22:31 22:44 Unknown WBC (4.0-10.5) x10^3/uL RBC (4.1-5.6) x10^6/uL Hgb (12.5-18.0) g/dL Hct (42-50) % MCV (78-100) fL MCH (26-32) pg MCHC (32-36) g/dL RDW (11.5-14.0) % Plt Count (150-450) x10^3/uL MPV (7.5-11.0) fL Gran % (36.0-66.0) % Immature Gran % (Auto) (0.00-0.4) % Nucleat RBC Rel Count (0.00-0.1) % Eos # (Auto) (0-0.5) x10^3/uL Immature Gran # (Auto) (0.00-0.03) x10^3u/L Absolute Lymphs (auto) (1.0-4.6) x10^3/uL Absolute Monos (auto) (0.0-1.3) x10^3/uL Absolute Nucleated RBC (0.00-0.01) x10^3u/L Lymphocytes % (24.0-44.0) % Monocytes % (0.0-12.0) % Eosinophils % (0.00-5.0) % Basophils % (0.0-0.4) % Absolute Granulocytes (1.4-6.9) x10^3/uL Basophils # (0-0.4) x10^3/uL Sodium (137-145) mmol/L Potassium (3.5-5.1) mmol/L Chloride (98-107) mmol/L Carbon Dioxide (22-30) mmol/L Anion Gap (5-15) MEQ/L BUN (9-20) mg/dL Creatinine (0.66-1.25) mg/dL Estimated GFR ML/MIN Glucose (74-106) mg/dL Lactic Acid 3.5 H (0.4-2.0) Calcium (8.4-10.2) mg/dL Total Bilirubin (0.2-1.3) mg/dL AST (17-59) U/L ALT (0-50) U/L Alkaline Phosphatase (38-126) U/L Serum Total Protein (6.3-8.2) g/dL Albumin (3.5-5.0) g/dL Amylase (30-110) U/L Lipase (23-300) U/L Urinalys Dipstick Clnc MAIN LAB Urine Color YELLOW (YELLOW) Urine Appearance CLEAR (CLEAR) Urine pH 5.5 (5-6) Ur Specific [place] 1.025 (1.005-1.025) POC Urine Protein Conf NEGATIVE (Negative) Urine Ketones SMALL-15 (NEGATIVE) Urine Nitrite NEGATIVE (NEGATIVE) Urine Bilirubin NEGATIVE (NEGATIVE) Urine Urobilinogen 0.2 (0-1) mg/dL Urine Leukocytes NEGATIVE (NEGATIVE) Urine WBC (Auto) 0-2 (0-5) /HPF Urine RBC (Auto) 0-2 (0-2) /HPF U Epithel Cells (Auto) RARE (FEW) /HPF Urine Bacteria (Auto) Not Reportable Urine RBC NEGATIVE (0-5) Eric/ul Urine Mucus (Auto) SLIGHT (NEGATIVE) /HPF Ur Culture Indicated? NO Urine Glucose >=1000 (NEGATIVE) mg/dL Influenza Type A Ag NEGATIVE (NEGATIVE) Influenza Type B Ag NEGATIVE (NEGATIVE) RSV (PCR) NEGATIVE (Negative) SARS-CoV-2 (PCR) NEGATIVE (NEGATIVE) Slides for Path Review 05/12/22 05/12/22 05/12/22 Range/Units 04:30 04:30 04:30 WBC 19.4 H (4.0-10.5) x10^3/uL RBC 4.60 (4.1-5.6) x10^6/uL Hgb 12.8 (12.5-18.0) g/dL Hct 40.6 L (42-50) % MCV 88.3 (78-100) fL MCH 27.8 (26-32) pg MCHC 31.5 L (32-36) g/dL RDW 14.3 H (11.5-14.0) % Plt Count 312 (150-450) x10^3/uL MPV 11.3 H (7.5-11.0) fL Gran % 90.1 H (36.0-66.0) % Immature Gran % (Auto) 0.5 H (0.00-0.4) % Nucleat RBC Rel Count 0.0 (0.00-0.1) % Eos # (Auto) 0.03 (0-0.5) x10^3/uL Immature Gran # (Auto) 0.09 H (0.00-0.03) x10^3u/L Absolute Lymphs (auto) 0.40 L (1.0-4.6) x10^3/uL Absolute Monos (auto) 1.33 H (0.0-1.3) x10^3/uL Absolute Nucleated RBC 0.00 (0.00-0.01) x10^3u/L Lymphocytes % 2.1 L (24.0-44.0) % Monocytes % 6.8 (0.0-12.0) % Eosinophils % 0.2 (0.00-5.0) % Basophils % 0.3 (0.0-0.4) % Absolute Granulocytes 17.52 H (1.4-6.9) x10^3/uL Basophils # 0.06 (0-0.4) x10^3/uL Sodium 140 (137-145) mmol/L Potassium 5.1 D (3.5-5.1) mmol/L Chloride 104 (98-107) mmol/L Carbon Dioxide 22 (22-30) mmol/L Anion Gap 18.5 H (5-15) MEQ/L BUN 22 H (9-20) mg/dL Creatinine 1.37 H (0.66-1.25) mg/dL Estimated GFR 53.6 ML/MIN Glucose 285 H (74-106) mg/dL Lactic Acid (0.4-2.0) Calcium 8.7 (8.4-10.2) mg/dL Total Bilirubin 1.60 H (0.2-1.3) mg/dL AST 34 (17-59) U/L ALT 30 (0-50) U/L Alkaline Phosphatase 90 (38-126) U/L Serum Total Protein 7.3 (6.3-8.2) g/dL Albumin 4.5 (3.5-5.0) g/dL Amylase 95 (30-110) U/L Lipase 194 (23-300) U/L Urinalys Dipstick Clnc Urine Color (YELLOW) Urine Appearance (CLEAR) Urine pH (5-6) Ur Specific [place] (1.005-1.025) POC Urine Protein Conf (Negative) Urine Ketones (NEGATIVE) Urine Nitrite (NEGATIVE) Urine Bilirubin (NEGATIVE) Urine Urobilinogen (0-1) mg/dL Urine Leukocytes (NEGATIVE) Urine WBC (Auto) (0-5) /HPF Urine RBC (Auto) (0-2) /HPF U Epithel Cells (Auto) (FEW) /HPF Urine Bacteria (Auto) Urine RBC (0-5) Eric/ul Urine Mucus (Auto) (NEGATIVE) /HPF Ur Culture Indicated? Urine Glucose (NEGATIVE) mg/dL Influenza Type A Ag (NEGATIVE) Influenza Type B Ag (NEGATIVE) RSV (PCR) (Negative) SARS-CoV-2 (PCR) (NEGATIVE) Slides for Path Review YES 05/12/22 Range/Units 04:30 WBC (4.0-10.5) x10^3/uL RBC (4.1-5.6) x10^6/uL Hgb (12.5-18.0) g/dL Hct (42-50) % MCV (78-100) fL MCH (26-32) pg MCHC (32-36) g/dL RDW (11.5-14.0) % Plt Count (150-450) x10^3/uL MPV (7.5-11.0) fL Gran % (36.0-66.0) % Immature Gran % (Auto) (0.00-0.4) % Nucleat RBC Rel Count (0.00-0.1) % Eos # (Auto) (0-0.5) x10^3/uL Immature Gran # (Auto) (0.00-0.03) x10^3u/L Absolute Lymphs (auto) (1.0-4.6) x10^3/uL Absolute Monos (auto) (0.0-1.3) x10^3/uL Absolute Nucleated RBC (0.00-0.01) x10^3u/L Lymphocytes % (24.0-44.0) % Monocytes % (0.0-12.0) % Eosinophils % (0.00-5.0) % Basophils % (0.0-0.4) % Absolute Granulocytes (1.4-6.9) x10^3/uL Basophils # (0-0.4) x10^3/uL Sodium (137-145) mmol/L Potassium (3.5-5.1) mmol/L Chloride (98-107) mmol/L Carbon Dioxide (22-30) mmol/L Anion Gap (5-15) MEQ/L BUN (9-20) mg/dL Creatinine (0.66-1.25) mg/dL Estimated GFR ML/MIN Glucose (74-106) mg/dL Lactic Acid 3.8 H (0.4-2.0) Calcium (8.4-10.2) mg/dL Total Bilirubin (0.2-1.3) mg/dL AST (17-59) U/L ALT (0-50) U/L Alkaline Phosphatase (38-126) U/L Serum Total Protein (6.3-8.2) g/dL Albumin (3.5-5.0) g/dL Amylase (30-110) U/L Lipase (23-300) U/L Urinalys Dipstick Clnc Urine Color (YELLOW) Urine Appearance (CLEAR) Urine pH (5-6) Ur Specific [place] (1.005-1.025) POC Urine Protein Conf (Negative) Urine Ketones (NEGATIVE) Urine Nitrite (NEGATIVE) Urine Bilirubin (NEGATIVE) Urine Urobilinogen (0-1) mg/dL Urine Leukocytes (NEGATIVE) Urine WBC (Auto) (0-5) /HPF Urine RBC (Auto) (0-2) /HPF U Epithel Cells (Auto) (FEW) /HPF Urine Bacteria (Auto) Urine RBC (0-5) Eric/ul Urine Mucus (Auto) (NEGATIVE) /HPF Ur Culture Indicated? Urine Glucose (NEGATIVE) mg/dL Influenza Type A Ag (NEGATIVE) Influenza Type B Ag (NEGATIVE) RSV (PCR) (Negative) SARS-CoV-2 (PCR) (NEGATIVE) Slides for Path Review - Radiology Impressions Radiology Exams & Impressions: Radiology Procedures Category Date Time Status ABDOMEN AND PELVIS W/0 CONTRAS [CT] Stat Exams 05/11/22 20:30 Completed CHEST 1 VIEW (PORTABLE) Urgent Exams 05/12/22 00:[address]/ABDOMEN AND PELVIS W/0 CONTRAS Indication: Abdomen/flank pain. Nausea and constipation. Multiple contiguous axial images obtained through the abdomen and pelvis without contrast. Comparison: None Lung bases hyperinflated with minimal dependent atelectasis. No infiltrate or effusion. Heart not enlarged. Stomach is distended with food/fluid. Noncontrasted stomach and bowel loops appear nonobstructed. Small bowel loops are mildly uniformly fluid distended with fluid leveling, ileus versus gastroenteritis. Normal air-filled appendix. Colon demonstrates normal bowel gas with little scattered colonic fecal debris. No free fluid/air. Incidental 3.6 cm left lower renal exophytic cyst, tiny splenic calcified granulomas, and cholecystectomy clips. Remaining liver, pancreas, spleen, adrenal glands, kidneys, ureters, and bladder are unremarkable for noncontrast exam. Mild scattered aortoiliac calcifications without AAA. Osseous structures intact with mild osteopenia, mild/moderate degenerative changes throughout the thoracolumbar spine, and mild dextroscoliosis centered at L3. Small fatty supraumbilical ventral hernia. Impression: 1. Fluid distended stomach and small bowel loops with fluid leveling, ileus versus gastroenteritis. 2. Incidental left renal cyst, arteriosclerotic disease, chronic bony findings, small fatty ventral hernia, and old granulomatous disease. - Other Procedures and Tests Respiratory Therapy 05/11/22 23:52 Respiratory Therapy Assessment DAILY 05/12/22 00:29 BiPap/CPAP ROUTINE 05/12/22 11:24 Oxygen Nasal Cannula 2 lpm Assessment/Plan (1) Paralytic ileus Current Visit: Yes Status: Acute Assessment & Plan: Chief Complaint Diagnosis ILEUS Allergies Allergy/AdvReac Type Severity Reaction Status Date / Time Sulfa (Sulfonamide Allergy Severe Verified 05/11/22 19:49 Antibiotics) codeine Allergy Intermediate Nausea and Verified 05/11/22 19:49 Vomiting cephalexin [From Keflex] Allergy Unknown Verified 05/11/22 19:49 Vital Signs (Last 24 hours) Temp Pulse Resp BP BP Pulse Ox 05/12/22 16:00 97.7 F 88 16 149/73 97 05/12/22 15:28 102 H 20 95 05/12/22 11:48 98.0 F 99 H 16 186/85 94 L 05/12/22 11:11 102 H 20 94 L 05/12/22 07:16 98.6 F 98 H 16 163/76 93 L 05/12/22 06:52 102 H 20 92 L 05/12/22 04:00 97.5 F 94 H 18 155/76 90 L 05/12/22 00:00 98.6 F 89 20 146/80 92 L 05/11/22 23:37 98.6 F 89 20 146/80 92 L 05/11/22 23:00 85 20 124/91 96 05/11/22 22:34 85 20 162/87 98 05/11/22 22:25 86 20 96 05/11/22 22:21 97 05/11/22 21:00 80 17 175/82 97 05/11/22 20:31 78 18 155/78 97 05/11/22 19:33 97.1 F 60 20 175/85 97 Home Medications Medication Instructions Recorded Confirmed Last Taken Type Albuterol Sulfate [Proair Hfa] 8.5 gm IH Q4-6HPRN PRN 05/11/22 05/11/22 Unknown History Amlodipine Besylate [Norvasc] 2.5 mg PO DAILY 05/11/22 05/11/22 05/11/22 09:00 History [place]-3/Dha/Epa/Fish Oil [Fish Oil 4,000 mg PO BID 05/11/22 05/11/22 05/11/22 18:00 History 1,000 mg Softgel] Current Medications Generic Name Dose Route Start Last Admin Trade Name Amalia PRN Reason Stop Dose Admin Acetaminophen 650 mg 05/11/22 23:31 Acetaminophen 325 Mg Tablet PO 06/10/22 23:30 Q4H PRN PRN PAIN, FEVER, HEADACHE Albuterol Sulfate 2 puff 05/12/22 11:36 05/12/22 15:28 Albuterol Common Canister Inhaler IH 06/11/22 06:59 2 puff QIDRT DAHLIA Administration Amlodipine Besylate 2.5 mg 05/12/22 13:00 05/12/22 13:41 Amlodipine Besylate 5 Mg Tablet PO 06/11/22 12:59 Not Given DAILY DAHLIA Apixaban 5 mg 05/12/22 13:00 05/12/22 13:41 Apixaban 2.5 Mg Tablet PO 06/11/22 12:59 Not Given BID DAHLIA Cyanocobalamin 1,000 mcg 05/12/22 13:00 05/12/22 13:42 Cyanocobalamin 500 Mcg Tablet PO 06/11/22 12:59 Not Given DAILY DAHLIA Famotidine 20 mg 05/12/22 13:00 05/12/22 13:41 Famotidine 20 Mg Tablet PO 06/11/22 12:59 Not Given DAILY DAHLIA Fish Oil 4,000 mg 05/12/22 13:00 05/12/22 13:41 [place]-3 Fatty Acids/Fish Oil 1000 Mg Capsule PO 06/11/22 12:59 Not Given BID DAHLIA Metronidazole 500 mg in 100 mls @ 200 mls/hr 05/12/22 00:00 05/12/22 11:42 Flagyl 500 Mg Ivpb IV 06/11/22 00:00 200 mls/hr Q6HT DAHLIA Administration Lactated Ringer's 1,000 mls @ 150 mls/hr 05/12/22 05:30 05/12/22 05:37 Lactated Ringers IV 06/11/22 05:29 150 mls/hr .Q6H40M DAHLIA Administration Promethazine HCl 25 mg/ Sodium 101 mls @ 200 mls/hr 05/12/22 12:03 05/12/22 12:41 Chloride IV 06/11/22 12:02 200 mls/hr Q4H PRN PRN Administration UNCONTROLLED NAUSEA Levofloxacin/Dextrose 500 mg in 100 mls @ 100 mls/hr 05/12/22 14:00 05/12/22 14:55 Levofloxacin 500mg/100ml D5w IV 06/11/22 13:59 100 mls/hr DAILY DAHLIA Administration Losartan Potassium 50 mg 05/12/22 13:00 05/12/22 13:41 Losartan Potassium 50 Mg Tablet PO 06/11/22 12:59 Not Given DAILY DAHLIA Metformin HCl 500 mg 05/12/22 22:00 Metformin Hcl 500 Mg Tablet PO 06/11/22 21:59 HS DAHLIA Metoprolol Succinate 50 mg 05/12/22 13:00 05/12/22 13:42 Metoprolol Succinate 50 Mg Tablet.Sa PO 06/11/22 12:59 Not Given BID DAHLIA Metoprolol Succinate 25 mg 05/12/22 13:00 05/12/22 13:42 Metoprolol Succinate 25 Mg Xl Tab PO 06/11/22 12:59 Not Given BID [facility] Miscellaneous Information 1 each 05/12/22 13:00 Medication Intervention 1 Each Each 06/11/22 12:59 .RN TO CHECK [facility] Miscellaneous Information 1 each 05/12/22 13:00 Medication Intervention 1 Each Each 06/11/22 12:59 .RN TO CHECK DAHLIA Morphine Sulfate 4 mg 05/11/22 23:31 05/12/22 01:55 Morphine Sulfate 4 Mg/Ml Injection IV 05/16/22 23:30 4 mg Q6H PRN PRN Administration PAIN Multivitamins Therapeutic 1 tab 05/12/22 13:00 05/12/22 13:42 Multivitamins,Therapeutic 1 Tab Tab PO 06/11/22 12:59 Not Given DAILY DAHLIA Ondansetron HCl 4 mg 05/12/22 05:25 05/12/22 09:30 Ondansetron Hcl 4 Mg/2 Ml Vial IV 06/11/22 05:22 4 mg Q4H PRN PRN Administration NAUSEA/VOMITING Pantoprazole Sodium 40 mg 05/12/22 13:00 05/12/22 13:42 Protonix (Pantoprazole) 40 Mg Tablet PO 06/11/22 12:59 Not Given DAILY [facility] Paroxetine HCl 20 mg 05/12/22 13:00 05/12/22 13:41 Paroxetine Hcl 20 Mg Tablet PO 06/11/22 12:59 Not Given DAILY [facility] Pyridoxine HCl 100 mg 05/12/22 13:00 05/12/22 13:49 Pyridoxine Hcl 100 Mg Tablet PO 06/11/22 12:59 Not Given DAILY [facility] Senna 8.6 mg 05/12/22 12:29 Senna 8.6 Mg Tablet PO 06/11/22 12:28 DAILY PRN PRN CONSTIPATION Simvastatin 20 mg 05/12/22 22:00 Simvastatin 20 Mg Tablet PO 06/11/22 21:59 HS DAHLIA Tamsulosin HCl 0.8 mg 05/12/22 22:00 Tamsulosin Hcl 0.4 Mg Cap PO 06/11/22 21:59 HS DAHLIA Vitamin E 400 u 05/12/22 13:00 05/12/22 13:49 Vitamin E 400 Iu Softgel PO 06/11/22 12:59 Not Given DAILY DAHLIA Discontinued Medications Generic Name Dose Route Start Last Admin Trade Name Amalia PRN Reason Stop Dose Admin Albuterol Sulfate 4 puff 05/12/22 07:00 05/12/22 11:11 Albuterol Common Canister Inhaler IH 06/11/22 06:59 4 puff QIDRT DAHLIA Administration Sodium Chloride 1,000 mls @ 999 mls/hr 05/11/22 20:59 05/11/22 21:02 Sodium Chloride 0.9% 1000 Ml IV 05/11/22 21:59 999 mls/hr .Q1H1M STA Administration Sodium Chloride Confirm 05/11/22 21:01 Sodium Chloride 0.9% 1000 Ml Administered 05/11/22 21:02 Dose 1,000 mls @ ud .ROUTE .STK-MED ONE Metronidazole 500 mg in 100 mls @ 200 mls/hr 05/11/22 22:16 05/11/22 22:35 Flagyl 500 Mg Ivpb IV 05/11/22 22:45 200 ml/hr STAT STA 200 mls/hr Administration Metronidazole Confirm 05/11/22 22:25 Flagyl 500 Mg Ivpb Administered 05/11/22 22:26 Dose 500 mg in 100 mls @ ud IV .STK-MED ONE Sodium Chloride 1,000 mls @ 999 mls/hr 05/11/22 23:02 05/11/22 23:04 Sodium Chloride 0.9% 1000 Ml IV 05/12/22 00:02 999 mls/hr .Q1H1M STA Administration Sodium Chloride Confirm 05/11/22 23:03 Sodium Chloride 0.9% 1000 Ml Administered 05/11/22 23:04 Dose 1,000 mls @ ud .ROUTE .STK-MED ONE Sodium Chloride 1,000 mls @ 100 mls/hr 05/11/22 23:31 05/12/22 00:16 Sodium Chloride 0.45% 1000 Ml IV 06/10/22 23:30 100 mls/hr .Q10H DAHLIA Administration Sodium Chloride Confirm 05/12/22 00:15 Sodium Chloride 0.45% 1000 Ml Administered 05/12/22 00:16 Dose 1,000 mls @ ud IV .STK-MED ONE Morphine Sulfate 4 mg 05/11/22 22:12 05/11/22 22:31 Morphine Sulfate 4 Mg/Ml Injection IV 05/11/22 22:13 4 mg STAT ONE Administration Morphine Sulfate Confirm 05/11/22 22:25 Morphine Sulfate 4 Mg/Ml Injection Administered 05/11/22 22:26 Dose 4 mg .ROUTE .STK-MED ONE Ondansetron HCl 4 mg 05/11/22 22:12 05/11/22 22:32 Ondansetron Hcl 4 Mg/2 Ml Vial IV 05/11/22 22:13 4 mg STAT ONE Administration Ondansetron HCl Confirm 05/11/22 22:24 Ondansetron Hcl 4 Mg/2 Ml Vial Administered 05/11/22 22:25 Dose 4 mg .ROUTE .STK-MED ONE Ondansetron HCl 4 mg 05/11/22 23:31 05/12/22 01:53 Ondansetron Hcl 4 Mg/2 Ml Vial IV 06/10/22 23:30 4 mg Q6H PRN PRN Administration NAUSEA/VOMITING Ondansetron HCl Confirm 05/12/22 01:51 Ondansetron Hcl 4 Mg/2 Ml Vial Administered 05/12/22 01:52 Dose 4 mg .ROUTE .STK-MED ONE Pantoprazole Sodium 40 mg 05/11/22 23:31 05/12/22 00:27 Pantoprazole 40 Mg Vial IV 06/10/22 23:30 40 mg Q24H DAHLIA Administration Pantoprazole Sodium 40 mg 05/12/22 22:00 Pantoprazole 40 Mg Vial IV 06/10/22 23:30 QPM DAHLIA Intake & Output (Last 24 hours) 05/10/22 05/11/22 05/12/22 05/13/22 11:59 11:59 11:59 11:59 Intake Total 540 0 Output Total 1250 2750 Balance -710 -2750 Weight 146.1 kg Laboratory Results (Last 24 hours) 05/12/22 05/12/22 05/12/22 04:30 04:30 04:30 WBC RBC Hgb Hct MCV MCH MCHC RDW Plt Count MPV Gran % Immature Gran % (Auto) Nucleat RBC Rel Count Eos # (Auto) Immature Gran # (Auto) Absolute Lymphs (auto) Absolute Monos (auto) Absolute Nucleated RBC Lymphocytes % Monocytes % Eosinophils % Basophils % Absolute Granulocytes Basophils # Sodium 140 Potassium 5.1 D Chloride 104 Carbon Dioxide 22 Anion Gap 18.5 H BUN 22 H Creatinine 1.37 H Estimated GFR 53.6 Glucose 285 H Lactic Acid 3.8 H Calcium 8.7 Total Bilirubin 1.60 H AST 34 ALT 30 Alkaline Phosphatase 90 Serum Total Protein 7.3 Albumin 4.5 Amylase 95 Lipase 194 Urinalys Dipstick Clnc Urine Color Urine Appearance Urine pH Ur Specific [place] POC Urine Protein Conf Urine Ketones Urine Nitrite Urine Bilirubin Urine Urobilinogen Urine Leukocytes Urine WBC (Auto) Urine RBC (Auto) U Epithel Cells (Auto) Urine Bacteria (Auto) Urine RBC Urine Mucus (Auto) Ur Culture Indicated? Urine Glucose Influenza Type A Ag Influenza Type B Ag RSV (PCR) SARS-CoV-2 (PCR) Slides for Path Review 05/12/22 05/11/22 05/11/22 04:30 Unknown 22:44 WBC 19.4 H RBC 4.60 Hgb 12.8 Hct 40.6 L MCV 88.3 MCH 27.8 MCHC 31.5 L RDW 14.3 H Plt Count 312 MPV 11.3 H Gran % 90.1 H Immature Gran % (Auto) 0.5 H Nucleat RBC Rel Count 0.0 Eos # (Auto) 0.03 Immature Gran # (Auto) 0.09 H Absolute Lymphs (auto) 0.40 L Absolute Monos (auto) 1.33 H Absolute Nucleated RBC 0.00 Lymphocytes % 2.1 L Monocytes % 6.8 Eosinophils % 0.2 Basophils % 0.3 Absolute Granulocytes 17.52 H Basophils # 0.06 Sodium Potassium Chloride Carbon Dioxide Anion Gap BUN Creatinine Estimated GFR Glucose Lactic Acid 3.5 H Calcium Total Bilirubin AST ALT Alkaline Phosphatase Serum Total Protein Albumin Amylase Lipase Urinalys Dipstick Clnc Urine Color Urine Appearance Urine pH Ur Specific [place] POC Urine Protein Conf Urine Ketones Urine Nitrite Urine Bilirubin Urine Urobilinogen Urine Leukocytes Urine WBC (Auto) Urine RBC (Auto) U Epithel Cells (Auto) Urine Bacteria (Auto) Urine RBC Urine Mucus (Auto) Ur Culture Indicated? Urine Glucose Influenza Type A Ag NEGATIVE Influenza Type B Ag NEGATIVE RSV (PCR) NEGATIVE SARS-CoV-2 (PCR) NEGATIVE Slides for Path Review YES 05/11/22 05/11/22 05/11/22 22:31 20:38 20:36 WBC RBC Hgb Hct MCV MCH MCHC RDW Plt Count MPV Gran % Immature Gran % (Auto) Nucleat RBC Rel Count Eos # (Auto) Immature Gran # (Auto) Absolute Lymphs (auto) Absolute Monos (auto) Absolute Nucleated RBC Lymphocytes % Monocytes % Eosinophils % Basophils % Absolute Granulocytes Basophils # Sodium 140 Potassium 4.2 Chloride 103 Carbon Dioxide 25 Anion Gap 15.9 H BUN 21 H Creatinine 1.30 H Estimated GFR 57.0 Glucose 235 H Lactic Acid 3.1 H Calcium 9.2 Total Bilirubin 1.20 AST 37 ALT 30 Alkaline Phosphatase 96 Serum Total Protein 7.7 Albumin 4.6 Amylase 122 H Lipase 549 H Urinalys Dipstick Clnc MAIN LAB Urine Color YELLOW Urine Appearance CLEAR Urine pH 5.5 Ur Specific [place] 1.025 POC Urine Protein Conf NEGATIVE Urine Ketones SMALL-15 Urine Nitrite NEGATIVE Urine Bilirubin NEGATIVE Urine Urobilinogen 0.2 Urine Leukocytes NEGATIVE Urine WBC (Auto) 0-2 Urine RBC (Auto) 0-2 U Epithel Cells (Auto) RARE Urine Bacteria (Auto) Not Reportable Urine RBC NEGATIVE Urine Mucus (Auto) SLIGHT Ur Culture Indicated? NO Urine Glucose >=1000 Influenza Type A Ag Influenza Type B Ag RSV (PCR) SARS-CoV-2 (PCR) Slides for Path Review 05/11/22 20:36 WBC 14.0 H RBC 4.76 Hgb 13.0 Hct 42.6 MCV 89.5 MCH 27.3 MCHC 30.5 L RDW 14.0 Plt Count 303 MPV 11.9 H Gran % 84.0 H Immature Gran % (Auto) 0.5 H Nucleat RBC Rel Count 0.0 Eos # (Auto) 0.28 Immature Gran # (Auto) 0.07 H Absolute Lymphs (auto) 1.05 Absolute Monos (auto) 0.74 Absolute Nucleated RBC 0.00 Lymphocytes % 7.5 L Monocytes % 5.3 Eosinophils % 2.0 Basophils % 0.7 Absolute Granulocytes 11.72 H Basophils # 0.10 Sodium Potassium Chloride Carbon Dioxide Anion Gap BUN Creatinine Estimated GFR Glucose Lactic Acid Calcium Total Bilirubin AST ALT Alkaline Phosphatase Serum Total Protein Albumin Amylase Lipase Urinalys Dipstick Clnc Urine Color Urine Appearance Urine pH Ur Specific [place] POC Urine Protein Conf Urine Ketones Urine Nitrite Urine Bilirubin Urine Urobilinogen Urine Leukocytes Urine WBC (Auto) Urine RBC (Auto) U Epithel Cells (Auto) Urine Bacteria (Auto) Urine RBC Urine Mucus (Auto) Ur Culture Indicated? Urine Glucose Influenza Type A Ag Influenza Type B Ag RSV (PCR) SARS-CoV-2 (PCR) Slides for Path Review Orders (Last 24 hours) Category Date Time Status Bedrest TOLERATED Activity 05/11/22 23:31 Active Change admission status [Change to Full Admit] ROUTINE Care 05/12/22 04:30 Active IV Insertion STAT Care 05/11/22 20:32 Completed NGT [Gastric Tube Insertion] ROUTINE Care 05/12/22 14:[address] in Observation ROUTINE Care 05/11/22 23:31 Completed Weight,Daily 0600 Care 05/11/22 23:31 Active Consult Surgery ROUTINE Cons 05/12/22 14:26 Active Clear Liquid Diet 05/12/22 Breakfast Completed NPO Diet 05/12/22 09:05 Active ABDOMEN AND PELVIS W/0 CONTRAS [CT] Stat Exams 05/11/22 20:30 Completed CHEST 1 VIEW (PORTABLE) Urgent Exams 05/12/22 00:00 Completed AMYLASE Stat Lab 05/11/22 20:36 Completed AMYLASE Stat Lab 05/12/22 04:30 Completed BMP AM.LAB Lab 05/13/22 04:00 Ordered CBC AM.LAB Lab 05/13/22 04:00 Ordered CBC W DIFF AM.LAB Lab 05/12/22 04:30 Completed CBC W DIFF Stat Lab 05/11/22 20:36 Completed CMP AM.LAB Lab 05/12/22 04:30 Completed CMP Stat Lab 05/11/22 20:36 Completed LIPASE Stat Lab 05/11/22 20:36 Completed LIPASE Stat Lab 05/12/22 04:30 Completed Lactic Acid AM.LAB Lab 05/13/22 04:00 Ordered Lactic Acid Routine Lab 05/12/22 04:30 Completed Lactic Acid Stat Lab 05/11/22 20:38 Completed Lactic Acid Stat Lab 05/11/22 22:44 Completed UA W/RFX CULTURE Stat Lab 05/11/22 22:31 Completed Acetaminophen 325 mg [Tylenol 325 mg] Med 05/11/22 23:31 Active 650 mg PO Q4H PRN PRN Albuterol Common Canister [Ventolin Common Canister* Med 05/12/22 11:36 Active ] 2 puff IH QIDRT Albuterol Common Canister [Ventolin Common Canister* Med 05/12/22 07:00 Discontinued ] 4 puff IH QIDRT Amlodipine Besylate 5 mg [Norvasc 5 mg] Med 05/12/22 13:00 Active 2.5 mg PO DAILY Apixaban [Eliquis 2.5 mg Tablet] Med 05/12/22 13:00 Active 5 mg PO BID Cyanocobalamin 500 Mcg [Vitamin B-12 500 MCG] Med 05/12/22 13:00 Active 1,000 mcg PO DAILY Famotidine 20 mg [Pepcid 20 MG] Med 05/12/22 13:00 Active 20 mg PO DAILY Levofloxacin [Levofloxacin 500MG/100ML D5W] Med 05/12/22 14:00 Active 500 mg in 100 ml IV DAILY Losartan Potassium 50 mg [Cozaar 50 MG] Med 05/12/22 13:00 Active 50 mg PO DAILY Medication Intervention Med 05/12/22 13:00 Active 1 each MC .RN TO CHECK Medication Intervention Med 05/12/22 13:00 Active 1 each MC .RN TO CHECK Metformin HCl 500 mg [Glucophage 500 MG] Med 05/12/22 22:00 Active 500 mg PO HS Metoprolol Succinate 25 mg Xl* [Toprol-Xl 25MG Tablets* Med 05/12/22 13:00 Active ] 25 mg PO BID Metoprolol Succinate 50 mg [Toprol Xl 50 MG] Med 05/12/22 13:00 Active 50 mg PO BID Metronidazole 500 mg Premix [Flagyl 500 mg Ivpb] Med 05/12/22 00:00 Active 500 mg in 100 ml IV Q6HT Metronidazole 500 mg Premix [Flagyl 500 mg Ivpb] Med 05/11/22 22:16 Discontinued 500 mg in 100 ml IV STAT Metronidazole 500 mg Premix [Flagyl 500 mg Ivpb] Med 05/11/22 22:25 Discontinued 500 mg in 100 ml IV UD Morphine Sulfate 4 mg Inj Med 05/11/22 22:25 Discontinued 4 mg .ROUTE .STK-MED ONE Morphine Sulfate 4 mg Inj Med 05/11/22 23:31 Hold 4 mg IV Q6H PRN PRN Morphine Sulfate 4 mg Inj Med 05/11/22 22:12 Discontinued 4 mg IV STAT ONE Multivitamins,Therapeutic Tab* [Theragran Multivitamin* Med 05/12/22 13:00 Active ] 1 tab PO DAILY NaCl 0.45% 1000 ml [Sodium Chloride 0.45% 1000 ML] 1, Med 05/11/22 23:31 Discontinued 000 ml IV 100 mls/hr NaCl 0.45% 1000 ml [Sodium Chloride 0.45% 1000 ML] 1, Med 05/12/22 00:15 Discontinued 000 ml IV UD NaCl 0.9% 1000 ml [Sodium Chloride 0.9% 1000 ML] 1,000 Med 05/11/22 21:01 Discontinued ml .ROUTE UD NaCl 0.9% 1000 ml [Sodium Chloride 0.9% 1000 ML] 1,000 Med 05/11/22 23:03 Discontinued ml .ROUTE UD NaCl 0.9% 1000 ml [Sodium Chloride 0.9% 1000 ML] 1,000 Med 05/11/22 20:59 Discontinued ml IV 999 mls/hr NaCl 0.9% 1000 ml [Sodium Chloride 0.9% 1000 ML] 1,000 Med 05/11/22 23:02 Discontinued ml IV 999 mls/hr [place]-3 Fatty Acids/Fish Oil [Fish Oil 1,000 mg Med 05/12/22 13:00 Active Capsule] 4,000 mg PO BID Ondansetron HCl 4 mg/2 ml [Zofran 4 MG/2 ML VIAL] Med 05/11/22 22:24 Discontinued 4 mg .ROUTE .STK-MED ONE Ondansetron HCl 4 mg/2 ml [Zofran 4 MG/2 ML VIAL] [facility] 05/12/22 01:51 Discontinued 4 mg .ROUTE .STK-MED ONE Ondansetron HCl 4 mg/2 ml [Zofran 4 MG/2 ML VIAL] [facility] 05/12/22 05:25 Active 4 mg IV Q4H PRN PRN Ondansetron HCl 4 mg/2 ml [Zofran 4 MG/2 ML VIAL] Med 05/11/22 23:31 Discontinued 4 mg IV Q6H PRN PRN Ondansetron HCl 4 mg/2 ml [Zofran 4 MG/2 ML VIAL] Med 05/11/22 22:12 Discontinued 4 mg IV STAT ONE PANTOPRAZOLE 40 mg Tablet [Protonix 40MG Tablet] Med 05/12/22 13:00 Active 40 mg PO DAILY Pantoprazole 40 mg [Protonix 40 mg IV] Med 05/11/22 23:31 Discontinued 40 mg IV Q24H Pantoprazole 40 mg [Protonix 40 mg IV] Med 05/12/22 22:00 Discontinued 40 mg IV QPM Paroxetine HCl 20 mg [Paxil 20 MG] Med 05/12/22 13:00 Active 20 mg PO DAILY Promethazine HCl 25 mg Amp [Phenergan 25 MG INJ] Med 05/12/22 12:03 Active 25 mg NaCl 0.9% [Sodium Chloride 0.9%] 100 ml IV Q4H PRN Pyridoxine HCl 100 mg [Vitamin B-6 (Pyridoxine) 100 Med 05/12/22 13:00 Active MG] 100 mg PO DAILY Ringers Solution,Lactated [Lactated Ringers] 1,000 ml Med 05/12/22 05:30 Active IV 150 mls/hr Senna 8.6 mg [Senokot 8.6 mg] Med 05/12/22 12:29 Active 8.6 mg PO DAILY PRN PRN Simvastatin 20Mg [Zocor 20Mg] Med 05/12/22 22:00 Active 20 mg PO HS Tamsulosin HCl 0.4 mg [Flomax 0.4 MG] Med 05/12/22 22:00 Active 0.8 mg PO HS Vitamin E 400 Units [Vitamin E 400 UNIT SOFTGEL] Med 05/12/22 13:00 Active 400 u PO DAILY BiPap/CPAP ROUTINE RT 05/11/22 23:56 Completed BiPap/CPAP ROUTINE RT 05/12/22 00:29 Active Oxygen Nasal Cannula 2 lpm RT 05/12/22 11:24 Active Pulse Oximetry .spot check RT 05/11/22 23:52 Active Respiratory Therapy Assessment DAILY RT 05/11/22 23:52 Active Patient Care Notes (Last 24 hours) 05/12/22 16:15 Nursing Note by Shahid,Jayde REC. ORDER TO D/C CLEAR LIQUIDS STARTING TOMORROW AM AND NEW ORDER TO RECHECK LACTIC ACID WITH AM. Initialized on 05/12/22 16:15 - END OF NOTE 05/12/22 15:38 Nursing Note by Jayde Key NG TUBE PLACED IN RIGHT NARE. ATTEMPTED EACH NARE WITH 16F WITHOUT SUCCESS, 2ND ATTEMPT TO RIGHT NARE WITH 14F SUCCESSFUL. SET TO LOW INTERMITTENT SUCTION - 1950 CC OF DARK BROWN LIQUID IN CANISTER X 2. THIRD CANISTER IN PLACE AT THIS TIME. PT REPORTS THAT HE IS ALREADY FEELING SOME RELIEF. Initialized on 05/12/22 15:38 - END OF NOTE 05/12/22 14:25 Nursing Note by Jayde Key CALLED AND UPDATED DR. HAMMONDS THAT PT VOMITTED 450CC DARK BROWN THICK EMESIS AND THAT PT REPORTS IT TASTE LIKE BOWEL. REC. THE FOLLOWING ORDERS: NG TUBE AND SX CONSULT. Initialized on 05/12/22 14:25 - END OF NOTE 05/12/22 12:46 Nursing Note by Jayde Key PT TOOK 1 SIP OF JESSICA MIST AND THEN HAD 100CC DARK BROWN EMESIS MINUTES LATER. WILL CONTINUE NPO ORDERED. Initialized on 05/12/22 12:46 - END OF NOTE 05/12/22 12:02 Nursing Note by Jayde Key ROUNDED ON PT WITH DR. HAMMONDS: RECEIVED THE FOLLOWING ORDERS: ROCEPHIN 1 GM IV Q D, PHENERGAN IVPB IV Q6H PRN, CLEAR LIQUIDS STARTING TOMORROW AM, CBC AND BMP TOMORROW AM. Addendum entered by Jayde Key RN 05/12/22 12:07: CALLED DR. HAMMONDS TO NOTIFY OF ALLERGYS. RECEIVED ORDER FOR LEVAQUIN 500MG IV Q D RATHER THAN ROCEPHIN. AND CLARIFIED THAT PHENERGAN IVPB Q4H PRN. Initialized on 05/12/22 12:02 - END OF NOTE 05/12/22 10:50 (created 05/12/22 11:21) Nursing Note by Jayde Key 350CC OF DARK BROWN EMESIS AT THIS TIME Initialized on 05/12/22 11:21 - END OF NOTE 05/12/22 05:25 Nursing Note by Jose Enrique Maldonado notified of Lactic Acid 3.8 along with the bmp and cbc results Pt reports that Morphine might be making him sick. Hold on Morphin increase frequency of Zofran to every 4 hrs prn and change IV flds to LR at 150 ml/hr Initialized on 05/12/22 05:25 - END OF NOTE Code(s): K56.0 - PARALYTIC ILEUS (2) Abdominal pain Current Visit: Yes Status: Acute Qualifiers: Abdominal location: generalized Qualified Code(s): R10.84 - Generalized abdominal pain Code(s): R10.9 - UNSPECIFIED ABDOMINAL PAIN (3) Gastroenteritis Current Visit: Yes Status: Acute Code(s): K52.9 - NONINFECTIVE GASTROENTERITIS AND COLITIS, UNSPECIFIED
[2022-05-12] MEDS: Flomax 0.4 MG PO SCH (21:25)
[2022-05-12] MEDS: ZOCOR 20MG PO SCH (21:26)
[2022-05-12] MEDS: Ambien 5 MG Tablet PO PRN (21:27)
[2022-05-12] MEDS: ENOXAPARIN SODIUM SQ SCH (21:40)
[2022-05-12] MEDS ORDERED: NON-FORMULARY ITEM (Apixaban [Eliquis] 5 MG Tablet) PO SCH (22:00)
[2022-05-12] MEDS ORDERED: Glucophage 500 MG PO SCH (22:00)
[2022-05-12] MEDS ORDERED: NABUMETONE 500 MG PO SCH (22:00)
[2022-05-12] MEDS ORDERED: NON-FORMULARY ITEM (Rosuvastatin Calcium [Rosuvastatin Calcium] 10 MG Tablet) PO SCH (22:00)
[2022-05-12] MEDS ORDERED: PROTONIX 40 MG IV IV SCH (22:00)
[2022-05-13] MEDS: Lactated Ringers 1,000 ML IV SCH (00:13)
[2022-05-13] MEDS: FLAGYL 500 MG IVPB 500 MG/100 ML BAG IV SCH ×5 (00:14→23:34)
[2022-05-13 05:07] LABS: Hematocrit 39.5 % (42-50); Hemoglobin 11.8 g/dL (12.5-18.0); Mean Cell Volume 90.4 fL (78-100); Mean Corpuscular Hgb Concent. 29.9 g/dL (32-36); Mean Platelet Volume 11.9 fL (7.5-11.0); Platelet Count 295 x10^3/uL (150-450); Red Blood Count 4.37 x10^6/uL (4.1-5.6); Red Cell Distribution Width 14.3 % (11.5-14.0); White Blood Count 9.1 x10^3/uL (4.0-10.5)
[2022-05-13 05:43] LABS: ANION GAP 15.2 MEQ/L (5-15); Calcium 8.8 mg/dL (8.4-10.2); Creatinine 1 1.53 mg/dL (0.66-1.25); EST GLOMERULAR FILTRATION RATE 47.1 ML/MIN; Potassium 4.2 mmol/L (3.5-5.1)
[2022-05-13] MEDS ORDERED: Lactated Ringers 1,000 ML IV SCH (06:38)
[2022-05-13] MEDS: VENTOLIN COMMON CANISTER IH SCH (07:10)
--- NOTE | 2022-05-13 08:02 | CONS ---
CONSULT DATE: 05/12/2022 HISTORY: Dr. Connell asked that I consult this patient for question of ileus. The patient is a 76-year-old had some nausea and vomiting started yesterday evening. He came in and had a CT scan with no free air, collection, had some fluid in the small bowel. The radiologist read it as question of ileus or enteritis. His amylase and lipase are okay. Total bilirubin 1.6. AST and ALT are okay. White count was 19.4, hemoglobin 12.8, PLT count 312,000. He denies any bloody stools. PAST MEDICAL HISTORY: Diabetes mellitus type II. Obesity. Heart disease. He has history of atrial fibrillation. He has been on Eliquis. Peripheral neuropathy. History of blood clot in the past. He has had pulmonary embolism in the past. Sleep apnea. Depression. Prostate problems in the past. PAST SURGICAL HISTORY: Cholecystectomy. He has a pacemaker defibrillator in the past. He had orthopedic surgery. Dental extractions. Left knee tear in tendon and repair in the past. His only abdominal surgery was laparoscopic cholecystectomy. He has history of heart ablation in the past. He did have a colonoscopy a year or two ago that was okay according to the patient. FAMILY HISTORY: Negative in regards to this specific problem. SOCIAL HISTORY: Former smoker. No alcohol abuse. REVIEW OF SYSTEMS: Fourteen systems reviewed. No chest pain or palpitations other systems negative or noncontributory as above and per preadmission questionnaire. PHYSICAL EXAMINATION: GENERAL: No acute distress. HEENT: Sclera nonicteric. NECK: No JVD. CHEST: Equal excursion, nonlabored breathing. CVS: Regular rate and rhythm. ABDOMEN: Soft. He is obese. He had some mild distention but no peritoneal signs. EXTREMITIES: No cyanosis. NEURO: Alert. PSYCH: Appropriate mood and affect. IMPRESSION: A 76-year-old with some nausea and vomiting. He had a CT scan show some fluid in the small bowel loops and stomach, question ileus versus enteritis. No free air. No collections. He did have some vague left aches in the past. Other etiology could include some early mild diverticular disease or other etiology. Either way no emergent surgery necessary. Radiologist seemed to think this is more of an ileus than enteritis. Continue IV antibiotics and Flagyl, continue bowel rest and NG decompression, frequent turning, twisting and walking in the halls. I will follow with you. No emergent surgery necessary. We are tied up in [place] most of the day tomorrow. I will call and check on him to see if he needs to be re-evaluated. If he fails to improve I will see him on . Otherwise, no emergent surgery needed, continue medical management, bowel rest at this time.
[2022-05-13] MEDS ORDERED: DUONEB 0.5-3 MG/3 ml Neb IH ONE (08:13)
[2022-05-13] MEDS: DUONEB 0.5-3 MG/3 ml Neb IH SCH ×5 (08:17→22:29)
[2022-05-13] MEDS ORDERED: solu-MEDROL IV SCH (08:30)
--- NOTE | 2022-05-13 08:39 | XRAY ---
Indication: NG tube advancement. Comparison: Taken earlier in the day. Limited portable chest demonstrates NG tube advancement with the tip now at the GE junction. Recommend advancement at least 10 cm. Remaining visualized heart and lungs unremarkable again with left pacemaker.
--- NOTE | 2022-05-13 08:41 | XRAY ---
Indication: NG tube adjustment. Comparison: One day earlier. Portable chest demonstrates NG tube now folded in the distal esophagus with tip directed superiorly at the level of T2. Lungs less inflated with new minimal bibasilar infiltrates/atelectasis. Heart not enlarged again with left pacemaker. Comment: Preliminary interpretation made by [facility]. No critical discrepancy.
[2022-05-13] MEDS: solu-MEDROL 40 MG, Sterile H2O 10 ml 1 ML IV SCH ×6 (08:57→21:38)
[2022-05-13] MEDS: Sodium Chloride 0.9% 1000 ML 1,000 ML IV SCH ×3 (08:57→23:36)
--- NOTE | 2022-05-13 09:50 | XRAY ---
Indication: NG tube placement. Comparison: Taken earlier in the day. Portable chest demonstrates NG tube tip now in gastric lumen directed towards the left. Lungs remain slightly underinflated with minimal bibasilar infiltrates/atelectasis. Heart not enlarged again with pacemaker. No new cardiopulmonary abnormalities.
[2022-05-13] MEDS ORDERED: NON-FORMULARY ITEM (Omeprazole [Omeprazole] 40 MG Capsule.Dr) PO SCH (10:00)
[2022-05-13] MEDS ORDERED: NON-FORMULARY ITEM (Ubidecarenone [Co Q-10] 200 MG Capsule) PO SCH (10:00)
[2022-05-13] MEDS ORDERED: NON-FORMULARY ITEM (Multivitamin [Multi-Vitamin Daily] 1 EACH Tablet) PO SCH (10:00)
[2022-05-13] MEDS ORDERED: NON-FORMULARY ITEM (Losartan Potassium [Losartan Potassium] 100 MG Tablet) PO SCH (10:00)
[2022-05-13] MEDS ORDERED: NON-FORMULARY ITEM (Cyanocobalamin (Vitamin B-12) [Vitamin B12] 2,500 MCG Tablet) PO SCH (10:00)
[2022-05-13] MEDS ORDERED: NON-FORMULARY ITEM (Amlodipine Besylate [Norvasc] 2.5 MG Tablet) PO SCH (10:00)
[2022-05-13] MEDS: Levofloxacin 500MG/100ML D5W 500 MG/100 ML BAG IV SCH (10:08)
[2022-05-13] MEDS: Toprol Xl 50 MG PO SCH ×2 (10:59→21:38)
[2022-05-13] MEDS: Protonix 40MG Tablet PO SCH (10:59)
[2022-05-13] MEDS: Toprol-Xl 25MG Tablets PO SCH ×2 (10:59→21:37)
[2022-05-13] MEDS: NORVASC 5 MG PO SCH (11:00)
[2022-05-13] MEDS: Cozaar 50 MG PO SCH (11:00)
[2022-05-13] MEDS: FISH OIL 1,000 MG CAPSULE PO SCH ×2 (11:00→21:37)
[2022-05-13] MEDS: Vitamin B-12 500 MCG PO SCH (11:00)
[2022-05-13] MEDS: Pepcid 20 MG PO SCH (11:00)
[2022-05-13] MEDS: THERAGRAN MULTIVITAMIN PO SCH (11:00)
[2022-05-13] MEDS: Paxil 20 MG PO SCH (11:00)
[2022-05-13] MEDS: Vitamin B-6 (Pyridoxine) 100 MG PO SCH (11:01)
[2022-05-13] MEDS: Vitamin E 400 UNIT SOFTGEL PO SCH (11:01)
[2022-05-13] MEDS: HUMALOG SQ PRN ×2 (11:43→16:33)
--- NOTE | 2022-05-13 19:51 | PCM.NOTE ---
Date and Time: 05/13/221948 Subjective Assessment: c/o abdominal distension and shortness of breath - Review of Systems Constitutional: No Fever, No Chills Eyes: No Symptoms Ears, Nose, & Throat: No Symptoms Respiratory: No Cough, No Short Of Breath Cardiac: No Chest Pain, No Edema, No Syncope Abdominal/Gastrointestinal: Abdominal Pain, Nausea, Vomiting, Other (abdominal distension), No Diarrhea Genitourinary Symptoms: No Dysuria Musculoskeletal: No Back Pain, No Neck Pain Skin: No Rash Neurological: No Dizziness, No Focal Weakness, No Sensory Changes Psychological: No Symptoms Endocrine: No Symptoms Hematologic/Lymphatic: No Symptoms Immunological/Allergic: No Symptoms Objective Exam General Appearance: no apparent distress, alert Neurologic Exam: alert, oriented x 3, cooperative, normal mood/affect, nml cerebellar function, sensation nml, No motor deficits Skin Exam: normal color, warm, dry Eye Exam: PERRL, EOMI, eyes nml inspection Ears, Nose, Throat Exam: normal ENT inspection, pharynx normal, moist mucous membranes Neck Exam: normal inspection, non-tender, supple, full range of motion Respiratory Exam: normal breath sounds, lungs clear, No respiratory distress Cardiovascular Exam: regular rate/rhythm, normal heart sounds Gastrointestinal/Abdomen Exam: tenderness, distention, No normal bowel sounds, No mass Extremity Exam: normal inspection, normal range of motion Back Exam: normal inspection, normal range of motion, No CVA tenderness, No vertebral tenderness Male Genitalia Exam: deferred Rectal Exam: deferred OBJECTIVE DATA Vital Signs: Vital Signs - 24 hr Temp Pulse Resp BP Pulse Ox 05/13/22 19:29 85 16 92 L 05/13/22 15:36 96.9 F 88 14 152/68 95 05/13/22 14:49 86 22 94 L 05/13/22 12:00 96.9 F 86 16 171/82 94 L 05/13/22 11:19 86 24 94 L 05/13/22 08:18 88 22 91 L 05/13/22 07:52 96.9 F 96 H 18 183/88 93 L 05/13/22 07:15 86 22 90 L 05/13/22 04:24 164/78 05/13/22 04:00 97.5 F 85 20 187/81 94 L 05/13/22 00:00 96.4 F 93 H 21 142/80 92 L 05/12/22 19:59 96.6 F 95 H 18 164/77 96 Pain Assessment - Last Documented Pain Intensity 0 Pain Scale Used 0-10 Pain Scale Intake and Output: Intake & Output 05/11/22 05/12/22 05/13/22 05/14/22 11:59 11:59 11:59 11:59 Intake Total 540 3084 Output Total 2099 4477 0520 [facility] -[phone] Weight 146.1 kg 141.9 kg Lab Results: Lab Results-Last 24 Hours 05/13/22 05/13/22 05/13/22 Range/Units 05:14 05:14 05:14 WBC 9.1 (4.0-10.5) x10^3/uL RBC 4.37 (4.1-5.6) x10^6/uL Hgb 11.8 L (12.5-18.0) g/dL Hct 39.5 L (42-50) % MCV 90.4 (78-100) fL MCH 27.0 (26-32) pg MCHC 29.9 L (32-36) g/dL RDW 14.3 H (11.5-14.0) % Plt Count 295 (150-450) x10^3/uL MPV 11.9 H (7.5-11.0) fL Sodium 139 (137-145) mmol/L Potassium 4.2 (3.5-5.1) mmol/L Chloride 103 (98-107) mmol/L Carbon Dioxide 25 (22-30) mmol/L Anion Gap 15.2 H (5-15) MEQ/L BUN 35 H (9-20) mg/dL Creatinine 1.53 H (0.66-1.25) mg/dL Estimated GFR 47.1 ML/MIN Glucose 266 H (74-106) mg/dL POC Glucometer (74 to 106) mg/dL Hemoglobin A1c (4.5-6.0) % Lactic Acid 2.3 H (0.4-2.0) Calcium 8.8 (8.4-10.2) mg/dL 05/13/22 05/13/22 05/13/22 Range/Units 07:37 07:53 11:22 WBC (4.0-10.5) x10^3/uL RBC (4.1-5.6) x10^6/uL Hgb (12.5-18.0) g/dL Hct (42-50) % MCV (78-100) fL MCH (26-32) pg MCHC (32-36) g/dL RDW (11.5-14.0) % Plt Count (150-450) x10^3/uL MPV (7.5-11.0) fL Sodium (137-145) mmol/L Potassium (3.5-5.1) mmol/L Chloride (98-107) mmol/L Carbon Dioxide (22-30) mmol/L Anion Gap (5-15) MEQ/L BUN (9-20) mg/dL Creatinine (0.66-1.25) mg/dL Estimated GFR ML/MIN Glucose (74-106) mg/dL POC Glucometer 248 H 266 H (74 to 106) mg/dL Hemoglobin A1c 8.16 H (4.5-6.0) % Lactic Acid (0.4-2.0) Calcium (8.4-10.2) mg/dL 05/13/22 Range/Units 16:30 WBC (4.0-10.5) x10^3/uL RBC (4.1-5.6) x10^6/uL Hgb (12.5-18.0) g/dL Hct (42-50) % MCV (78-100) fL MCH (26-32) pg MCHC (32-36) g/dL RDW (11.5-14.0) % Plt Count (150-450) x10^3/uL MPV (7.5-11.0) fL Sodium (137-145) mmol/L Potassium (3.5-5.1) mmol/L Chloride (98-107) mmol/L Carbon Dioxide (22-30) mmol/L Anion Gap (5-15) MEQ/L BUN (9-20) mg/dL Creatinine (0.66-1.25) mg/dL Estimated GFR ML/MIN Glucose (74-106) mg/dL POC Glucometer 249 H (74 to 106) mg/dL Hemoglobin A1c (4.5-6.0) % Lactic Acid (0.4-2.0) Calcium (8.4-10.2) mg/dL Radiology Exams: Radiology Procedures Category Date Time Status ABDOMEN AND PELVIS W/0 CONTRAS [CT] Stat Exams 05/11/22 20:30 Completed CHEST 1 VIEW (PORTABLE) Stat Exams 05/13/22 00:04 Completed CHEST 1 VIEW (PORTABLE) Stat Exams 05/13/22 09:06 Completed CHEST 1 VIEW (PORTABLE) Urgent Exams 05/12/22 00:00 Completed CHEST 1 VIEW (PORTABLE) Urgent Exams 05/12/22 17:52 Completed Multi-Disciplinary Progress Notes: Multi-Disciplinary Progress Notes 05/13/22 11:18 Case Management Note by Montse Small REVIEWED CHART- PATIENT STILL ACUTELY ILL. DO NOT ANTICIPATE ANY CHANGES IN DC PLAN AT THIS TIME Initialized on 05/13/22 11:18 - END OF NOTE 05/13/22 08:23 Respiratory Note by Adelita Lovelace Patient still complaining of shortness of breath and audible and auscultated I/E wheezes. Will order Duoneb via nebulizer Q4 and cancel Albuterol MDI order. Dr. Hammonds made aware per MARTINA Iyer. Initialized on 05/13/22 08:23 - END OF NOTE Assessment/Plan (1) Paralytic ileus Current Visit: Yes Status: Acute Assessment & Plan: Chief Complaint Diagnosis abdominal pain, nausea and vomiting for 1 day Allergies Allergy/AdvReac Type Severity Reaction Status Date / Time Sulfa (Sulfonamide Allergy Severe Verified 05/11/22 19:49 Antibiotics) codeine Allergy Intermediate Nausea and Verified 05/11/22 19:49 Vomiting cephalexin [From Keflex] Allergy Unknown Verified 05/11/22 19:49 Vital Signs (Last 24 hours) Temp Pulse Resp BP Pulse Ox 05/13/22 19:29 85 16 92 L 05/13/22 15:36 96.9 F 88 14 152/68 95 05/13/22 14:49 86 22 94 L 05/13/22 12:00 96.9 F 86 16 171/82 94 L 05/13/22 11:19 86 24 94 L 05/13/22 08:18 88 22 91 L 05/13/22 07:52 96.9 F 96 H 18 183/88 93 L 05/13/22 07:15 86 22 90 L 05/13/22 04:24 164/78 05/13/22 04:00 97.5 F 85 20 187/81 94 L 05/13/22 00:00 96.4 F 93 H 21 142/80 92 L 05/12/22 19:59 96.6 F 95 H 18 164/77 96 Home Medications Medication Instructions Recorded Confirmed Last Taken Type Albuterol Sulfate [Proair Hfa] 8.5 gm IH Q4-6HPRN PRN 05/11/22 05/11/22 Unknown History Amlodipine Besylate [Norvasc] 2.5 mg PO DAILY 05/11/22 05/11/22 05/11/22 09:00 History Warren-3/Dha/Epa/Fish Oil [Fish Oil 4,000 mg PO BID 05/11/22 05/11/22 05/11/22 18:00 History 1,000 mg Softgel] Current Medications Generic Name Dose Route Start Last Admin Trade Name Freq PRN Reason Stop Dose Admin Acetaminophen 650 mg 05/11/22 23:31 05/12/22 21:28 Acetaminophen 325 Mg Tablet PO 06/10/22 23:30 650 mg Q4H PRN PRN Administration PAIN, FEVER, HEADACHE Albuterol/Ipratropium 3 ml 05/13/22 07:00 05/13/22 19:28 Ipratropium/Albuterol Sulfate 3 Ml Ampul.Neb IH 06/12/22 06:59 3 ml Q4HRT DAHLIA Administration Amlodipine Besylate 2.5 mg 05/12/22 13:00 05/13/22 11:00 Amlodipine Besylate 5 Mg Tablet PO 06/11/22 12:59 2.5 mg DAILY DAHLIA Administration Methylprednisolone Sodium 0 mg 05/13/22 08:30 05/13/22 15:02 Succinate 40 mg/ Sterile Water IV 06/12/22 08:29 40 mg 1 ml Q8HT DAHLIA Administration Cyanocobalamin 1,000 mcg 05/12/22 13:00 05/13/22 11:00 Cyanocobalamin 500 Mcg Tablet PO 06/11/22 12:59 1,000 mcg DAILY DAHLIA Administration Enoxaparin Sodium 40 mg 05/12/22 22:00 05/12/22 21:40 Enoxaparin Sodium 40 Mg/0.4 Ml Syringe SQ 06/11/22 21:59 40 mg HS DAHLIA Administration Famotidine 20 mg 05/12/22 13:00 05/13/22 11:00 Famotidine 20 Mg Tablet PO 06/11/22 12:59 20 mg DAILY DAHLIA Administration Fish Oil 4,000 mg 05/12/22 13:00 05/13/22 11:00 Warren-3 Fatty Acids/Fish Oil 1000 Mg Capsule PO 06/11/22 12:59 4,000 mg BID DAHLIA Administration Metronidazole 500 mg in 100 mls @ 200 mls/hr 05/12/22 00:00 05/13/22 18:43 Flagyl 500 Mg Ivpb IV 06/11/22 00:00 200 mls/hr Q6HT DAHLIA Administration Promethazine HCl 25 mg/ Sodium 101 mls @ 200 mls/hr 05/12/22 12:03 05/12/22 12:41 Chloride IV 06/11/22 12:02 200 mls/hr Q4H PRN PRN Administration UNCONTROLLED NAUSEA Levofloxacin/Dextrose 500 mg in 100 mls @ 100 mls/hr 05/12/22 14:00 05/13/22 10:08 Levofloxacin 500mg/100ml D5w IV 06/11/22 13:59 100 mls/hr DAILY DAHLIA Administration Sodium Chloride 1,000 mls @ 150 mls/hr 05/13/22 08:15 05/13/22 16:38 Sodium Chloride 0.9% 1000 Ml IV 06/12/22 08:14 150 mls/hr .Q6H40M DAHLIA Administration Insulin Human Lispro 0 unit 05/13/22 07:00 05/13/22 16:33 Insulin Lispro 1 Unit SQ 06/12/22 06:59 2 unit UD PRN Administration HYPERGLYCEMIA Losartan Potassium 50 mg 05/12/22 13:00 05/13/22 11:00 Losartan Potassium 50 Mg Tablet PO 06/11/22 12:59 50 mg DAILY DAHLIA Administration Metoprolol Succinate 50 mg 05/12/22 13:00 05/13/22 10:59 Metoprolol Succinate 50 Mg Tablet.Sa PO 06/11/22 12:59 50 mg BID DAHLIA Administration Metoprolol Succinate 25 mg 05/12/22 13:00 05/13/22 10:59 Metoprolol Succinate 25 Mg Xl Tab PO 06/11/22 12:59 25 mg BID DAHLIA Administration Miscellaneous Information 1 each 05/12/22 13:00 Medication Intervention 1 Each Each 06/11/22 12:59 .RN TO CHECK DAHLIA Miscellaneous Information 1 each 05/12/22 13:00 Medication Intervention 1 Each Each 06/11/22 12:59 .RN TO CHECK DAHLIA Morphine Sulfate 4 mg 05/11/22 23:31 05/12/22 01:55 Morphine Sulfate 4 Mg/Ml Injection IV 05/16/22 23:30 4 mg Q6H PRN PRN Administration PAIN Multivitamins Therapeutic 1 tab 05/12/22 13:00 05/13/22 11:00 Multivitamins,Therapeutic 1 Tab Tab PO 06/11/22 12:59 1 tab DAILY DAHLIA Administration Ondansetron HCl 4 mg 05/12/22 05:25 05/12/22 09:30 Ondansetron Hcl 4 Mg/2 Ml Vial IV 06/11/22 05:22 4 mg Q4H PRN PRN Administration NAUSEA/VOMITING Pantoprazole Sodium 40 mg 05/12/22 13:00 05/13/22 10:59 Protonix (Pantoprazole) 40 Mg Tablet PO 06/11/22 12:59 40 mg DAILY DAHLIA Administration Paroxetine HCl 20 mg 05/12/22 13:00 05/13/22 11:00 Paroxetine Hcl 20 Mg Tablet PO 06/11/22 12:59 20 mg DAILY DAHLIA Administration Pyridoxine HCl 100 mg 05/12/22 13:00 05/13/22 11:01 Pyridoxine Hcl 100 Mg Tablet PO 06/11/22 12:59 100 mg DAILY DAHLIA Administration Senna 8.6 mg 05/12/22 12:29 05/12/22 21:26 Senna 8.6 Mg Tablet PO 06/11/22 12:28 8.6 mg DAILY PRN PRN Administration CONSTIPATION Simvastatin 20 mg 05/12/22 22:00 05/12/22 21:26 Simvastatin 20 Mg Tablet PO 06/11/22 21:59 20 mg HS DAHLIA Administration Tamsulosin HCl 0.8 mg 05/12/22 22:00 05/12/22 21:25 Tamsulosin Hcl 0.4 Mg Cap PO 06/11/22 21:59 0.8 mg HS DAHLIA Administration Vitamin E 400 u 05/12/22 13:00 05/13/22 11:01 Vitamin E 400 Iu Softgel PO 06/11/22 12:59 400 u DAILY DAHLIA Administration Zolpidem Tartrate 5 mg 05/12/22 20:44 05/12/22 21:27 Zolpidem Tartrate 5 Mg Tab PO 06/11/22 20:43 5 mg HS PRN PRN Administration INSOMNIA Discontinued Medications Generic Name Dose Route Start Last Admin Trade Name Freq PRN Reason Stop Dose Admin Albuterol Sulfate 4 puff 05/12/22 07:00 05/12/22 11:11 Albuterol Common Canister Inhaler IH 06/11/22 06:59 4 puff QIDRT DAHLIA Administration Albuterol Sulfate 2 puff 05/12/22 11:36 05/13/22 07:10 Albuterol Common Canister Inhaler IH 06/11/22 06:59 2 puff QIDRT DAHLIA Administration Albuterol/Ipratropium Confirm 05/13/22 08:13 Ipratropium/Albuterol Sulfate 3 Ml Ampul.Neb Administered 05/13/22 08:14 Dose 3 ml IH .STK-MED ONE Apixaban 5 mg 05/12/22 13:00 05/12/22 13:41 Apixaban 2.5 Mg Tablet PO 06/11/22 12:59 Not Given BID DAHLIA Sodium Chloride 1,000 mls @ 999 mls/hr 05/11/22 20:59 05/11/22 21:02 Sodium Chloride 0.9% 1000 Ml IV 05/11/22 21:59 999 mls/hr .Q1H1M STA Administration Sodium Chloride Confirm 05/11/22 21:01 Sodium Chloride 0.9% 1000 Ml Administered 05/11/22 21:02 Dose 1,000 mls @ ud .ROUTE .STK-MED ONE Metronidazole 500 mg in 100 mls @ 200 mls/hr 05/11/22 22:16 05/11/22 22:35 Flagyl 500 Mg Ivpb IV 05/11/22 22:45 200 ml/hr STAT STA 200 mls/hr Administration Metronidazole Confirm 05/11/22 22:25 Flagyl 500 Mg Ivpb Administered 05/11/22 22:26 Dose 500 mg in 100 mls @ ud IV .STK-MED ONE Sodium Chloride 1,000 mls @ 999 mls/hr 05/11/22 23:02 05/11/22 23:04 Sodium Chloride 0.9% 1000 Ml IV 05/12/22 00:02 999 mls/hr .Q1H1M STA Administration Sodium Chloride Confirm 05/11/22 23:03 Sodium Chloride 0.9% 1000 Ml Administered 05/11/22 23:04 Dose 1,000 mls @ ud .ROUTE .STK-MED ONE Sodium Chloride 1,000 mls @ 100 mls/hr 05/11/22 23:31 05/12/22 00:16 Sodium Chloride 0.45% 1000 Ml IV 06/10/22 23:30 100 mls/hr .Q10H DAHLIA Administration Lactated Ringer's 1,000 mls @ 150 mls/hr 05/12/22 05:30 05/13/22 06:33 Lactated Ringers IV 06/11/22 05:29 100 mls/hr .Q6H40M DAHLIA Infusion Sodium Chloride Confirm 05/12/22 00:15 Sodium Chloride 0.45% 1000 Ml Administered 05/12/22 00:16 Dose 1,000 mls @ ud IV .STK-MED ONE Lactated Ringer's 1,000 mls @ 100 mls/hr 05/13/22 06:38 05/13/22 10:30 Lactated Ringers IV 06/12/22 06:29 Not Given .Q10H DAHLIA Metformin HCl 500 mg 05/12/22 22:00 05/12/22 21:28 Metformin Hcl 500 Mg Tablet PO 06/11/22 21:59 500 mg HS DAHLIA Administration Morphine Sulfate 4 mg 05/11/22 22:12 05/11/22 22:31 Morphine Sulfate 4 Mg/Ml Injection IV 05/11/22 22:13 4 mg STAT ONE Administration Morphine Sulfate Confirm 05/11/22 22:25 Morphine Sulfate 4 Mg/Ml Injection Administered 05/11/22 22:26 Dose 4 mg .ROUTE .STK-MED ONE Ondansetron HCl 4 mg 05/11/22 22:12 05/11/22 22:32 Ondansetron Hcl 4 Mg/2 Ml Vial IV 05/11/22 22:13 4 mg STAT ONE Administration Ondansetron HCl Confirm 05/11/22 22:24 Ondansetron Hcl 4 Mg/2 Ml Vial Administered 05/11/22 22:25 Dose 4 mg .ROUTE .STK-MED ONE Ondansetron HCl 4 mg 05/11/22 23:31 05/12/22 01:53 Ondansetron Hcl 4 Mg/2 Ml Vial IV 06/10/22 23:30 4 mg Q6H PRN PRN Administration NAUSEA/VOMITING Ondansetron HCl Confirm 05/12/22 01:51 Ondansetron Hcl 4 Mg/2 Ml Vial Administered 05/12/22 01:52 Dose 4 mg .ROUTE .STK-MED ONE Pantoprazole Sodium 40 mg 05/11/22 23:31 05/12/22 00:27 Pantoprazole 40 Mg Vial IV 06/10/22 23:30 40 mg Q24H DAHLIA Administration Pantoprazole Sodium 40 mg 05/12/22 22:00 Pantoprazole 40 Mg Vial IV 06/10/22 23:30 QPM DAHLIA Intake & Output (Last 24 hours) 05/11/22 05/12/22 05/13/22 05/14/22 11:59 11:59 11:59 11:59 Intake Total 540 3084 Output Total 1256 2917 2175 [facility] -[phone] Weight 146.1 kg 141.9 kg Laboratory Results (Last 24 hours) 05/13/22 05/13/22 05/13/22 16:30 11:22 07:53 WBC RBC Hgb Hct MCV MCH MCHC RDW Plt Count MPV Sodium Potassium Chloride Carbon Dioxide Anion Gap BUN Creatinine Estimated GFR Glucose POC Glucometer 249 H 266 H Hemoglobin A1c 8.16 H Lactic Acid Calcium 05/13/22 05/13/22 05/13/22 07:37 05:14 05:14 WBC RBC Hgb Hct MCV MCH MCHC RDW Plt Count MPV Sodium 139 Potassium 4.2 Chloride 103 Carbon Dioxide 25 Anion Gap 15.2 H BUN 35 H Creatinine 1.53 H Estimated GFR 47.1 Glucose 266 H POC Glucometer 248 H Hemoglobin A1c Lactic Acid 2.3 H Calcium 8.8 05/13/22 05:14 WBC 9.1 RBC 4.37 Hgb 11.8 L Hct 39.5 L MCV 90.4 MCH 27.0 MCHC 29.9 L RDW 14.3 H Plt Count 295 MPV 11.9 H Sodium Potassium Chloride Carbon Dioxide Anion Gap BUN Creatinine Estimated GFR Glucose POC Glucometer Hemoglobin A1c Lactic Acid Calcium Orders (Last 24 hours) Category Date Time Status Ice Chips Only TOLERATED Care 05/13/22 13:03 Active Miscellaneous Nursing Order ROUTINE Care 05/12/22 22:25 Active POCT Glucose Check ACHS Care 05/13/22 04:12 Active CHEST 1 VIEW (PORTABLE) Stat Exams 05/13/22 00:04 Completed CHEST 1 VIEW (PORTABLE) Stat Exams 05/13/22 09:06 Completed BMP AM.LAB Lab 05/13/22 05:14 Completed CBC AM.LAB Lab 05/13/22 05:14 Completed HEMOGLOBIN A1C Urgent Lab 05/13/22 07:53 Completed Lactic Acid AM.LAB Lab 05/13/22 05:14 Completed POCT GLUCOSE Stat Lab 05/13/22 07:37 Completed POCT GLUCOSE Stat Lab 05/13/22 11:22 Completed POCT GLUCOSE Stat Lab 05/13/22 16:30 Completed Albuterol/Ipratropium 3ml Neb* [DUONEB 0.5-3 MG/3 ml Med 05/13/22 08:13 Discontinued Neb] 3 ml IH .STK-MED ONE Albuterol/Ipratropium 3ml Neb* [DUONEB 0.5-3 MG/3 ml Med 05/13/22 07:00 Active Neb] 3 ml IH Q4HRT Enoxaparin Sodium [Enoxaparin Sodium] Med 05/12/22 22:00 Active 40 mg SQ HS Insulin Lispro [Humalog] Med 05/13/22 07:00 Active See Dose Instructions SQ UD PRN Metformin HCl 500 mg [Glucophage 500 MG] Med 05/12/22 22:00 Discontinued 500 mg PO HS Methylprednisolone Sod Suc 40M [solu-MEDROL] 40 mg Med 05/13/22 08:30 Active Water For Injection,Sterile [Sterile H2O 10 ml] 1 ml IV Q8HT NaCl 0.9% 1000 ml [Sodium Chloride 0.9% 1000 ML] 1,000 Med 05/13/22 08:15 Active ml IV 150 mls/hr Pantoprazole 40 mg [Protonix 40 mg IV] Med 05/12/22 22:00 Discontinued 40 mg IV QPM Ringers Solution,Lactated [Lactated Ringers] 1,000 ml Med 05/13/22 06:38 Discontinued IV 100 mls/hr Simvastatin 20Mg [Zocor 20Mg] Med 05/12/22 22:00 Active 20 mg PO HS Tamsulosin HCl 0.4 mg [Flomax 0.4 MG] Med 05/12/22 22:00 Active 0.8 mg PO HS Zolpidem Tartrate 5 mg [Ambien 5 MG Tablet] Med 05/12/22 20:44 Active 5 mg PO HS PRN PRN Patient Care Notes (Last 24 hours) 05/13/22 11:18 Case Management Note by Montse Small REVIEWED CHART- PATIENT STILL ACUTELY ILL. DO NOT ANTICIPATE ANY CHANGES IN DC PLAN AT THIS TIME Initialized on 05/13/22 11:18 - END OF NOTE 05/13/22 08:23 Respiratory Note by Adelita Lovelace Patient still complaining of shortness of breath and audible and auscultated I/E wheezes. Will order Duoneb via nebulizer Q4 and cancel Albuterol MDI order. Dr. Hammonds made aware per MARTINA Iyer. Initialized on 05/13/22 08:23 - END OF NOTE 05/13/22 07:09 Nursing Note by Bailey Alexander REPORT AND PT CARE GIVEN OVER TO NESSA MACK Initialized on 05/13/22 07:09 - END OF NOTE 05/13/22 06:15 (created 05/13/22 06:41) Nursing Note by Bailey Alexander @0615 DR. HAMMONDS WAS CALLED AND UPDATED ON PT NG BEING REMOVED @0200 D/T PT REFUSAL OF REPLACEMENT, PT DOING WELL AT THIS TIME, NO N/V AND NO FURTHER ABD DISTENTION. PT STATES, "I FEEL GOOD RIGHT NOW". MD ALSO UPDATED ON VITALS, ALLERGIES, DIET, NO ACCU CHECKS IN PLACE, LAB RESULTS AND LR RUNNING AT 150ML/HR. NO NEW ORDERS RECEIVED CONCERNING NG TUBE. DR. HAMMONDS GAVE NEW ORDERS FOR: "MAY DECREASE LR TO 100ML/HR IV", "HOLD GLUCOPHAGE ORDER", "ACCU CHECKS ACHS" AND "LDSS HUMALOG". ALL ORDERS READ BACK AND VERIFIED. Initialized on 05/13/22 06:41 - END OF NOTE 05/13/22 01:56 Nursing Note by Sumi Solorzano Checked CXR results for placement of NG. Results/impression-enteric tube coiled within the esophagus with tip in the proxmal thoracic espohagus. Position rechecked by Vanda gabriela Rn and met resistance. Pt refused for this nurse to pull NG and reanchor. So NG pulled and explained to pt that may need to reanchor if increased nausea/vomiting or abd pain. Initialized on 05/13/22 01:56 - END OF NOTE 05/13/22 01:13 Nursing Note by Bailey Alexander REPORT RECEIVED AND PT CARE TAKEN OVER BY THIS NURSE. Initialized on 05/13/22 01:13 - END OF NOTE 05/13/22 00:05 Nursing Note by Sumi Solorzano Pt pulled out NG tube. Replaced in right nare with 14fr nasogastric tube. Pt tolerated well. Check placement with air bolus. placement confirmed. order for cxr to check placemnt. Initialized on 05/13/22 00:05 - END OF NOTE Code(s): K56.0 - PARALYTIC ILEUS (2) Abdominal pain Current Visit: Yes Status: Acute Qualifiers: Abdominal location: generalized Qualified Code(s): R10.84 - Generalized abdominal pain Code(s): R10.9 - UNSPECIFIED ABDOMINAL PAIN (3) Gastroenteritis Current Visit: Yes Status: Acute Code(s): K52.9 - NONINFECTIVE GASTROENTERITIS AND COLITIS, UNSPECIFIED
[2022-05-13] MEDS: Flomax 0.4 MG PO SCH (21:37)
[2022-05-13] MEDS: ENOXAPARIN SODIUM SQ SCH (21:37)
[2022-05-13] MEDS: ZOCOR 20MG PO SCH (21:38)
[2022-05-14] MEDS: DUONEB 0.5-3 MG/3 ml Neb IH SCH ×6 (03:06→22:25)
[2022-05-14] MEDS: FLAGYL 500 MG IVPB 500 MG/100 ML BAG IV SCH ×4 (05:32→23:49)
[2022-05-14] MEDS: solu-MEDROL 40 MG, Sterile H2O 10 ml 1 ML IV SCH ×6 (05:32→21:45)
[2022-05-14] MEDS: Sodium Chloride 0.9% 1000 ML 1,000 ML IV SCH ×3 (06:24→21:55)
[2022-05-14 08:43] LABS: Hematocrit 40.6 % (42-50); Hemoglobin 12.3 g/dL (12.5-18.0); Mean Cell Volume 91.2 fL (78-100); Mean Corpuscular Hemoglobin 27.6 pg (26-32); Mean Corpuscular Hgb Concent. 30.3 g/dL (32-36); Mean Platelet Volume 11.6 fL (7.5-11.0); Platelet Count 286 x10^3/uL (150-450); Red Blood Count 4.45 x10^6/uL (4.1-5.6); Red Cell Distribution Width 14.3 % (11.5-14.0); White Blood Count 8.8 x10^3/uL (4.0-10.5)
[2022-05-14] MEDS: Vitamin B-12 500 MCG PO SCH (09:06)
[2022-05-14] MEDS: Cozaar 50 MG PO SCH (09:06)
[2022-05-14] MEDS: Pepcid 20 MG PO SCH (09:06)
[2022-05-14] MEDS: Levofloxacin 500MG/100ML D5W 500 MG/100 ML BAG IV SCH (09:06)
[2022-05-14] MEDS: NORVASC 5 MG PO SCH (09:06)
[2022-05-14] MEDS: Toprol-Xl 25MG Tablets PO SCH ×2 (09:07→21:45)
[2022-05-14] MEDS: Paxil 20 MG PO SCH (09:07)
[2022-05-14] MEDS: Vitamin B-6 (Pyridoxine) 100 MG PO SCH (09:07)
[2022-05-14] MEDS: Toprol Xl 50 MG PO SCH ×2 (09:07→21:45)
[2022-05-14] MEDS: Protonix 40MG Tablet PO SCH (09:07)
[2022-05-14] MEDS: FISH OIL 1,000 MG CAPSULE PO SCH ×2 (09:07→21:44)
[2022-05-14] MEDS: THERAGRAN MULTIVITAMIN PO SCH (09:07)
[2022-05-14] MEDS: Vitamin E 400 UNIT SOFTGEL PO SCH (09:08)
[2022-05-14] MEDS: HUMALOG SQ PRN ×2 (11:26→21:45)
[2022-05-14 13:44] LABS: ANION GAP 14.7 MEQ/L (5-15); Calcium 8.6 mg/dL (8.4-10.2); Creatinine 1 1.25 mg/dL (0.66-1.25); EST GLOMERULAR FILTRATION RATE 59.5 ML/MIN; Potassium 4.4 mmol/L (3.5-5.1)
--- NOTE | 2022-05-14 15:40 | CONS ---
CONSULT DATE: 05/14/2022 REASON FOR CONSULT: Possible small bowel obstruction. HISTORY: Today is and this process started on Wednesday. On Wednesday he got up and he ate some salmon cakes which is one of his favorites and actually a little bit before eating his salmon cakes he had some booming-like pain in his abdomen and then it got worse and it moved through to his kidney. He then developed nausea. He presented to the hospital. He had some morphine. He had some vomiting. He had no diarrhea. His is not sick. They have not eaten anything unusual. He had hemostasis the night before. He had not been around anybody with any illnesses. Both he and his had significant COVID back in July and I think she had it severe and he had it fairly mildly. He had a normal bowel movement on Wednesday evening but it seemed just as little bit light. He had no gas after that until when I walked in the room around 12:00 here on at [facility]. He had a nasogastric tube in and out here at the hospital but it had quite a bit of fluid in the last few hours, it has produced like 1200 cc. It has a touch of green but is primarily clear. His abdomen is moderately distended but there are no peritoneal signs. He does not appear to be toxic. He appears to be well hydrated. He has multiple medical problems. The consideration has been to transfer him to another hospital for surgical intervention. Additional history, the patient had laparoscopic cholecystectomy by Dr. Barboza some 15-20 years ago and did well from this. It was his only abdominal surgery. His chart is reviewed. He does not have any specific reason to have a bowel obstruction. He did have a colonoscopy about two years ago and he had a PillCam looking for bleeding about a year and a half ago. IMPRESSION: In general this gentleman is fairly up-to-date with diagnostic tests and studies. He is starting to pass gas. We will go ahead and get a small bowel follow through tomorrow morning. If this is clear, I think we can start full liquids and advance his diet. I think this is going to resolve. I do not know whether this is severe ileus from a viral illness. I certainly do not think it is a food poisoning-type of issue as he never had any diarrhea. PLAN: Small bowel follow through and disposition to follow. He can stay here at [facility]. If for some reason they change their mind and start thinking about surgery he should transfer to [facility]
--- NOTE | 2022-05-14 18:56 | PCM.NOTE ---
Date and Time: 05/14/221854 Subjective Assessment: doing better - Review of Systems Constitutional: No Fever, No Chills Eyes: No Symptoms Ears, Nose, & Throat: No Symptoms Respiratory: No Cough, No Short Of Breath Cardiac: No Chest Pain, No Edema, No Syncope Abdominal/Gastrointestinal: Other (abdominal distension), No Abdominal Pain, No Nausea, No Vomiting, No Diarrhea Genitourinary Symptoms: No Dysuria Musculoskeletal: No Back Pain, No Neck Pain Skin: No Rash Neurological: No Dizziness, No Focal Weakness, No Sensory Changes Psychological: No Symptoms Endocrine: No Symptoms Hematologic/Lymphatic: No Symptoms Immunological/Allergic: No Symptoms Objective Exam General Appearance: no apparent distress, alert Neurologic Exam: alert, oriented x 3, cooperative, normal mood/affect, nml cerebellar function, sensation nml, No motor deficits Skin Exam: normal color, warm, dry Eye Exam: PERRL, EOMI, eyes nml inspection Ears, Nose, Throat Exam: normal ENT inspection, pharynx normal, moist mucous membranes Neck Exam: normal inspection, non-tender, supple, full range of motion Respiratory Exam: normal breath sounds, lungs clear, No respiratory distress Cardiovascular Exam: regular rate/rhythm, normal heart sounds Gastrointestinal/Abdomen Exam: soft, distention, other, No tenderness, No mass Extremity Exam: normal inspection, normal range of motion Back Exam: normal inspection, normal range of motion, No CVA tenderness, No vertebral tenderness Male Genitalia Exam: deferred Rectal Exam: deferred OBJECTIVE DATA Vital Signs: Vital Signs - 24 hr Temp Pulse Resp BP Pulse Ox 05/14/22 16:00 97.8 F 71 16 127/60 94 L 05/14/22 14:35 76 20 92 L 05/14/22 11:32 78 18 94 L 05/14/22 11:25 96.6 F 78 18 169/67 93 L 05/14/22 07:28 90 18 93 L 05/14/22 06:35 96.9 F 96 H 18 142/69 93 L 05/14/22 04:00 97.7 F 86 22 167/78 93 L 05/14/22 03:06 78 18 92 L 05/13/22 23:35 97.7 F 78 19 144/69 94 L 05/13/22 22:33 78 18 93 L 05/13/22 20:00 96.6 F 76 19 144/73 94 L 05/13/22 19:29 85 16 92 L Pain Assessment - Last Documented Pain Intensity 0 Pain Scale Used 0-10 Pain Scale Intake and Output: Intake & Output 05/12/22 05/13/22 05/14/22 05/15/22 11:59 11:59 11:59 11:59 Intake Total 540 3080 1936 Output Total 1217 1983 1430 6083 [facility] -[phone] Weight 146.1 kg 141.9 kg 143 kg Lab Results: Lab Results-Last 24 Hours 05/13/22 05/14/22 05/14/22 Range/Units 20:56 07:17 08:42 WBC 8.8 (4.0-10.5) x10^3/uL RBC 4.45 (4.1-5.6) x10^6/uL Hgb 12.3 L (12.5-18.0) g/dL Hct 40.6 L (42-50) % MCV 91.2 (78-100) fL MCH 27.6 (26-32) pg MCHC 30.3 L (32-36) g/dL RDW 14.3 H (11.5-14.0) % Plt Count 286 (150-450) x10^3/uL MPV 11.6 H (7.5-11.0) fL Sodium (137-145) mmol/L Potassium (3.5-5.1) mmol/L Chloride (98-107) mmol/L Carbon Dioxide (22-30) mmol/L Anion Gap (5-15) MEQ/L BUN (9-20) mg/dL Creatinine (0.66-1.25) mg/dL Estimated GFR ML/MIN Glucose (74-106) mg/dL POC Glucometer 238 H 209 H (74 to 106) mg/dL Calcium (8.4-10.2) mg/dL 05/14/22 05/14/22 05/14/22 Range/Units 08:42 11:13 16:47 WBC (4.0-10.5) x10^3/uL RBC (4.1-5.6) x10^6/uL Hgb (12.5-18.0) g/dL Hct (42-50) % MCV (78-100) fL MCH (26-32) pg MCHC (32-36) g/dL RDW (11.5-14.0) % Plt Count (150-450) x10^3/uL MPV (7.5-11.0) fL Sodium 143 (137-145) mmol/L Potassium 4.4 (3.5-5.1) mmol/L Chloride 105 (98-107) mmol/L Carbon Dioxide 28 (22-30) mmol/L Anion Gap 14.7 (5-15) MEQ/L BUN 33 H (9-20) mg/dL Creatinine 1.25 (0.66-1.25) mg/dL Estimated GFR 59.5 ML/MIN Glucose 251 H (74-106) mg/dL POC Glucometer 233 H 191 H (74 to 106) mg/dL Calcium 8.6 (8.4-10.2) mg/dL Radiology Exams: Radiology Procedures Category Date Time Status CHEST 1 VIEW (PORTABLE) Stat Exams 05/13/22 00:04 Completed CHEST 1 VIEW (PORTABLE) Stat Exams 05/13/22 09:06 Completed SMALL BOWEL FOLLOWING UGI Routine Exams 05/15/22 08:00 Ordered Multi-Disciplinary Progress Notes: Multi-Disciplinary Progress Notes 05/14/22 09:48 Case Management Note by Montse Small PATIENT STILL ACUTELY ILL- NG IN PLACE. Initialized on 05/14/22 09:48 - END OF NOTE Assessment/Plan (1) Paralytic ileus Current Visit: Yes Status: Acute Assessment & Plan: Chief Complaint Diagnosis abdominal pain, nausea and vomiting for 1 day Allergies Allergy/AdvReac Type Severity Reaction Status Date / Time Sulfa (Sulfonamide Allergy Severe Verified 05/11/22 19:49 Antibiotics) codeine Allergy Intermediate Nausea and Verified 05/11/22 19:49 Vomiting cephalexin [From Keflex] Allergy Unknown Verified 05/11/22 19:49 Vital Signs (Last 24 hours) Temp Pulse Resp BP Pulse Ox 05/14/22 16:00 97.8 F 71 16 127/60 94 L 05/14/22 14:35 76 20 92 L 05/14/22 11:32 78 18 94 L 05/14/22 11:25 96.6 F 78 18 169/67 93 L 05/14/22 07:28 90 18 93 L 05/14/22 06:35 96.9 F 96 H 18 142/69 93 L 05/14/22 04:00 97.7 F 86 22 167/78 93 L 05/14/22 03:06 78 18 92 L 05/13/22 23:35 97.7 F 78 19 144/69 94 L 05/13/22 22:33 78 18 93 L 05/13/22 20:00 96.6 F 76 19 144/73 94 L 05/13/22 19:29 85 16 92 L Home Medications Medication Instructions Recorded Confirmed Last Taken Type Albuterol Sulfate [Proair Hfa] 8.5 gm IH Q4-6HPRN PRN 05/11/22 05/11/22 Unknown History Amlodipine Besylate [Norvasc] 2.5 mg PO DAILY 05/11/22 05/11/22 05/11/22 09:00 History [place]-3/Dha/Epa/Fish Oil [Fish Oil 4,000 mg PO BID 05/11/22 05/11/22 05/11/22 18:00 History 1,000 mg Softgel] Current Medications Generic Name Dose Route Start Last Admin Trade Name Amalia PRN Reason Stop Dose Admin Acetaminophen 650 mg 05/11/22 23:31 05/12/22 21:28 Acetaminophen 325 Mg Tablet PO 06/10/22 23:30 650 mg Q4H PRN PRN Administration PAIN, FEVER, HEADACHE Albuterol/Ipratropium 3 ml 05/13/22 07:00 05/14/22 14:33 Ipratropium/Albuterol Sulfate 3 Ml Ampul.Neb IH 06/12/22 06:59 3 ml Q4HRT DAHLIA Administration Amlodipine Besylate 2.5 mg 05/12/22 13:00 05/14/22 09:06 Amlodipine Besylate 5 Mg Tablet PO 06/11/22 12:59 2.5 mg DAILY DAHLIA Administration Methylprednisolone Sodium 0 mg 05/13/22 08:30 05/14/22 14:33 Succinate 40 mg/ Sterile Water IV 06/12/22 08:29 40 mg 1 ml Q8HT DAHLIA Administration Cyanocobalamin 1,000 mcg 05/12/22 13:00 05/14/22 09:06 Cyanocobalamin 500 Mcg Tablet PO 06/11/22 12:59 1,000 mcg DAILY DAHLIA Administration Enoxaparin Sodium 40 mg 05/12/22 22:00 05/13/22 21:37 Enoxaparin Sodium 40 Mg/0.4 Ml Syringe SQ 06/11/22 21:59 40 mg HS DAHLIA Administration Famotidine 20 mg 05/12/22 13:00 05/14/22 09:06 Famotidine 20 Mg Tablet PO 06/11/22 12:59 20 mg DAILY DAHLIA Administration Fish Oil 4,000 mg 05/12/22 13:00 05/14/22 09:07 [place]-3 Fatty Acids/Fish Oil 1000 Mg Capsule PO 06/11/22 12:59 4,000 mg BID DAHLIA Administration Metronidazole 500 mg in 100 mls @ 200 mls/hr 05/12/22 00:00 05/14/22 17:05 Flagyl 500 Mg Ivpb IV 06/11/22 00:00 200 mls/hr Q6HT DAHLIA Administration Promethazine HCl 25 mg/ Sodium 101 mls @ 200 mls/hr 05/12/22 12:03 05/12/22 12:41 Chloride IV 06/11/22 12:02 200 mls/hr Q4H PRN PRN Administration UNCONTROLLED NAUSEA Levofloxacin/Dextrose 500 mg in 100 mls @ 100 mls/hr 05/12/22 14:00 05/14/22 09:06 Levofloxacin 500mg/100ml D5w IV 06/11/22 13:59 100 mls/hr DAILY DAHLIA Administration Sodium Chloride 1,000 mls @ 150 mls/hr 05/13/22 08:15 05/14/22 14:33 Sodium Chloride 0.9% 1000 Ml IV 06/12/22 08:14 150 mls/hr .Q6H40M DAHLIA Administration Insulin Human Lispro 0 unit 05/13/22 07:00 05/14/22 11:26 Insulin Lispro 1 Unit SQ 06/12/22 06:59 2 unit UD PRN Administration HYPERGLYCEMIA Losartan Potassium 50 mg 05/12/22 13:00 05/14/22 09:06 Losartan Potassium 50 Mg Tablet PO 06/11/22 12:59 50 mg DAILY DAHLIA Administration Metoprolol Succinate 50 mg 05/12/22 13:00 05/14/22 09:07 Metoprolol Succinate 50 Mg Tablet.Sa PO 06/11/22 12:59 50 mg BID DAHLIA Administration Metoprolol Succinate 25 mg 05/12/22 13:00 05/14/22 09:07 Metoprolol Succinate 25 Mg Xl Tab PO 06/11/22 12:59 25 mg BID DAHLIA Administration Miscellaneous Information 1 each 05/12/22 13:00 Medication Intervention 1 Each Each 06/11/22 12:59 .RN TO CHECK DAHLIA Miscellaneous Information 1 each 05/12/22 13:00 Medication Intervention 1 Each Each 06/11/22 12:59 .RN TO CHECK DAHLIA Morphine Sulfate 4 mg 05/11/22 23:31 05/12/22 01:55 Morphine Sulfate 4 Mg/Ml Injection IV 05/16/22 23:30 4 mg Q6H PRN PRN Administration PAIN Multivitamins Therapeutic 1 tab 05/12/22 13:00 05/14/22 09:07 Multivitamins,Therapeutic 1 Tab Tab PO 06/11/22 12:59 1 tab DAILY DAHLIA Administration Ondansetron HCl 4 mg 05/12/22 05:25 05/12/22 09:30 Ondansetron Hcl 4 Mg/2 Ml Vial IV 06/11/22 05:22 4 mg Q4H PRN PRN Administration NAUSEA/VOMITING Pantoprazole Sodium 40 mg 05/12/22 13:00 05/14/22 09:07 Protonix (Pantoprazole) 40 Mg Tablet PO 06/11/22 12:59 40 mg DAILY DAHLIA Administration Paroxetine HCl 20 mg 05/12/22 13:00 05/14/22 09:07 Paroxetine Hcl 20 Mg Tablet PO 06/11/22 12:59 20 mg DAILY DAHLIA Administration Pyridoxine HCl 100 mg 05/12/22 13:00 05/14/22 09:07 Pyridoxine Hcl 100 Mg Tablet PO 06/11/22 12:59 100 mg DAILY DAHLIA Administration Senna 8.6 mg 05/12/22 12:29 05/12/22 21:26 Senna 8.6 Mg Tablet PO 06/11/22 12:28 8.6 mg DAILY PRN PRN Administration CONSTIPATION Simvastatin 20 mg 05/12/22 22:00 05/13/22 21:38 Simvastatin 20 Mg Tablet PO 06/11/22 21:59 20 mg HS DAHLIA Administration Tamsulosin HCl 0.8 mg 05/12/22 22:00 05/13/22 21:37 Tamsulosin Hcl 0.4 Mg Cap PO 06/11/22 21:59 0.8 mg HS DAHLIA Administration Vitamin E 400 u 05/12/22 13:00 05/14/22 09:08 Vitamin E 400 Iu Softgel PO 06/11/22 12:59 400 u DAILY DAHLIA Administration Zolpidem Tartrate 5 mg 05/12/22 20:44 05/12/22 21:27 Zolpidem Tartrate 5 Mg Tab PO 06/11/22 20:43 5 mg HS PRN PRN Administration INSOMNIA Discontinued Medications Generic Name Dose Route Start Last Admin Trade Name Freq PRN Reason Stop Dose Admin Albuterol Sulfate 4 puff 05/12/22 07:00 05/12/22 11:11 Albuterol Common Canister Inhaler 06/11/22 06:59 4 puff QIDRT DAHLIA Administration Albuterol Sulfate 2 puff 05/12/22 11:36 05/13/22 07:10 Albuterol Common Canister Inhaler IH 06/11/22 06:59 2 puff QIDRT DAHLIA Administration Albuterol/Ipratropium Confirm 05/13/22 08:13 Ipratropium/Albuterol Sulfate 3 Ml Ampul.Neb Administered 05/13/22 08:14 Dose 3 ml IH .STK-MED ONE Apixaban 5 mg 05/12/22 13:00 05/12/22 13:41 Apixaban 2.5 Mg Tablet PO 06/11/22 12:59 Not Given BID DAHLIA Sodium Chloride 1,000 mls @ 999 mls/hr 05/11/22 20:59 05/11/22 21:02 Sodium Chloride 0.9% 1000 Ml IV 05/11/22 21:59 999 mls/hr .Q1H1M STA Administration Sodium Chloride Confirm 05/11/22 21:01 Sodium Chloride 0.9% 1000 Ml Administered 05/11/22 21:02 Dose 1,000 mls @ ud .ROUTE .STK-MED ONE Metronidazole 500 mg in 100 mls @ 200 mls/hr 05/11/22 22:16 05/11/22 22:35 Flagyl 500 Mg Ivpb IV 05/11/22 22:45 200 ml/hr STAT STA 200 mls/hr Administration Metronidazole Confirm 05/11/22 22:25 Flagyl 500 Mg Ivpb Administered 05/11/22 22:26 Dose 500 mg in 100 mls @ ud IV .STK-MED ONE Sodium Chloride 1,000 mls @ 999 mls/hr 05/11/22 23:02 05/11/22 23:04 Sodium Chloride 0.9% 1000 Ml IV 05/12/22 00:02 999 mls/hr .Q1H1M STA Administration Sodium Chloride Confirm 05/11/22 23:03 Sodium Chloride 0.9% 1000 Ml Administered 05/11/22 23:04 Dose 1,000 mls @ ud .ROUTE .STK-MED ONE Sodium Chloride 1,000 mls @ 100 mls/hr 05/11/22 23:31 05/12/22 00:16 Sodium Chloride 0.45% 1000 Ml IV 06/10/22 23:30 100 mls/hr .Q10H DAHLIA Administration Lactated Ringer's 1,000 mls @ 150 mls/hr 05/12/22 05:30 05/13/22 06:33 Lactated Ringers IV 06/11/22 05:29 100 mls/hr .Q6H40M DAHLIA Infusion Sodium Chloride Confirm 05/12/22 00:15 Sodium Chloride 0.45% 1000 Ml Administered 05/12/22 00:16 Dose 1,000 mls @ ud IV .STK-MED ONE Lactated Ringer's 1,000 mls @ 100 mls/hr 05/13/22 06:38 05/13/22 10:30 Lactated Ringers IV 06/12/22 06:29 Not Given .Q10H DAHLIA Metformin HCl 500 mg 05/12/22 22:00 05/12/22 21:28 Metformin Hcl 500 Mg Tablet PO 06/11/22 21:59 500 mg HS DAHLIA Administration Morphine Sulfate 4 mg 05/11/22 22:12 05/11/22 22:31 Morphine Sulfate 4 Mg/Ml Injection IV 05/11/22 22:13 4 mg STAT ONE Administration Morphine Sulfate Confirm 05/11/22 22:25 Morphine Sulfate 4 Mg/Ml Injection Administered 05/11/22 22:26 Dose 4 mg .ROUTE .STK-MED ONE Ondansetron HCl 4 mg 05/11/22 22:12 05/11/22 22:32 Ondansetron Hcl 4 Mg/2 Ml Vial IV 05/11/22 22:13 4 mg STAT ONE Administration Ondansetron HCl Confirm 05/11/22 22:24 Ondansetron Hcl 4 Mg/2 Ml Vial Administered 05/11/22 22:25 Dose 4 mg .ROUTE .STK-MED ONE Ondansetron HCl 4 mg 05/11/22 23:31 05/12/22 01:53 Ondansetron Hcl 4 Mg/2 Ml Vial IV 06/10/22 23:30 4 mg Q6H PRN PRN Administration NAUSEA/VOMITING Ondansetron HCl Confirm 05/12/22 01:51 Ondansetron Hcl 4 Mg/2 Ml Vial Administered 05/12/22 01:52 Dose 4 mg .ROUTE .STK-MED ONE Pantoprazole Sodium 40 mg 05/11/22 23:31 05/12/22 00:27 Pantoprazole 40 Mg Vial IV 06/10/22 23:30 40 mg Q24H DAHLIA Administration Pantoprazole Sodium 40 mg 05/12/22 22:00 Pantoprazole 40 Mg Vial IV 06/10/22 23:30 QPM DAHLIA Intake & Output (Last 24 hours) 05/12/22 05/13/22 05/14/22 05/15/22 11:59 11:59 11:59 11:59 Intake Total 540 3084 1936 Output Total 0901 5842 3478 1900 [facility] -710 [phone] -1539 -1900 Weight 146.1 kg 141.9 kg 143 kg Laboratory Results (Last 24 hours) 05/14/22 05/14/22 05/14/22 16:47 11:13 08:42 WBC RBC Hgb Hct MCV MCH MCHC RDW Plt Count MPV Sodium 143 Potassium 4.4 Chloride 105 Carbon Dioxide 28 Anion Gap 14.7 BUN 33 H Creatinine 1.25 Estimated GFR 59.5 Glucose 251 H POC Glucometer 191 H 233 H Calcium 8.6 05/14/22 05/14/22 05/13/22 08:42 07:17 20:56 WBC 8.8 RBC 4.45 Hgb 12.3 L Hct 40.6 L MCV 91.2 MCH 27.6 MCHC 30.3 L RDW 14.3 H Plt Count 286 MPV 11.6 H Sodium Potassium Chloride Carbon Dioxide Anion Gap BUN Creatinine Estimated GFR Glucose POC Glucometer 209 H 238 H Calcium Orders (Last 24 hours) Category Date Time Status SMALL BOWEL FOLLOWING UGI Routine Exams 05/15/22 08:00 Ordered BMP Urgent Lab 05/14/22 08:42 Completed CBC Urgent Lab 05/14/22 08:42 Completed POCT GLUCOSE Stat Lab 05/13/22 20:56 Completed POCT GLUCOSE Stat Lab 05/14/22 07:17 Completed POCT GLUCOSE Stat Lab 05/14/22 11:13 Completed POCT GLUCOSE Stat Lab 05/14/22 16:47 Completed Flutter Therapy UD RT 05/14/22 14:47 Active Patient Care Notes (Last 24 hours) 05/14/22 14:33 Nursing Note by Roro Shell Dr came in and saw the patient stated that he does not need surgery, he is to have Upper GI with small bowel follow through tomorrow 05/14/2022 . Can use the NG for the contrast. MARTINA Ricardo contacted Dr Connell and notified. Contacted the [place] transfer center spoke with Rolando and cancelled transfer to [place] at this time. Initialized on 05/14/22 14:33 - END OF NOTE 05/14/22 13:09 (created 05/14/22 13:13) Nursing Note by Roro Shell Contacted [place] [facility] to have patient transferred up to [place]. Spoke with Rolando who stated she would speak with the hospitalist and the surgeon and have them contact Dr. Connell and call us back with an update. Initialized on 05/14/22 13:13 - END OF NOTE 05/14/22 09:48 Case Management Note by Montse Small PATIENT STILL ACUTELY ILL- NG IN PLACE. Initialized on 05/14/22 09:48 - END OF NOTE Code(s): K56.0 - PARALYTIC ILEUS (2) Abdominal pain Current Visit: Yes Status: Acute Qualifiers: Abdominal location: generalized Qualified Code(s): R10.84 - Generalized abdominal pain Code(s): R10.9 - UNSPECIFIED ABDOMINAL PAIN (3) Gastroenteritis Current Visit: Yes Status: Acute Code(s): K52.9 - NONINFECTIVE GASTROENTERITIS AND COLITIS, UNSPECIFIED
[2022-05-14] MEDS: ENOXAPARIN SODIUM SQ SCH (21:44)
[2022-05-14] MEDS: Flomax 0.4 MG PO SCH (21:44)
[2022-05-14] MEDS: ZOCOR 20MG PO SCH (21:45)
[2022-05-15] MEDS: DUONEB 0.5-3 MG/3 ml Neb IH SCH ×6 (03:42→23:09)
[2022-05-15] MEDS: solu-MEDROL 40 MG, Sterile H2O 10 ml 1 ML IV SCH ×6 (05:00→21:42)
[2022-05-15] MEDS: FLAGYL 500 MG IVPB 500 MG/100 ML BAG IV SCH ×4 (05:00→23:39)
[2022-05-15] MEDS: Sodium Chloride 0.9% 1000 ML 1,000 ML IV SCH ×4 (05:00→21:38)
[2022-05-15 08:39] LABS: Hematocrit 40.5 % (42-50); Hemoglobin 12.6 g/dL (12.5-18.0); Mean Cell Volume 88.8 fL (78-100); Mean Corpuscular Hemoglobin 27.6 pg (26-32); Mean Corpuscular Hgb Concent. 31.1 g/dL (32-36); Mean Platelet Volume 11.5 fL (7.5-11.0); Platelet Count 300 x10^3/uL (150-450); Red Blood Count 4.56 x10^6/uL (4.1-5.6); Red Cell Distribution Width 14.2 % (11.5-14.0); White Blood Count 9.1 x10^3/uL (4.0-10.5)
[2022-05-15 09:07] LABS: ALBUMIN 4.1 g/dL (3.5-5.0); ALKALINE PHOSPHATASE 75 U/L (38-126); ANION GAP 12.1 MEQ/L (5-15); BLOOD UREA NITROGEN 29 mg/dL (9-20); CHLORIDE 106 mmol/L (98-107); Calcium 8.6 mg/dL (8.4-10.2); Carbon Dioxide 28 mmol/L (22-30); Creatinine 1 1.04 mg/dL (0.66-1.25); EST GLOMERULAR FILTRATION RATE > 60.0 ML/MIN; Glucose 239 mg/dL (74-106); Potassium 4.4 mmol/L (3.5-5.1); SGOT/AST 45 U/L (17-59); SGPT/ALT 37 U/L (0-50); SODIUM 142 mmol/L (137-145); Total Protein 6.6 g/dL (6.3-8.2)
--- NOTE | 2022-05-15 09:17 | PCM.NOTE ---
Date and Time: 05/15/22913 Subjective Assessment: patient arrived with abd pain and nausea/vomiting. had elevated pancreas enzymes on arrival but have normalized. ct ?ileus vs enteritis, he has NG to LIS. passed flatus overnight and states he is feeling better at this time. Objective Exam General Appearance: no apparent distress, alert Neurologic Exam: alert, oriented x 3 Respiratory Exam: normal breath sounds, lungs clear, No respiratory distress Cardiovascular Exam: regular rate/rhythm, normal heart sounds Gastrointestinal/Abdomen Exam: soft, No tenderness, No mass Extremity Exam: normal inspection, normal range of motion OBJECTIVE DATA Vital Signs: Vital Signs - 24 hr Temp Pulse Resp BP Pulse Ox 05/15/22 08:29 65 20 170/77 94 L 05/15/22 08:00 98.4 F 76 23 175/77 91 L 05/15/22 06:47 65 20 94 L 05/15/22 03:46 66 18 93 L 05/15/22 03:45 97.8 F 74 18 170/77 93 L 05/14/22 23:38 98.0 F 87 20 147/70 93 L 05/14/22 22:25 78 20 94 L 05/14/22 20:00 98.2 F 100 H 21 143/98 93 L 05/14/22 19:42 61 16 93 L 05/14/22 16:00 97.8 F 71 16 127/60 94 L 05/14/22 14:35 76 20 92 L 05/14/22 11:32 78 18 94 L 05/14/22 11:25 96.6 F 78 18 169/67 93 L Pain Assessment - Last Documented Pain Intensity 0 Pain Scale Used 0-10 Pain Scale Intake and Output: Intake & Output 05/12/22 05/13/22 05/14/22 05/15/22 11:59 11:59 11:59 11:59 Intake Total 061 308 1936 3602 Output Total 2479 7662 3482 7993 Balance -620 -2758 -9036 -176 Weight 146.1 kg 141.9 kg 143 kg 143 kg Lab Results: Lab Results-Last 24 Hours 05/14/22 05/14/22 05/14/22 Range/Units 08:42 11:13 16:47 WBC (4.0-10.5) x10^3/uL RBC (4.1-5.6) x10^6/uL Hgb (12.5-18.0) g/dL Hct (42-50) % MCV (78-100) fL MCH (26-32) pg MCHC (32-36) g/dL RDW (11.5-14.0) % Plt Count (150-450) x10^3/uL MPV (7.5-11.0) fL Sodium 143 (137-145) mmol/L Potassium 4.4 (3.5-5.1) mmol/L Chloride 105 (98-107) mmol/L Carbon Dioxide 28 (22-30) mmol/L Anion Gap 14.7 (5-15) MEQ/L BUN 33 H (9-20) mg/dL Creatinine 1.25 (0.66-1.25) mg/dL Estimated GFR 59.5 ML/MIN Glucose 251 H (74-106) mg/dL POC Glucometer 233 H 191 H (74 to 106) mg/dL Calcium 8.6 (8.4-10.2) mg/dL Total Bilirubin (0.2-1.3) mg/dL AST (17-59) U/L ALT (0-50) U/L Alkaline Phosphatase (38-126) U/L Serum Total Protein (6.3-8.2) g/dL Albumin (3.5-5.0) g/dL 05/14/22 05/15/22 05/15/22 Range/Units 20:50 07:52 08:35 WBC 9.1 (4.0-10.5) x10^3/uL RBC 4.56 (4.1-5.6) x10^6/uL Hgb 12.6 (12.5-18.0) g/dL Hct 40.5 L (42-50) % MCV 88.8 (78-100) fL MCH 27.6 (26-32) pg MCHC 31.1 L (32-36) g/dL RDW 14.2 H (11.5-14.0) % Plt Count 300 (150-450) x10^3/uL MPV 11.5 H (7.5-11.0) fL Sodium (137-145) mmol/L Potassium (3.5-5.1) mmol/L Chloride (98-107) mmol/L Carbon Dioxide (22-30) mmol/L Anion Gap (5-15) MEQ/L BUN (9-20) mg/dL Creatinine (0.66-1.25) mg/dL Estimated GFR ML/MIN Glucose (74-106) mg/dL POC Glucometer 232 H 223 H (74 to 106) mg/dL Calcium (8.4-10.2) mg/dL Total Bilirubin (0.2-1.3) mg/dL AST (17-59) U/L ALT (0-50) U/L Alkaline Phosphatase (38-126) U/L Serum Total Protein (6.3-8.2) g/dL Albumin (3.5-5.0) g/dL 05/15/22 Range/Units 08:35 WBC (4.0-10.5) x10^3/uL RBC (4.1-5.6) x10^6/uL Hgb (12.5-18.0) g/dL Hct (42-50) % MCV (78-100) fL MCH (26-32) pg MCHC (32-36) g/dL RDW (11.5-14.0) % Plt Count (150-450) x10^3/uL MPV (7.5-11.0) fL Sodium 142 (137-145) mmol/L Potassium 4.4 (3.5-5.1) mmol/L Chloride 106 (98-107) mmol/L Carbon Dioxide 28 (22-30) mmol/L Anion Gap 12.1 (5-15) MEQ/L BUN 29 H (9-20) mg/dL Creatinine 1.04 (0.66-1.25) mg/dL Estimated GFR > 60.0 ML/MIN Glucose 239 H (74-106) mg/dL POC Glucometer (74 to 106) mg/dL Calcium 8.6 (8.4-10.2) mg/dL Total Bilirubin 0.80 (0.2-1.3) mg/dL AST 45 (17-59) U/L ALT 37 (0-50) U/L Alkaline Phosphatase 75 (38-126) U/L Serum Total Protein 6.6 (6.3-8.2) g/dL Albumin 4.1 (3.5-5.0) g/dL Radiology Exams: Radiology Procedures Category Date Time Status CHEST 1 VIEW (PORTABLE) Stat Exams 05/13/22 09:06 Completed SMALL BOWEL FOLLOWING UGI Routine Exams 05/15/22 08:00 Ordered Multi-Disciplinary Progress Notes: Multi-Disciplinary Progress Notes 05/14/22 09:48 Case Management Note by Montse Small PATIENT STILL ACUTELY ILL- NG IN PLACE. Initialized on 05/14/22 09:48 - END OF NOTE Assessment/Plan (1) Pancreatitis Current Visit: Yes Status: Acute Assessment & Plan: resolved, has been NPO. initial leukocytosis was likely related to mild acute pancreatitis which caused ileus as well. Code(s): K85.90 - ACUTE PANCREATITIS WITHOUT NECROSIS OR INFECTION, UNSP (2) Paralytic ileus Current Visit: Yes Status: Acute Assessment & Plan: upper GI with small bowel follow-through pending this am. if no obstruction can likely discontinue NG since he is passing flatus and advance diet as tolerated, clinically appears improved Code(s): K56.0 - PARALYTIC ILEUS
--- NOTE | 2022-05-15 12:41 | XRAY ---
Indication: Abdomen pain. Ileus. 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 Solid organs unremarkable. Osseous structures intact with osteopenia and moderate multilevel degenerative spondylosis. Approximately 750 cc of diluted Gastrografin injected through indwelling NG tube. Multiple overhead and digital spot images obtained. Normal antegrade movement of the Gastrografin through the small bowel loops to the level of the ascending colon within 60 minutes. Spot compression of the bowel loops are negative for focal stricture, obstruction, filling defect, or inflammatory changes. Normal ileocecal junction. Impression: Negative small bowel follow-through exam. Approximately 0.4 minute fluoroscopy used.
[2022-05-15] MEDS: Cozaar 50 MG PO SCH (12:51)
[2022-05-15] MEDS: THERAGRAN MULTIVITAMIN PO SCH (12:51)
[2022-05-15] MEDS: Vitamin B-12 500 MCG PO SCH (12:51)
[2022-05-15] MEDS: Protonix 40MG Tablet PO SCH (12:51)
[2022-05-15] MEDS: Paxil 20 MG PO SCH (12:51)
[2022-05-15] MEDS: Toprol-Xl 25MG Tablets PO SCH ×2 (12:52→21:40)
[2022-05-15] MEDS: Pepcid 20 MG PO SCH (12:52)
[2022-05-15] MEDS: HUMALOG SQ PRN ×3 (12:55→21:54)
[2022-05-15] MEDS: Toprol Xl 50 MG PO SCH ×2 (12:55→21:40)
[2022-05-15] MEDS: Levofloxacin 500MG/100ML D5W 500 MG/100 ML BAG IV SCH (12:56)
[2022-05-15] MEDS: NORVASC 5 MG PO SCH (12:56)
[2022-05-15] MEDS: Vitamin B-6 (Pyridoxine) 100 MG PO SCH (12:57)
[2022-05-15] MEDS: Vitamin E 400 UNIT SOFTGEL PO SCH (12:58)
[2022-05-15] MEDS: FISH OIL 1,000 MG CAPSULE PO SCH ×2 (13:09→21:39)
[2022-05-15] MEDS: ENOXAPARIN SODIUM SQ SCH (21:38)
[2022-05-15] MEDS: ZOCOR 20MG PO SCH (21:40)
[2022-05-15] MEDS: Flomax 0.4 MG PO SCH (21:40)
[2022-05-15] MEDS: Ambien 5 MG Tablet PO PRN (21:54)
[2022-05-16] MEDS: DUONEB 0.5-3 MG/3 ml Neb IH SCH ×6 (03:37→23:38)
[2022-05-16 05:52] LABS: Absolute Neutrophil Ct (ANC) 9.26 x10^3/uL (1.4-6.9); Basophil (Absolute #) 0.07 x10^3/uL (0-0.4); Eosinophil (Absolute #) 0 x10^3/uL (0-0.5); Hemoglobin 11.7 g/dL (12.5-18.0); Lymphocyte (Absolute #) 0.74 x10^3/uL (1.0-4.6); Lymphocytes % 6.4 % (24.0-44.0); Mean Cell Volume 88.1 fL (78-100); Mean Corpuscular Hemoglobin 27.9 pg (26-32); Mean Corpuscular Hgb Concent. 31.6 g/dL (32-36); Mean Platelet Volume 11.8 fL (7.5-11.0); Monocytes % 9.5 % (0.0-12.0); Neutrophil % 79.5 % (36.0-66.0); Platelet Count 274 x10^3/uL (150-450); Red Cell Distribution Width 14.3 % (11.5-14.0); White Blood Count 11.6 x10^3/uL (4.0-10.5)
[2022-05-16] MEDS: solu-MEDROL 40 MG, Sterile H2O 10 ml 1 ML IV SCH ×2 (06:03)
[2022-05-16] MEDS: FLAGYL 500 MG IVPB 500 MG/100 ML BAG IV SCH ×4 (06:04→23:42)
[2022-05-16 06:09] LABS: ALBUMIN 3.5 g/dL (3.5-5.0); ALKALINE PHOSPHATASE 62 U/L (38-126); AMYLASE 76 U/L (30-110); ANION GAP 10.6 MEQ/L (5-15); BLOOD UREA NITROGEN 23 mg/dL (9-20); CHLORIDE 105 mmol/L (98-107); Carbon Dioxide 25 mmol/L (22-30); Creatinine 1 1.04 mg/dL (0.66-1.25); EST GLOMERULAR FILTRATION RATE > 60.0 ML/MIN; Glucose 246 mg/dL (74-106); LIPASE 152 U/L (23-300); Potassium 3.6 mmol/L (3.5-5.1); SGOT/AST 46 U/L (17-59); SGPT/ALT 39 U/L (0-50); SODIUM 137 mmol/L (137-145); Total Protein 5.9 g/dL (6.3-8.2)
[2022-05-16] MEDS: Sodium Chloride 0.9% 1000 ML 1,000 ML IV SCH (06:57)
--- NOTE | 2022-05-16 07:50 | PCM.NOTE ---
Date and Time: 05/16/22 0748 Subjective Assessment: NG tube is out, patient states he is feeling better. no vomiting overnight, denies abd pain. he is requiring oxygen, normally only uses with his cpap at night Objective Exam General Appearance: no apparent distress, obese Respiratory Exam: crackles/rales Cardiovascular Exam: regular rate/rhythm, normal heart sounds Gastrointestinal/Abdomen Exam: soft, No tenderness, No mass Extremity Exam: normal inspection, normal range of motion OBJECTIVE DATA Vital Signs: Vital Signs - 24 hr Temp Pulse Resp BP Pulse Ox 05/16/22 07:04 73 18 92 L 05/16/22 03:52 97.7 F 82 20 147/71 91 L 05/16/22 03:37 77 20 91 L 05/15/22 23:51 97.8 F 82 20 150/71 90 L 05/15/22 23:09 83 20 92 L 05/15/22 20:00 98.0 F 94 H 20 139/68 92 L 05/15/22 18:36 90 20 94 L 05/15/22 16:00 97.5 F 82 23 142/67 93 L 05/15/22 14:49 78 22 96 05/15/22 12:00 97.3 F 80 23 185/81 94 L 05/15/22 08:29 65 20 170/77 94 L 05/15/22 08:00 98.4 F 76 23 175/77 91 L Pain Assessment - Last Documented Pain Intensity 0 Pain Scale Used 0-10 Pain Scale Intake and Output: Intake & Output 05/13/22 05/14/22 05/15/22 05/16/22 11:59 11:59 11:59 11:59 Intake Total 4672 4788 4112 300 Output Total 6517 8625 6144 600 Balance -2741 -1539 -898 -300 Weight 141.9 kg 143 kg 143 kg 143 kg Lab Results: Lab Results-Last 24 Hours 05/15/22 05/15/22 05/15/22 Range/Units 07:52 08:35 08:35 WBC 9.1 (4.0-10.5) x10^3/uL RBC 4.56 (4.1-5.6) x10^6/uL Hgb 12.6 (12.5-18.0) g/dL Hct 40.5 L (42-50) % MCV 88.8 (78-100) fL MCH 27.6 (26-32) pg MCHC 31.1 L (32-36) g/dL RDW 14.2 H (11.5-14.0) % Plt Count 300 (150-450) x10^3/uL MPV 11.5 H (7.5-11.0) fL Gran % (36.0-66.0) % Immature Gran % (Auto) (0.00-0.4) % Nucleat RBC Rel Count (0.00-0.1) % Eos # (Auto) (0-0.5) x10^3/uL Immature Gran # (Auto) (0.00-0.03) x10^3u/L Absolute Lymphs (auto) (1.0-4.6) x10^3/uL Absolute Monos (auto) (0.0-1.3) x10^3/uL Absolute Nucleated RBC (0.00-0.01) x10^3u/L Lymphocytes % (24.0-44.0) % Monocytes % (0.0-12.0) % Eosinophils % (0.00-5.0) % Basophils % (0.0-0.4) % Absolute Granulocytes (1.4-6.9) x10^3/uL Basophils # (0-0.4) x10^3/uL Sodium 142 (137-145) mmol/L Potassium 4.4 (3.5-5.1) mmol/L Chloride 106 (98-107) mmol/L Carbon Dioxide 28 (22-30) mmol/L Anion Gap 12.1 (5-15) MEQ/L BUN 29 H (9-20) mg/dL Creatinine 1.04 (0.66-1.25) mg/dL Estimated GFR > 60.0 ML/MIN Glucose 239 H (74-106) mg/dL POC Glucometer 223 H (74 to 106) mg/dL Calcium 8.6 (8.4-10.2) mg/dL Total Bilirubin 0.80 (0.2-1.3) mg/dL AST 45 (17-59) U/L ALT 37 (0-50) U/L Alkaline Phosphatase 75 (38-126) U/L Serum Total Protein 6.6 (6.3-8.2) g/dL Albumin 4.1 (3.5-5.0) g/dL Amylase (30-110) U/L Lipase (23-300) U/L 05/15/22 05/15/22 05/15/22 Range/Units 12:51 17:11 18:53 WBC (4.0-10.5) x10^3/uL RBC (4.1-5.6) x10^6/uL Hgb (12.5-18.0) g/dL Hct (42-50) % MCV (78-100) fL MCH (26-32) pg MCHC (32-36) g/dL RDW (11.5-14.0) % Plt Count (150-450) x10^3/uL MPV (7.5-11.0) fL Gran % (36.0-66.0) % Immature Gran % (Auto) (0.00-0.4) % Nucleat RBC Rel Count (0.00-0.1) % Eos # (Auto) (0-0.5) x10^3/uL Immature Gran # (Auto) (0.00-0.03) x10^3u/L Absolute Lymphs (auto) (1.0-4.6) x10^3/uL Absolute Monos (auto) (0.0-1.3) x10^3/uL Absolute Nucleated RBC (0.00-0.01) x10^3u/L Lymphocytes % (24.0-44.0) % Monocytes % (0.0-12.0) % Eosinophils % (0.00-5.0) % Basophils % (0.0-0.4) % Absolute Granulocytes (1.4-6.9) x10^3/uL Basophils # (0-0.4) x10^3/uL Sodium (137-145) mmol/L Potassium (3.5-5.1) mmol/L Chloride (98-107) mmol/L Carbon Dioxide (22-30) mmol/L Anion Gap (5-15) MEQ/L BUN (9-20) mg/dL Creatinine (0.66-1.25) mg/dL Estimated GFR ML/MIN Glucose (74-106) mg/dL POC Glucometer 215 H TNP 291 H (74 to 106) mg/dL Calcium (8.4-10.2) mg/dL Total Bilirubin (0.2-1.3) mg/dL AST (17-59) U/L ALT (0-50) U/L Alkaline Phosphatase (38-126) U/L Serum Total Protein (6.3-8.2) g/dL Albumin (3.5-5.0) g/dL Amylase (30-110) U/L Lipase (23-300) U/L 05/15/22 05/16/22 05/16/22 Range/Units 21:34 05:45 05:45 WBC 11.6 H (4.0-10.5) x10^3/uL RBC 4.20 (4.1-5.6) x10^6/uL Hgb 11.7 L (12.5-18.0) g/dL Hct 37.0 L (42-50) % MCV 88.1 (78-100) fL MCH 27.9 (26-32) pg MCHC 31.6 L (32-36) g/dL RDW 14.3 H (11.5-14.0) % Plt Count 274 (150-450) x10^3/uL MPV 11.8 H (7.5-11.0) fL Gran % 79.5 H (36.0-66.0) % Immature Gran % (Auto) 4.0 H (0.00-0.4) % Nucleat RBC Rel Count 0.0 (0.00-0.1) % Eos # (Auto) 0 (0-0.5) x10^3/uL Immature Gran # (Auto) 0.47 H (0.00-0.03) x10^3u/L Absolute Lymphs (auto) 0.74 L (1.0-4.6) x10^3/uL Absolute Monos (auto) 1.10 (0.0-1.3) x10^3/uL Absolute Nucleated RBC 0.00 (0.00-0.01) x10^3u/L Lymphocytes % 6.4 L (24.0-44.0) % Monocytes % 9.5 (0.0-12.0) % Eosinophils % 0.0 (0.00-5.0) % Basophils % 0.6 (0.0-0.4) % Absolute Granulocytes 9.26 H (1.4-6.9) x10^3/uL Basophils # 0.07 (0-0.4) x10^3/uL Sodium 137 (137-145) mmol/L Potassium 3.6 (3.5-5.1) mmol/L Chloride 105 (98-107) mmol/L Carbon Dioxide 25 (22-30) mmol/L Anion Gap 10.6 (5-15) MEQ/L BUN 23 H (9-20) mg/dL Creatinine 1.04 (0.66-1.25) mg/dL Estimated GFR > 60.0 ML/MIN Glucose 246 H (74-106) mg/dL POC Glucometer 389 H (74 to 106) mg/dL Calcium 8.0 L (8.4-10.2) mg/dL Total Bilirubin 0.70 (0.2-1.3) mg/dL AST 46 (17-59) U/L ALT 39 (0-50) U/L Alkaline Phosphatase 62 (38-126) U/L Serum Total Protein 5.9 L (6.3-8.2) g/dL Albumin 3.5 (3.5-5.0) g/dL Amylase 76 (30-110) U/L Lipase 152 (23-300) U/L Radiology Exams: Radiology Procedures Category Date Time Status SMALL BOWEL SERIES Routine Exams 05/15/22 08:00 Completed Multi-Disciplinary Progress Notes: Multi-Disciplinary Progress Notes 05/15/22 19:00 Respiratory Note by Helen Dorman Patient refuses CPAP for the night at this time. Pt was advised to contact RT if he changes his mind and would like to wear it. Initialized on 05/15/22 19:00 - END OF NOTE 05/15/22 14:51 Respiratory Note by Vanda Perea O2 sat 96% on 3lpm nc. O2 decreased to 2lpm nc Initialized on 05/15/22 14:51 - END OF NOTE 05/15/22 09:53 Case Management Note by Montse Small S/W PATIENT- HE CONTINUES TO DENY ANY NEW NEEDS AT TIME OF DC. 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 Initialized on 05/15/22 09:53 - END OF NOTE Assessment/Plan (1) Pancreatitis Current Visit: Yes Status: Acute Code(s): K85.90 - ACUTE PANCREATITIS WITHOUT NECROSIS OR INFECTION, UNSP (2) Paralytic ileus Current Visit: Yes Status: Acute Assessment & Plan: resolved, advance diet. he has ordered breakfast. Code(s): K56.0 - PARALYTIC ILEUS (3) CHF (congestive heart failure) Current Visit: Yes Status: Acute Assessment & Plan: has some volume overload, will give IV lasix and lock fluids this am. Code(s): I50.9 - HEART FAILURE, UNSPECIFIED
[2022-05-16] MEDS: HUMALOG SQ PRN ×4 (08:30→21:38)
[2022-05-16] MEDS: Protonix 40MG Tablet PO SCH (09:22)
[2022-05-16] MEDS: Paxil 20 MG PO SCH (09:22)
[2022-05-16] MEDS: Lasix 40 MG/4 ML IV SCH (09:22)
[2022-05-16] MEDS: THERAGRAN MULTIVITAMIN PO SCH (09:22)
[2022-05-16] MEDS: FISH OIL 1,000 MG CAPSULE PO SCH ×2 (09:22→21:17)
[2022-05-16] MEDS: Vitamin B-12 500 MCG PO SCH (09:22)
[2022-05-16] MEDS: Klor Con PO SCH (09:23)
[2022-05-16] MEDS: Cozaar 50 MG PO SCH (09:23)
[2022-05-16] MEDS: Toprol Xl 50 MG PO SCH ×2 (09:23→21:17)
[2022-05-16] MEDS: Toprol-Xl 25MG Tablets PO SCH ×2 (09:23→21:17)
[2022-05-16] MEDS: Vitamin E 400 UNIT SOFTGEL PO SCH (09:24)
[2022-05-16] MEDS: NORVASC 5 MG PO SCH (09:24)
[2022-05-16] MEDS: Pepcid 20 MG PO SCH (09:24)
[2022-05-16] MEDS: Vitamin B-6 (Pyridoxine) 100 MG PO SCH (09:25)
[2022-05-16] MEDS: Levofloxacin 500MG/100ML D5W 500 MG/100 ML BAG IV SCH (09:26)
[2022-05-16] MEDS: Flomax 0.4 MG PO SCH (21:16)
[2022-05-16] MEDS: ENOXAPARIN SODIUM SQ SCH (21:17)
[2022-05-16] MEDS: ZOCOR 20MG PO SCH (21:17)
[2022-05-17] MEDS: DUONEB 0.5-3 MG/3 ml Neb IH SCH ×3 (03:37→10:55)
[2022-05-17] MEDS: FLAGYL 500 MG IVPB 500 MG/100 ML BAG IV SCH (05:33)
[2022-05-17 05:59] LABS: Hematocrit 38.2 % (42-50); Hemoglobin 11.9 g/dL (12.5-18.0); Mean Cell Volume 89.5 fL (78-100); Mean Corpuscular Hemoglobin 27.9 pg (26-32); Mean Corpuscular Hgb Concent. 31.2 g/dL (32-36); Mean Platelet Volume 11.9 fL (7.5-11.0); Platelet Count 261 x10^3/uL (150-450); Red Blood Count 4.27 x10^6/uL (4.1-5.6); White Blood Count 12.6 x10^3/uL (4.0-10.5)
[2022-05-17 06:20] LABS: BLOOD UREA NITROGEN 22 mg/dL (9-20); CHLORIDE 101 mmol/L (98-107); Calcium 7.8 mg/dL (8.4-10.2); Carbon Dioxide 30 mmol/L (22-30); Creatinine 1 1.18 mg/dL (0.66-1.25); EST GLOMERULAR FILTRATION RATE > 60.0 ML/MIN; Glucose 221 mg/dL (74-106); MAGNESIUM 2.1 mg/dL (1.6-2.3); SODIUM 136 mmol/L (137-145)
[2022-05-17 06:22] LABS: Potassium 3.2 mmol/L (3.5-5.1)
[2022-05-17 06:27] LABS: ANION GAP 8.2 MEQ/L (5-15)
--- NOTE | 2022-05-17 07:34 | PCM.DS ---
Discharge Summary Date of Admission: 05/12/22 04:30 Admitting Physician: GONSALO HAMMONDS Consults: Consults on Case 05/12/22 14:26 Consult Surgery ROUTINE Primary Care Provider: GONSALO HAMMONDS Allergies Allergies Sulfa (Sulfonamide Antibiotics) Allergy (Severe, Verified 05/11/22 19:49) hallucinations codeine Allergy (Intermediate, Verified 05/11/22 19:49) Nausea and Vomiting cephalexin [From Keflex] Allergy (Unknown, Verified 05/11/22 19:49) Hospital Summary - Hospital Course Hospital Course: patient was admitted with nausea, vomiting and abd pain. found to have ileus on ct and mild pancreatitis. his pain is resolved, no more nausea or vomiting and he is tolerating a regular diet. feels well upon discharge. - Vitals & Intake/Output Vital Signs: Vital Signs Temperature 97.5 F 05/17/22 04:00 Pulse Rate 73 05/17/22 06:52 Respiratory Rate 18 05/17/22 06:52 Blood Pressure 163/72 05/17/22 04:00 O2 Sat by Pulse Oximetry 92 L 05/17/22 06:52 Intake & Output: Intake & Output 05/14/22 05/15/22 05/16/22 05/17/22 11:59 11:59 11:59 11:59 Intake Total 1936 3602 900 4438 Output Total 3475 4500 600 Balance -1539 -588 287 3074 Weight 143 kg 143 kg 141.2 kg - Lab Result Diagrams: 05/17/22 05:59 05/17/22 05:59 Lab Results-Last 24 Hrs: Lab Results-Last 24 Hours 05/16/22 05/16/22 05/16/22 Range/Units 11:40 16:16 21:24 WBC (4.0-10.5) x10^3/uL RBC (4.1-5.6) x10^6/uL Hgb (12.5-18.0) g/dL Hct (42-50) % MCV (78-100) fL MCH (26-32) pg MCHC (32-36) g/dL RDW (11.5-14.0) % Plt Count (150-450) x10^3/uL MPV (7.5-11.0) fL Sodium (137-145) mmol/L Potassium (3.5-5.1) mmol/L Chloride (98-107) mmol/L Carbon Dioxide (22-30) mmol/L Anion Gap (5-15) MEQ/L BUN (9-20) mg/dL Creatinine (0.66-1.25) mg/dL Estimated GFR ML/MIN Glucose (74-106) mg/dL POC Glucometer 272 H 257 H 245 H (74 to 106) mg/dL Calcium (8.4-10.2) mg/dL Magnesium (1.6-2.3) mg/dL 05/17/22 05/17/22 Range/Units 05:59 05:59 WBC 12.6 H (4.0-10.5) x10^3/uL RBC 4.27 (4.1-5.6) x10^6/uL Hgb 11.9 L (12.5-18.0) g/dL Hct 38.2 L (42-50) % MCV 89.5 (78-100) fL MCH 27.9 (26-32) pg MCHC 31.2 L (32-36) g/dL RDW 14.0 (11.5-14.0) % Plt Count 261 (150-450) x10^3/uL MPV 11.9 H (7.5-11.0) fL Sodium 136 L (137-145) mmol/L Potassium 3.2 L (3.5-5.1) mmol/L Chloride 101 (98-107) mmol/L Carbon Dioxide 30 (22-30) mmol/L Anion Gap 8.2 (5-15) MEQ/L BUN 22 H (9-20) mg/dL Creatinine 1.18 (0.66-1.25) mg/dL Estimated GFR > 60.0 ML/MIN Glucose 221 H (74-106) mg/dL POC Glucometer (74 to 106) mg/dL Calcium 7.8 L (8.4-10.2) mg/dL Magnesium 2.1 (1.6-2.3) mg/dL Micro Results-Entire Visit: Accuchecks Date 05/16/22 Date 05/16/22 Date 05/16/22 Time 21:30 Time 16:16 Time 11:40 - Radiology Exams Ordered Rad Exams-Entire Visit: Radiology Procedures Category Date Time Status SMALL BOWEL SERIES Routine Exams 05/15/22 08:00 Completed - Procedures and Test Procedures and Tests throughout Hospitalization: Therapy Orders & Screens 05/11/22 23:52 Respiratory Therapy Assessment DAILY Comment: Diagnosis: Gastroenteritis 05/11/22 23:56 BiPap/CPAP ROUTINE Comment: Diagnosis: Gastroenteritis 05/12/22 00:29 BiPap/CPAP ROUTINE Comment: Diagnosis: Gastroenteritis 05/12/22 11:24 Oxygen Nasal Cannula 2 lpm Comment: Diagnosis: Gastroenteritis 05/14/22 14:47 Flutter Therapy UD Comment: Diagnosis: abdominal pain, nausea and vomiting for 1 day Discharge Exam General Appearance: no apparent distress Neurologic Exam: alert, oriented x 3 Respiratory Exam: normal breath sounds, lungs clear, No respiratory distress Cardiovascular Exam: regular rate/rhythm, normal heart sounds Gastrointestinal/Abdomen Exam: soft, No tenderness, No mass Extremity Exam: normal inspection, normal range of motion Skin Exam: normal color, warm, dry Final Diagnosis/Problem List - Final Discharge Diagnosis/Problem (1) Paralytic ileus Current Visit: Yes Status: Acute Code(s): K56.0 - PARALYTIC ILEUS (2) Pancreatitis Current Visit: Yes Status: Acute Code(s): K85.90 - ACUTE PANCREATITIS WITHOUT NECROSIS OR INFECTION, UNSP (3) CHF (congestive heart failure) Current Visit: Yes Status: Acute Code(s): I50.9 - HEART FAILURE, UNSPECIFIED - Discharge Disposition: Home, Self-Care Condition: Stable Prescriptions: Continue Senna 8.6 mg [Senokot 8.6 mg] 8.6 mg PO DAILY PRN PRN PRN Reason: Constipation Pyridoxine HCl (Vitamin B6) [Vitamin B-6] 100 mg PO DAILY Vitamin E 400 Units [Vitamin E 400 UNIT SOFTGEL] 400 unit PO DAILY Losartan Potassium 50 mg PO DAILY Tamsulosin HCl 0.4 mg [Flomax 0.4 MG] 0.8 mg PO HS Nabumetone [Relafen] 500 mg PO BID Metoprolol Succinate 75 mg PO BID Metformin HCl 500 mg [Glucophage 500 MG] 500 mg PO HS Multivitamin [Multi-Vitamin Daily] 1 each PO DAILY Omeprazole 20 mg PO DAILY Apixaban [Eliquis] 5 mg PO BID Famotidine 20 mg [Pepcid 20 MG] 20 mg PO DAILY Cyanocobalamin (Vitamin B-12) [Vitamin B12] 1,000 mcg PO DAILY Ubidecarenone [Co Q-10] 200 mg PO DAILY Rosuvastatin Calcium 10 mg PO HS PARoxetine HCL [Paroxetine HCl] 20 mg PO DAILY Alpine-3/Dha/Epa/Fish Oil [Fish Oil 1,000 mg Softgel] 4,000 mg PO BID Amlodipine Besylate [Norvasc] 2.5 mg PO DAILY Albuterol Sulfate [Proair Hfa] 8.5 gm IH Q4-6HPRN PRN PRN Reason: Shortness Of Breath Follow up with: [facility] [Family Provider] - GONSALO HAMMONDS MD [Primary Care Provider] - Call for Appointment
[2022-05-17] MEDS: HUMALOG SQ PRN (08:39)
[2022-05-17] MEDS: Klor Con PO SCH (10:08)
[2022-05-17] MEDS: Cozaar 50 MG PO SCH (10:08)
[2022-05-17] MEDS: Lasix 40 MG/4 ML IV SCH (10:08)
[2022-05-17] MEDS: THERAGRAN MULTIVITAMIN PO SCH (10:08)
[2022-05-17] MEDS: Toprol Xl 50 MG PO SCH (10:08)
[2022-05-17] MEDS: Vitamin B-12 500 MCG PO SCH (10:08)
[2022-05-17] MEDS: Pepcid 20 MG PO SCH (10:08)
[2022-05-17] MEDS: Toprol-Xl 25MG Tablets PO SCH (10:09)
[2022-05-17] MEDS: NORVASC 5 MG PO SCH (10:09)
[2022-05-17] MEDS: Protonix 40MG Tablet PO SCH (10:09)
[2022-05-17] MEDS: Paxil 20 MG PO SCH (10:09)
[2022-05-17] MEDS: Vitamin B-6 (Pyridoxine) 100 MG PO SCH (10:10)
[2022-05-17] MEDS: Vitamin E 400 UNIT SOFTGEL PO SCH (10:10)
[2022-05-17] MEDS: Levofloxacin 500MG/100ML D5W 500 MG/100 ML BAG IV SCH (10:19)
[2022-05-17 10:21] LABS: BAND 3 % (0.0-2.0); Lymphocytes 15 % (24-44); Monocyte 13 % (0.0-12.0); Platelet Estimate NORMAL (NORMAL); Total Cells Counted 100
[2022-05-17] MEDS: FISH OIL 1,000 MG CAPSULE PO SCH (10:21)
[2022-05-17 12:47] VITALS: BP 114/61; PULSE 82; O2SAT 95
== END 2022-05-17 12:28 | disposition home or self-care (01) | DRG 388 ==
LOC: ED 19:31 → MED SURG 23:22 → OBSVTOIN 05-12 04:30
PROVIDERS: ADMIT General Practice; ATTEND General Practice
DX: K56.0 Paralytic ileus (principal); K85.90 Acute pancreatitis without necrosis or infection, unspecified; I11.0 Hypertensive heart disease with heart failure; I50.9 Heart failure, unspecified; E11.9 Type 2 diabetes mellitus without complications; K52.9 Noninfective gastroenteritis and colitis, unspecified; R10.84 Generalized abdominal pain; Z79.899 Other long term (current) drug therapy; Z20.828 Contact with and (suspected) exposure to other viral communicable diseases; Z79.01 Long term (current) use of anticoagulants
CPT/HCPCS: 0241U; 36000; 36415; 71045; 74176; 74250; 80048; 80053; 81015; 82150; 82947; 83036; 83605; 83690; 83735; 85025; 85027; 94640; 94660; 94667; 94668; 94760; 96374; 96375; 99285; G0378; J1650; J1817; J1940; J1956; J2270; J2405; J2550; J2920; A9270-GY

== ENCOUNTER 2024-05-16 15:41 | Observation (INO) | payer MEDICARE ==
--- NOTE | 2024-05-16 17:08 | ERPHSYRPT ---
- History of Present Illness Time Seen by Provider: 05/16/24 16:50 Source: patient Exam Limitations: no limitations Patient Subjective Stated Complaint: C/O cough for 4 days so went to see primary care (Dr. Hammonds) today. Patient states Dr. Hammonds told him he had fluid a round his heart and to go to the ER. Triage Nursing Assessment: Patient brought back to ER in a W/C. He is alert and oriented. He is SOB with minimal exertion. Wheezes present. He is wearing a mask. Skin tone normal. Scabs noted to BUE. Edema present to BLE. Moist, non-productive cough noted during assessment. Physician History: Patient is a 79-year-old male referred to our ED from his primary care doctor for evaluation of possible CHF. Patient followed up with his primary care doctor for evaluation of a cough and SOB that he has had for 4 days. Cough is dry nonproductive and associated with mild shortness of breath. Upon evaluation by his primary care doctor patient was sent to our ED for evaluation of possible CHF. No chest pain no nausea vomiting or diaphoresis no fever. Symptoms are mild to moderate in intensity. Symptoms are worse with exertion. Symptoms improved with rest. Daughter at bedside. They voiced no other complaints or concerns at this time. Portions of this note were created with voice recognition technology. There may be grammatical, spelling, punctuation or sound alike errors Timing/Duration: day(s) Severity: moderate (4 days) Modifying Factors: Improves With: nothing Associated Symptoms: shortness of breath Allergies/Adverse Reactions: Sulfa (Sulfonamide Antibiotics) Allergy (Severe, Verified 05/16/24 16:46) hallucinations codeine Allergy (Intermediate, Verified 05/16/24 16:46) Nausea and Vomiting cephalexin [From Keflex] Allergy (Unknown, Verified 05/16/24 16:46) Home Medications: Losartan Potassium 50 mg PO DAILY 09/08/15 [History] Metformin HCl 500 mg [Glucophage 500 MG] 500 mg PO HS 09/08/15 [History] Metoprolol Succinate 75 mg PO BID 09/08/15 [History] Multivitamin [Multi-Vitamin Daily] 1 each PO DAILY 09/08/15 [History] Nabumetone [Relafen] 500 mg PO BID 09/08/15 [History] Pyridoxine HCl (Vitamin B6) [Vitamin B-6] 100 mg PO DAILY 09/08/15 [History] Senna 8.6 mg [Senokot 8.6 mg] 8.6 mg PO DAILY PRN PRN 09/08/15 [History] Tamsulosin HCl 0.4 mg [Flomax 0.4 MG] 0.8 mg PO HS 09/08/15 [History] Vitamin E 400 Units [Vitamin E 400 UNIT SOFTGEL] 400 unit PO DAILY 09/08/15 [History] Omeprazole 20 mg PO DAILY 10/21/15 [History] Famotidine 20 mg [Pepcid 20 MG] 20 mg PO DAILY 02/23/20 [History] Cyanocobalamin (Vitamin B-12) [Vitamin B12] 1,000 mcg PO DAILY 09/24/20 [History] PARoxetine HCL [Paroxetine HCl] 20 mg PO DAILY 09/24/20 [History] Rosuvastatin Calcium 10 mg PO HS 09/24/20 [History] Ubidecarenone [Co Q-10] 200 mg PO DAILY 09/24/20 [History] Albuterol Sulfate [Proair Hfa] 8.5 gm IH Q4-6HPRN PRN 05/11/22 [History] Amlodipine Besylate [Norvasc] 2.5 mg PO DAILY 05/11/22 [History] [place]-3/Dha/Epa/Fish Oil [Fish Oil 1,000 mg Softgel] 4,000 mg PO BID 05/11/22 [History] Aspirin EC 81 mg [Ecotrin 81 mg] 81 mg PO DAILY 05/16/24 [History] Clopidogrel Bisulfate [Plavix] 75 mg PO DAILY 05/16/24 [History] Hx Tetanus, Diphtheria Vaccination/Date Given: Yes Hx Influenza Vaccination/Date Given: Yes Hx Pneumococcal Vaccination/Date Given: Yes Immunizations Up to Date: Yes Travel Risk - International Travel Have you traveled outside of the country in past 3 weeks: No - Emerging Infectious Disease Are you exhibiting symptoms associated with any current EIDs: Yes Symptoms: Cough: New Onset, Shortness of Breath - Review of Systems Constitutional: No Symptoms, No Fever, No Chills Eyes: No Symptoms Ears, Nose, & Throat: No Symptoms Respiratory: No Symptoms, No Cough, No Dyspnea Cardiac: No Symptoms, No Chest Pain, No Edema, No Syncope Abdominal/Gastrointestinal: No Symptoms, No Abdominal Pain, No Nausea, No Vomiting, No Diarrhea Genitourinary Symptoms: No Symptoms, No Dysuria Musculoskeletal: No Symptoms, No Back Pain, No Neck Pain Skin: No Symptoms, No Rash Neurological: No Symptoms, No Dizziness, No Focal Weakness, No Sensory Changes Psychological: No Symptoms Endocrine: No Symptoms Hematologic/Lymphatic: No Symptoms Immunological/Allergic: No Symptoms All Other Systems: Reviewed and Negative - Past Medical History Pertinent Past Medical History: Yes Neurological History: Peripheral Neuropathy ENT History: No Pertinent History Cardiac History: Arrhythmia, Deep Vein Thrombosis, Hypertension Respiratory History: COPD, Pulmonary Embolism, Sleep Apnea Endocrine Medical History: Diabetes Type II Musculoskeletal History: Osteoarthritis GI Medical History: Gallbladder Disease History: No Pertinent History Psycho-Social History: Depression Male Reproductive Disorders: Prostate Problems Other Medical History: SURGERY ON L QUAD AFTER A TEAR, CODED AT [facility] DUE TO A BLOOD CLOT. RECENT BRAIN SCAN BY DR. GARIBAY, WAS PASSING OUT DUE TO SYCOPE. ABLASION OF HEART TO TX AFIB 1 MONTH AGO. PACEMAKER, DEFIBRILLATOR. - Past Surgical History Past Surgical History: Yes Neuro Surgical History: No Pertinent History Cardiac: Cardiac Catheterization, Internal Defibrillator, Pacemaker Respiratory: No Pertinent History Gastrointestinal: Cholecystectomy Genitourinary: No Pertinent History Musculoskeletal: Orthopedic Surgery Male Surgical History: Other Other Surgical History: dental surgical extractions,left knee, tear of tendons repaired, watchman procedure in December 2023, Territory Representative: Dr. Galeano/Mai Significant Family History: diabetes, hypertension - Social History Smoking Status: Former smoker How long have you smoked: 42 years Exposure to second hand smoke: No Alcohol Use: None Drug Use: none Patient Lives Alone: No - Social Determinants of Health Will the patient participate in the screening: Declined to provide - Nursing Vital Signs Nursing Vital Signs: Initial Vital Signs Temperature 98.7 F 05/16/24 16:40 Pulse Rate 79 05/16/24 16:40 Respiratory Rate 27 H 05/16/24 16:40 Blood Pressure 139/66 05/16/24 16:40 O2 Sat by Pulse Oximetry 95 05/16/24 16:40 Pain Scale Pain Intensity 0 - Physical Exam General Appearance: no apparent distress, alert Eye Exam: PERRL/EOMI, eyes nml inspection Ears, Nose, Throat Exam: normal ENT inspection, pharynx normal, moist mucous membranes Neck Exam: normal inspection, non-tender, supple, full range of motion Respiratory Exam: normal breath sounds, lungs clear, airway intact, No respiratory distress Cardiovascular Exam: regular rate/rhythm, normal heart sounds, normal peripheral pulses Gastrointestinal/Abdomen Exam: soft, normal bowel sounds, No tenderness, No mass Back Exam: normal inspection, normal range of motion, No CVA tenderness, No vertebral tenderness Extremity Exam: normal inspection, normal range of motion, pelvis stable Neurologic Exam: alert, oriented x 3, cooperative, normal mood/affect, sensation nml, No motor deficits Skin Exam: normal color, warm, dry, No rash Lymphatic Exam: No adenopathy SpO2 Interpretation: normal SpO2: 96 O2 Delivery: Room Air - Course Nursing assessment & vital signs reviewed: Yes EKG Interpreted by Me: RATE (68), Sinus Rhythm, NORMAL AXIS, NORMAL INTERVALS, R ight Bundle Branch Block - Radiology Exams Chest X-ray Interpretation: Interpreted by me (No acute findings) Ordered Tests: Active Orders 24 hr Category Date Time Status Compressor Mechanic Bus STAT Care 05/16/24 17:01 Active EKG-ER Only STAT Care 05/16/24 17:00 Active IV Insertion STAT Care 05/16/24 17:00 Active Pulse Oximetry (ED) STAT Care 05/16/24 17:00 Active CHEST 1 VIEW (PORTABLE) Stat Exams 05/16/24 17:01 Taken CBC W DIFF Stat Lab 05/16/24 17:20 Completed CMP Stat Lab 05/16/24 17:20 Completed Lactic Acid Stat Lab 05/16/24 17:23 Completed MAGNESIUM Stat Lab 05/16/24 17:20 Completed NT PRO BNPII Stat Lab 05/16/24 17:20 Completed PROTIME WITH INR Stat Lab 05/16/24 17:20 Completed PTT Stat Lab 05/16/24 17:20 Completed TROPONIN Q4H Lab 05/16/24 17:20 Completed TROPONIN Q4H Lab 05/16/24 21:15 Ordered TROPONIN Q4H Lab 05/17/24 01:15 Ordered VENOUS BLOOD GAS Stat Lab 05/16/24 17:23 Completed Transfer Order Routine Transfer 05/16/24 Ordered Lab/Rad Data: Laboratory Result Diagrams 05/16/24 17:20 05/16/24 17:20 Laboratory Results 05/16/24 05/16/24 05/16/24 Range/Units 17:23 17:23 17:20 WBC (4.23-9.07) x10^3/uL RBC (4.63-6.08) x10^6/uL Hgb (13.7-17.5) g/dL Hct (40.1-51.0) % MCV (79.0-92.2) fL MCH (25.7-32.2) pg MCHC (32.3-36.5) g/dL RDW (11.6-14.4) % Plt Count (163-337) x10^3/uL MPV (9.4-12.4) fL Gran % (34.0-67.9) % Immature Gran % (Auto) (0.001-0.429) % Nucleat RBC Rel Count (0.00-0.2) % Eos # (Auto) (0.04-0.54) x10^3/uL Immature Gran # (Auto) (0.001-0.031) x10^3u/L Absolute Lymphs (auto) (1.32-3.57) x10^3/uL Absolute Monos (auto) (0.30-0.82) x10^3/uL Absolute Nucleated RBC (0.00-0.012) x10^3u/L Lymphocytes % (21.8-53.1) % Monocytes % (5.3-12.2) % Eosinophils % (0.8-7.0) % Basophils % (0.2-1.2) % Absolute Granulocytes (1.78-5.38) x10^3/uL Basophils # (0.01-0.08) x10^3/uL PT (9.4-12.5) SECONDS INR (0.8-3.0) APTT (25.1-36.5) SECONDS pO2/FiO2 Ratio 21.0 % VBG pH 7.43 H (7.32-7.42) VBG pCO2 at Pat Temp 41 L (42-55) mm/Hg VBG pO2 at Pat Temp 38 (25-40) mm/Hg VBG HCO3 27.2 (22-28) meq/L VBG O2 Sat (Maurisio) 66.4 L (95-100) VBG Base Excess 2.6 H (-2.0-2.0) VBG Hemoglobin 7.6 L* VBG Carboxyhemoglobin 3.7 (0.0-6.9) % T HGB POC Potassium 3.7 (3.5-5.1) Sodium (135-145) mmol/L Potassium (3.5-5.1) mmol/L Chloride (98-107) mmol/L Carbon Dioxide (22-30) mmol/L Anion Gap (5-15) MEQ/L BUN (9-20) mg/dL Creatinine (0.66-1.25) mg/dL Estimated GFR ML/MIN Glucose (74-106) mg/dL Lactic Acid 1.2 (0.4-2.0) Calcium (8.4-10.2) mg/dL Magnesium (1.6-2.3) mg/dL Total Bilirubin (0.2-1.3) mg/dL AST (17-59) U/L ALT (0-50) U/L Alkaline Phosphatase (38-126) U/L Troponin I (0.000-0.033) ng/mL NT-Pro-B Natriuret Pep 449 (<300) pg/mL Serum Total Protein (6.3-8.2) g/dL Albumin (3.5-5.0) g/dL Slides for Path Review 05/16/24 05/16/24 05/16/24 Range/Units 17:20 17:20 17:20 WBC (4.23-9.07) x10^3/uL RBC (4.63-6.08) x10^6/uL Hgb (13.7-17.5) g/dL Hct (40.1-51.0) % MCV (79.0-92.2) fL MCH (25.7-32.2) pg MCHC (32.3-36.5) g/dL RDW (11.6-14.4) % Plt Count (163-337) x10^3/uL MPV (9.4-12.4) fL Gran % (34.0-67.9) % Immature Gran % (Auto) (0.001-0.429) % Nucleat RBC Rel Count (0.00-0.2) % Eos # (Auto) (0.04-0.54) x10^3/uL Immature Gran # (Auto) (0.001-0.031) x10^3u/L Absolute Lymphs (auto) (1.32-3.57) x10^3/uL Absolute Monos (auto) (0.30-0.82) x10^3/uL Absolute Nucleated RBC (0.00-0.012) x10^3u/L Lymphocytes % (21.8-53.1) % Monocytes % (5.3-12.2) % Eosinophils % (0.8-7.0) % Basophils % (0.2-1.2) % Absolute Granulocytes (1.78-5.38) x10^3/uL Basophils # (0.01-0.08) x10^3/uL PT 10.7 (9.4-12.5) SECONDS INR 0.98 (0.8-3.0) APTT 39.5 H (25.1-36.5) SECONDS pO2/FiO2 Ratio % VBG pH (7.32-7.42) VBG pCO2 at Pat Temp (42-55) mm/Hg VBG pO2 at Pat Temp (25-40) mm/Hg VBG HCO3 (22-28) meq/L VBG O2 Sat (Maurisio) (95-100) VBG Base Excess (-2.0-2.0) VBG Hemoglobin VBG Carboxyhemoglobin (0.0-6.9) % T HGB POC Potassium (3.5-5.1) Sodium 142 (135-145) mmol/L Potassium 3.8 (3.5-5.1) mmol/L Chloride 104 (98-107) mmol/L Carbon Dioxide 27 (22-30) mmol/L Anion Gap 15.1 H (5-15) MEQ/L BUN 15 (9-20) mg/dL Creatinine 1.46 H (0.66-1.25) mg/dL Estimated GFR 48.6 ML/MIN Glucose 115 H (74-106) mg/dL Lactic Acid (0.4-2.0) Calcium 9.0 (8.4-10.2) mg/dL Magnesium 2.3 (1.6-2.3) mg/dL Total Bilirubin 0.80 (0.2-1.3) mg/dL AST 26 (17-59) U/L ALT 17 (0-50) U/L Alkaline Phosphatase 88 (38-126) U/L Troponin I < 0.012 (0.000-0.033) ng/mL NT-Pro-B Natriuret Pep (<300) pg/mL Serum Total Protein 6.9 (6.3-8.2) g/dL Albumin 3.9 (3.5-5.0) g/dL Slides for Path Review 05/16/24 Range/Units 17:20 WBC 7.8 (4.23-9.07) x10^3/uL RBC 3.55 L (4.63-6.08) x10^6/uL Hgb 6.9 L* (13.7-17.5) g/dL Hct 25.7 L (40.1-51.0) % MCV 72.4 L (79.0-92.2) fL MCH 19.4 L (25.7-32.2) pg MCHC 26.8 L (32.3-36.5) g/dL RDW 18.2 H (11.6-14.4) % Plt Count 392 H (163-337) x10^3/uL MPV 10.6 (9.4-12.4) fL Gran % 65.6 (34.0-67.9) % Immature Gran % (Auto) 0.3 (0.001-0.429) % Nucleat RBC Rel Count 0.0 (0.00-0.2) % Eos # (Auto) 0.40 (0.04-0.54) x10^3/uL Immature Gran # (Auto) 0.02 (0.001-0.031) x10^3u/L Absolute Lymphs (auto) 1.10 L (1.32-3.57) x10^3/uL Absolute Monos (auto) 1.10 H (0.30-0.82) x10^3/uL Absolute Nucleated RBC 0.00 (0.00-0.012) x10^3u/L Lymphocytes % 14.1 L (21.8-53.1) % Monocytes % 14.1 H (5.3-12.2) % Eosinophils % 5.1 (0.8-7.0) % Basophils % 0.8 (0.2-1.2) % Absolute Granulocytes 5.10 (1.78-5.38) x10^3/uL Basophils # 0.06 (0.01-0.08) x10^3/uL PT (9.4-12.5) SECONDS INR (0.8-3.0) APTT (25.1-36.5) SECONDS pO2/FiO2 Ratio % VBG pH (7.32-7.42) VBG pCO2 at Pat Temp (42-55) mm/Hg VBG pO2 at Pat Temp (25-40) mm/Hg VBG HCO3 (22-28) meq/L VBG O2 Sat (Maurisio) (95-100) VBG Base Excess (-2.0-2.0) VBG Hemoglobin VBG Carboxyhemoglobin (0.0-6.9) % T HGB POC Potassium (3.5-5.1) Sodium (135-145) mmol/L Potassium (3.5-5.1) mmol/L Chloride (98-107) mmol/L Carbon Dioxide (22-30) mmol/L Anion Gap (5-15) MEQ/L BUN (9-20) mg/dL Creatinine (0.66-1.25) mg/dL Estimated GFR ML/MIN Glucose (74-106) mg/dL Lactic Acid (0.4-2.0) Calcium (8.4-10.2) mg/dL Magnesium (1.6-2.3) mg/dL Total Bilirubin (0.2-1.3) mg/dL AST (17-59) U/L ALT (0-50) U/L Alkaline Phosphatase (38-126) U/L Troponin I (0.000-0.033) ng/mL NT-Pro-B Natriuret Pep (<300) pg/mL Serum Total Protein (6.3-8.2) g/dL Albumin (3.5-5.0) g/dL Slides for Path Review YES - Progress Progress: improved Progress Note: Patient accepted by at 6:36 PM. 79-year-old male presents to our ED for shortness of breath and a cough. Workup reveals a significant microcytic anemia. Chest x-ray no acute findings. BNP 449. Hemoglobin 6.9. Patient will require transfusion. Plan of care discussed with patient. He agrees to admission at [facility] for further evaluation and treatment including blood transfusion. Portions of this note were created with voice recognition technology. There may be grammatical, spelling, punctuation or sound alike errors Complexity of problem addressed is moderate acute complicated. No critical care time. Complex of data reviewed and analyzed is sensitive. Test ordered test reviewed results analyzed and correlated clinically with history and physical exam. Discussed with hospitalist accepts admission to observation. Risk of complication or risk of morbidity/mortality of patient management is high. Patient requires hospitalization for further evaluation and treatment.. Vital stable. Time spent to discharge patient approximately 20 minutes. Plan of care established for shared decision making. No social determinants of health present to impede follow-up. Portions of this note were created with voice recognition technology. There may be grammatical, spelling, punctuation or sound alike errors 05/16/24 18:42 05/16/24 18:43 Counseled pt/family regarding: lab results, diagnosis, need for follow-up, rad results - Departure Departure Disposition: Observation Clinical Impression: Symptomatic anemia, Shortness of breath Condition: Stable Critical Care Time: No Referrals: GONSALO HAMMONDS MD [Primary Care Provider] - Follow up/PCP as directed
[2024-05-16 17:31] LABS: BASOPHIL % 0.8 % (0.2-1.2); Basophil (Absolute #) 0.06 x10^3/uL (0.01-0.08); Eosinophil % 5.1 % (0.8-7.0); Hematocrit 25.7 % (40.1-51.0); IMMATURE GRAN # 0.02 x10^3u/L (0.001-0.031); IMMATURE GRAN % 0.3 % (0.001-0.429); Lymphocytes % 14.1 % (21.8-53.1); Mean Cell Volume 72.4 fL (79.0-92.2); Mean Corpuscular Hemoglobin 19.4 pg (25.7-32.2); Mean Corpuscular Hgb Concent. 26.8 g/dL (32.3-36.5); Mean Platelet Volume 10.6 fL (9.4-12.4); Monocytes % 14.1 % (5.3-12.2); Neutrophil % 65.6 % (34.0-67.9); Platelet Count 392 x10^3/uL (163-337); Red Blood Count 3.55 x10^6/uL (4.63-6.08); Red Cell Distribution Width 18.2 % (11.6-14.4); White Blood Count 7.8 x10^3/uL (4.23-9.07)
[2024-05-16 17:34] LABS: VBG BASE EXCESS 2.6 (-2.0-2.0); VBG CARBOXYHEMOGLOBIN 3.7 % T HGB (0.0-6.9); VBG HCO3- 27.2 meq/L (22-28); VBG HEMOGLOBIN 7.6; VBG O2 SATURATION 66.4 (95-100); VBG POTASSIUM 3.7 (3.5-5.1); VBG pH 7.43 (7.32-7.42)
[2024-05-16 17:47] LABS: Hemoglobin 6.9 g/dL (13.7-17.5)
[2024-05-16 17:50] LABS: ALBUMIN 3.9 g/dL (3.5-5.0); ANION GAP 15.1 MEQ/L (5-15); BILIRUBIN,TOTAL 0.8 mg/dL (0.2-1.3); Creatinine 1 1.46 mg/dL (0.66-1.25); EST GLOMERULAR FILTRATION RATE 48.6 ML/MIN; MAGNESIUM 2.3 mg/dL (1.6-2.3); Potassium 3.8 mmol/L (3.5-5.1); Total Protein 6.9 g/dL (6.3-8.2)
[2024-05-16 17:52] LABS: INR 0.98 (0.8-3.0); PROTIME 10.7 SECONDS (9.4-12.5); PTT 39.5 SECONDS (25.1-36.5)
[2024-05-16 18:20] LABS: Slide Review 1 YES
[2024-05-16] MEDS ORDERED: PROTONIX 40 MG IV IV ONE (18:50)
[2024-05-16] MEDS ORDERED: Sodium Chloride 0.9% 500 ML 500 ML IV ONE (18:50)
[2024-05-16] MEDS: PROTONIX 40 MG IV*** 80 MG in Sodium Chloride 0.9% 500 ML 500 ML IV SCH (18:55)
[2024-05-16 19:48] LABS: ABO TYPING A; Antibody Screen NEGATIVE (NEGATIVE); RH TYPING POSITIVE
[2024-05-16 19:50] LABS: CROSS MATCH (PRBC) COMPATIBLE (COMPATIBLE)
[2024-05-16 19:52] LABS: CROSS MATCH (PRBC) COMPATIBLE (COMPATIBLE)
[2024-05-16] MEDS ORDERED: Sodium Chloride 0.9% 1000 ML 1,000 ML ONE ×2 (19:54→23:32)
[2024-05-16] MEDS ORDERED: SENOKOT 8.6 MG PO PRN (20:09)
[2024-05-16] MEDS ORDERED: VENTOLIN COMMON CANISTER IH PRN (20:09)
[2024-05-16] MEDS ORDERED: HUMALOG SQ PRN (20:14)
[2024-05-16] MEDS ORDERED: Zofran 4 MG/2 ML VIAL IV PRN (20:14)
[2024-05-16] MEDS ORDERED: TYLENOL 325 MG PO PRN (20:14)
--- NOTE | 2024-05-16 20:20 | PCM.HP ---
History of Present Illness - Chief Complaint Chief Complaint: Symptomatic anemia, shortness of breath Date: 05/16/24 History of Present Illness: is a 79 year old male with a history of chronic iron deficiency anemia presented as a referral from his primary care office for transfusion due to anemia, prompted by reported dyspnea. He denies chest pain and his dyspnea improves with rest and worsens with exertion. He has had extensive endoscopic workup for anemia which has been unremarkable, with the last scope about 5 years ago at . He has not received a transfusion in over 10 years. 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 He has reported a dry cough but no fevers or chills. In the ED, the hemoglobin was low so a request for PRBC transfusion was initiated. The patient's daughter is at bedside dring my assessment. - Review of Systems Constitutional: Fatigue, Weight Loss Eyes: No Symptoms Ears, Nose, & Throat: No Symptoms Respiratory: Cough, Short Of Breath Cardiac: No Symptoms Abdominal/Gastrointestinal: No Symptoms Genitourinary Symptoms: No Symptoms Musculoskeletal: No Symptoms Skin: No Symptoms Neurological: No Symptoms Psychological: No Symptoms Endocrine: No Symptoms Hematologic/Lymphatic: No Symptoms Immunological/Allergic: No Symptoms All Other Systems: Reviewed and Negative Medications & Allergies Home Medications: Home Medication List Losartan Potassium 50 mg PO DAILY 09/08/15 [History Confirmed 05/11/22] Metformin HCl 500 mg [Glucophage 500 MG] 500 mg PO HS 09/08/15 [History Confirmed 05/11/22] Metoprolol Succinate 75 mg PO BID 09/08/15 [History Confirmed 05/11/22] Multivitamin [Multi-Vitamin Daily] 1 each PO DAILY 09/08/15 [History Confirmed 05/11/22] Nabumetone [Relafen] 500 mg PO BID 09/08/15 [History Confirmed 05/11/22] Pyridoxine HCl (Vitamin B6) [Vitamin B-6] 100 mg PO DAILY 09/08/15 [History Confirmed 05/11/22] Senna 8.6 mg [Senokot 8.6 mg] 8.6 mg PO DAILY PRN PRN 09/08/15 [History Confirmed 05/11/22] Tamsulosin HCl 0.4 mg [Flomax 0.4 MG] 0.8 mg PO HS 09/08/15 [History Confirmed 05/11/22] Vitamin E 400 Units [Vitamin E 400 UNIT SOFTGEL] 400 unit PO DAILY 09/08/15 [History Confirmed 05/11/22] Omeprazole 20 mg PO DAILY 10/21/15 [History Confirmed 05/11/22] Famotidine 20 mg [Pepcid 20 MG] 20 mg PO DAILY 02/23/20 [History Confirmed 05/11/22] Cyanocobalamin (Vitamin B-12) [Vitamin B12] 1,000 mcg PO DAILY 09/24/20 [History Confirmed 05/11/22] PARoxetine HCL [Paroxetine HCl] 20 mg PO DAILY 09/24/20 [History Confirmed 05/11/22] Rosuvastatin Calcium 10 mg PO HS 09/24/20 [History Confirmed 05/11/22] Ubidecarenone [Co Q-10] 200 mg PO DAILY 09/24/20 [History Confirmed 05/11/22] Albuterol Sulfate [Proair Hfa] 8.5 gm IH Q4-6HPRN PRN 05/11/22 [History Confirmed 05/11/22] Amlodipine Besylate [Norvasc] 2.5 mg PO DAILY 05/11/22 [History Confirmed 05/11/22] Hanson-3/Dha/Epa/Fish Oil [Fish Oil 1,000 mg Softgel] 4,000 mg PO BID 05/11/22 [History Confirmed 05/11/22] Aspirin EC 81 mg [Ecotrin 81 mg] 81 mg PO DAILY 05/16/24 [History Confirmed 05/16/24] Clopidogrel Bisulfate [Plavix] 75 mg PO DAILY 05/16/24 [History Confirmed 05/16/24] Allergies/Adverse Reactions: Allergies Allergy/AdvReac Type Severity Reaction Status Date / Time cephalexin [From Keflex] Allergy Severe kidneys Verified 05/16/24 20:14 shut down codeine Allergy Mild Nausea and Verified 05/16/24 20:14 Vomiting Sulfa (Sulfonamide Allergy Mild hallucinati Verified 05/16/24 20:14 Antibiotics) on - Past Medical History Past Medical History: Yes Neurological History: Peripheral Neuropathy ENT History: No Pertinent History Cardiac History: Arrhythmia, Deep Vein Thrombosis, Hypertension Respiratory History: COPD, Pulmonary Embolism, Sleep Apnea Endocrine Medical History: Diabetes Type II Musculoskelatal History: Osteoarthritis GI Medical History: Gallbladder Disease History: No Pertinent History Pyscho-Social History: Depression Male Reproductive Disorders: Prostate Problems Comment: SURGERY ON L QUAD AFTER A TEAR, CODED AT [facility] DUE TO A BLOOD CLOT. RECENT BRAIN SCAN BY DR. GARIBAY, WAS PASSING OUT DUE TO SYCOPE. ABLASION OF HEART TO TX AFIB 1 MONTH AGO. PACEMAKER, DEFIBRILLATOR. 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/Mai Significant Family History: diabetes, hypertension - Social History Smoking Status: Former smoker How long have you smoked: 42 years Exposure to second hand smoke: No Alcohol: None Drug Use: none - Social Determinants of Health Will the patient participate in the screening: Declined to provide - Physical Exam Vital Signs: Vital Signs - 24 hr Temp Pulse Resp BP BP Pulse Ox 05/16/24 19:00 75 21 143/75 05/16/24 18:47 96 05/16/24 18:31 75 21 150/75 05/16/24 18:01 157/71 05/16/24 17:30 140/58 05/16/24 17:02 96 05/16/24 17:00 71 20 118/64 94 L 05/16/24 16:45 70 26 H 139/66 92 L 05/16/24 16:40 98.7 F 79 27 H 139/66 95 General Appearance: no apparent distress, alert Neurologic Exam: alert, oriented x 3, cooperative, 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 II-XII nml as tested, normal mood/affect, nml cerebellar function Eye Exam: PERRL/EOMI, eyes nml inspection Ears, Nose, Throat Exam: normal ENT inspection Neck Exam: normal inspection, non-tender, supple, full range of motion Respiratory Exam: normal breath sounds, lungs clear Cardiovascular Exam: regular rate/rhythm, normal heart sounds Gastrointestinal/Abdomen Exam: soft, normal bowel sounds Back Exam: normal range of motion Extremity Exam: normal inspection, normal range of motion Skin Exam: normal color Results - Labs Lab/Micro Results: Lab Results-Last 24 Hours 05/16/24 05/16/24 05/16/24 Range/Units 17:20 17:20 17:20 WBC 7.8 (4.23-9.07) x10^3/uL RBC 3.55 L (4.63-6.08) x10^6/uL Hgb 6.9 L* (13.7-17.5) g/dL Hct 25.7 L (40.1-51.0) % MCV 72.4 L (79.0-92.2) fL MCH 19.4 L (25.7-32.2) pg MCHC 26.8 L (32.3-36.5) g/dL RDW 18.2 H (11.6-14.4) % Plt Count 392 H (163-337) x10^3/uL MPV 10.6 (9.4-12.4) fL Gran % 65.6 (34.0-67.9) % Immature Gran % (Auto) 0.3 (0.001-0.429) % Nucleat RBC Rel Count 0.0 (0.00-0.2) % Eos # (Auto) 0.40 (0.04-0.54) x10^3/uL Immature Gran # (Auto) 0.02 (0.001-0.031) x10^3u/L Absolute Lymphs (auto) 1.10 L (1.32-3.57) x10^3/uL Absolute Monos (auto) 1.10 H (0.30-0.82) x10^3/uL Absolute Nucleated RBC 0.00 (0.00-0.012) x10^3u/L Lymphocytes % 14.1 L (21.8-53.1) % Monocytes % 14.1 H (5.3-12.2) % Eosinophils % 5.1 (0.8-7.0) % Basophils % 0.8 (0.2-1.2) % Absolute Granulocytes 5.10 (1.78-5.38) x10^3/uL Basophils # 0.06 (0.01-0.08) x10^3/uL PT 10.7 (9.4-12.5) SECONDS INR 0.98 (0.8-3.0) APTT 39.5 H (25.1-36.5) SECONDS pO2/FiO2 Ratio % VBG pH (7.32-7.42) VBG pCO2 at Pat Temp (42-55) mm/Hg VBG pO2 at Pat Temp (25-40) mm/Hg VBG HCO3 (22-28) meq/L VBG O2 Sat (Maurisio) (95-100) VBG Base Excess (-2.0-2.0) VBG Hemoglobin VBG Carboxyhemoglobin (0.0-6.9) % T HGB POC Potassium (3.5-5.1) Sodium 142 (135-145) mmol/L Potassium 3.8 (3.5-5.1) mmol/L Chloride 104 (98-107) mmol/L Carbon Dioxide 27 (22-30) mmol/L Anion Gap 15.1 H (5-15) MEQ/L BUN 15 (9-20) mg/dL Creatinine 1.46 H (0.66-1.25) mg/dL Estimated GFR 48.6 ML/MIN Glucose 115 H (74-106) mg/dL Lactic Acid (0.4-2.0) Calcium 9.0 (8.4-10.2) mg/dL Magnesium 2.3 (1.6-2.3) mg/dL Total Bilirubin 0.80 (0.2-1.3) mg/dL AST 26 (17-59) U/L ALT 17 (0-50) U/L Alkaline Phosphatase 88 (38-126) U/L Troponin I (0.000-0.033) ng/mL NT-Pro-B Natriuret Pep (<300) pg/mL Serum Total Protein 6.9 (6.3-8.2) g/dL Albumin 3.9 (3.5-5.0) g/dL Slides for Path Review YES ABO Group Rh Factor Antibody Screen (NEGATIVE) Crossmatch (COMPATIBLE) 05/16/24 05/16/24 05/16/24 Range/Units 17:20 17:20 17:23 WBC (4.23-9.07) x10^3/uL RBC (4.63-6.08) x10^6/uL Hgb (13.7-17.5) g/dL Hct (40.1-51.0) % MCV (79.0-92.2) fL MCH (25.7-32.2) pg MCHC (32.3-36.5) g/dL RDW (11.6-14.4) % Plt Count (163-337) x10^3/uL MPV (9.4-12.4) fL Gran % (34.0-67.9) % Immature Gran % (Auto) (0.001-0.429) % Nucleat RBC Rel Count (0.00-0.2) % Eos # (Auto) (0.04-0.54) x10^3/uL Immature Gran # (Auto) (0.001-0.031) x10^3u/L Absolute Lymphs (auto) (1.32-3.57) x10^3/uL Absolute Monos (auto) (0.30-0.82) x10^3/uL Absolute Nucleated RBC (0.00-0.012) x10^3u/L Lymphocytes % (21.8-53.1) % Monocytes % (5.3-12.2) % Eosinophils % (0.8-7.0) % Basophils % (0.2-1.2) % Absolute Granulocytes (1.78-5.38) x10^3/uL Basophils # (0.01-0.08) x10^3/uL PT (9.4-12.5) SECONDS INR (0.8-3.0) APTT (25.1-36.5) SECONDS pO2/FiO2 Ratio % VBG pH (7.32-7.42) VBG pCO2 at Pat Temp (42-55) mm/Hg VBG pO2 at Pat Temp (25-40) mm/Hg VBG HCO3 (22-28) meq/L VBG O2 Sat (Maurisio) (95-100) VBG Base Excess (-2.0-2.0) VBG Hemoglobin VBG Carboxyhemoglobin (0.0-6.9) % T HGB POC Potassium (3.5-5.1) Sodium (135-145) mmol/L Potassium (3.5-5.1) mmol/L Chloride (98-107) mmol/L Carbon Dioxide (22-30) mmol/L Anion Gap (5-15) MEQ/L BUN (9-20) mg/dL Creatinine (0.66-1.25) mg/dL Estimated GFR ML/MIN Glucose (74-106) mg/dL Lactic Acid 1.2 (0.4-2.0) Calcium (8.4-10.2) mg/dL Magnesium (1.6-2.3) mg/dL Total Bilirubin (0.2-1.3) mg/dL AST (17-59) U/L ALT (0-50) U/L Alkaline Phosphatase (38-126) U/L Troponin I < 0.012 (0.000-0.033) ng/mL NT-Pro-B Natriuret Pep 449 (<300) pg/mL Serum Total Protein (6.3-8.2) g/dL Albumin (3.5-5.0) g/dL Slides for Path Review ABO Group Rh Factor Antibody Screen (NEGATIVE) Crossmatch (COMPATIBLE) 05/16/24 05/16/24 05/16/24 Range/Units 17:23 18:39 18:39 WBC (4.23-9.07) x10^3/uL RBC (4.63-6.08) x10^6/uL Hgb (13.7-17.5) g/dL Hct (40.1-51.0) % MCV (79.0-92.2) fL MCH (25.7-32.2) pg MCHC (32.3-36.5) g/dL RDW (11.6-14.4) % Plt Count (163-337) x10^3/uL MPV (9.4-12.4) fL Gran % (34.0-67.9) % Immature Gran % (Auto) (0.001-0.429) % Nucleat RBC Rel Count (0.00-0.2) % Eos # (Auto) (0.04-0.54) x10^3/uL Immature Gran # (Auto) (0.001-0.031) x10^3u/L Absolute Lymphs (auto) (1.32-3.57) x10^3/uL Absolute Monos (auto) (0.30-0.82) x10^3/uL Absolute Nucleated RBC (0.00-0.012) x10^3u/L Lymphocytes % (21.8-53.1) % Monocytes % (5.3-12.2) % Eosinophils % (0.8-7.0) % Basophils % (0.2-1.2) % Absolute Granulocytes (1.78-5.38) x10^3/uL Basophils # (0.01-0.08) x10^3/uL PT (9.4-12.5) SECONDS INR (0.8-3.0) APTT (25.1-36.5) SECONDS pO2/FiO2 Ratio 21.0 % VBG pH 7.43 H (7.32-7.42) VBG pCO2 at Pat Temp 41 L (42-55) mm/Hg VBG pO2 at Pat Temp 38 (25-40) mm/Hg VBG HCO3 27.2 (22-28) meq/L VBG O2 Sat (Maurisio) 66.4 L (95-100) VBG Base Excess 2.6 H (-2.0-2.0) VBG Hemoglobin 7.6 L* VBG Carboxyhemoglobin 3.7 (0.0-6.9) % T HGB POC Potassium 3.7 (3.5-5.1) Sodium (135-145) mmol/L Potassium (3.5-5.1) mmol/L Chloride (98-107) mmol/L Carbon Dioxide (22-30) mmol/L Anion Gap (5-15) MEQ/L BUN (9-20) mg/dL Creatinine (0.66-1.25) mg/dL Estimated GFR ML/MIN Glucose (74-106) mg/dL Lactic Acid (0.4-2.0) Calcium (8.4-10.2) mg/dL Magnesium (1.6-2.3) mg/dL Total Bilirubin (0.2-1.3) mg/dL AST (17-59) U/L ALT (0-50) U/L Alkaline Phosphatase (38-126) U/L Troponin I (0.000-0.033) ng/mL NT-Pro-B Natriuret Pep (<300) pg/mL Serum Total Protein (6.3-8.2) g/dL Albumin (3.5-5.0) g/dL Slides for Path Review ABO Group A Rh Factor POSITIVE Antibody Screen NEGATIVE (NEGATIVE) Crossmatch COMPATIBLE COMPATIBLE (COMPATIBLE) - Radiology Impressions Radiology Exams & Impressions: Radiology Procedures Category Date Time Status CHEST 1 VIEW (PORTABLE) Stat Exams 05/16/24 17:01 Taken Assessment/Plan (1) Symptomatic anemia Current Visit: Yes Status: Acute Assessment & Plan: Will transfuse 2 units PRBC. Will defer to PCP regarding the indication for repeat endoscopy referral, though this may need to be considered, given that the patient is now requiring transfusion for the first time in a decade. Monitor c ounts for response. Without overt GI bleeding, will continue Plavix and ASA for now. On PPI. Code(s): D64.9 - ANEMIA, UNSPECIFIED (2) Shortness of breath Current Visit: Yes Status: Acute Assessment & Plan: Likely due to anemia. Will monitor on telemetry and also administer Lasix between the 2 units. Code(s): R06.02 - SHORTNESS OF BREATH (3) CHF (congestive heart failure) Current Visit: No Status: Acute Assessment & Plan: Will monitor on tele. Lasix as above. Continue cardiac regimen and monitor clinical course. Code(s): I50.9 - HEART FAILURE, UNSPECIFIED (4) Hyperglycemia due to type 2 diabetes mellitus Current Visit: Yes Status: Acute Assessment & Plan: Continue regimen and monitor sugars on ISS. Code(s): E11.65 - TYPE 2 DIABETES MELLITUS WITH HYPERGLYCEMIA Telemedicine Encounter - Telemedicine Encounter Telemedicine Encounter: "The entirety of this encounter was performed via Telemedicine" This visit was performed using real-time audio and video connection between my location and thepatients locationwith the assistance of a surrogateat the patients location. Written or verbal consent was obtained from the patient/guardian to perform this visit [facility] technology. Any patient questions regarding the telemedicine interaction were answered.
[2024-05-16] MEDS ORDERED: Pepcid 20 MG PO SCH (23:40)
[2024-05-16] MEDS ORDERED: FISH OIL 1,000 MG CAPSULE PO SCH (23:41)
[2024-05-16] MEDS ORDERED: Flomax 0.4 MG PO SCH (23:41)
[2024-05-16] MEDS: Flomax 0.4 MG PO SCH (23:43)
[2024-05-16] MEDS: FISH OIL 1,000 MG CAPSULE PO SCH (23:43)
[2024-05-16] MEDS: NABUMETONE 500 MG PO SCH (23:44)
[2024-05-16] MEDS: Glucophage 500 MG PO SCH (23:44)
[2024-05-16] MEDS: Toprol Xl 50 MG PO SCH (23:45)
[2024-05-16] MEDS ORDERED: Lasix 20 MG/2 ML ONE (23:45)
[2024-05-16] MEDS: Lasix 20 MG/2 ML IV ONE (23:48)
[2024-05-16] MEDS ORDERED: ZOCOR 20MG ONE (23:59)
[2024-05-17] MEDS: Sodium Chloride 0.9% 1000 ML 1,000 ML IV SCH (00:05)
[2024-05-17] MEDS: ZOCOR 20MG PO SCH (00:06)
[2024-05-17] MEDS: Flomax 0.4 MG PO SCH (00:06)
[2024-05-17] MEDS: Lopressor 25MG Tab PO SCH (00:06)
[2024-05-17] MEDS: NORVASC 5 MG PO SCH (00:06)
[2024-05-17] MEDS: Pepcid 20 MG PO SCH (00:07)
[2024-05-17] MEDS: Paxil 20 MG PO SCH (00:08)
[2024-05-17] MEDS: FISH OIL 1,000 MG CAPSULE PO SCH (00:08)
[2024-05-17] MEDS: NON-FORMULARY ITEM (Rosuvastatin Calcium [Rosuvastatin Calcium] 10 MG Tablet) PO SCH (00:16)
[2024-05-17 05:11] LABS: Hematocrit 29.4 % (40.1-51.0); Hemoglobin 8.4 g/dL (13.7-17.5); Mean Cell Volume 73.9 fL (79.0-92.2); Mean Corpuscular Hemoglobin 21.1 pg (25.7-32.2); Mean Corpuscular Hgb Concent. 28.6 g/dL (32.3-36.5); Mean Platelet Volume 11.2 fL (9.4-12.4); Platelet Count 402 x10^3/uL (163-337); Red Blood Count 3.98 x10^6/uL (4.63-6.08); Red Cell Distribution Width 18.4 % (11.6-14.4); White Blood Count 7.8 x10^3/uL (4.23-9.07)
[2024-05-17 05:36] LABS: Calcium 9.3 mg/dL (8.4-10.2); Creatinine 1 1.54 mg/dL (0.66-1.25); EST GLOMERULAR FILTRATION RATE 45.6 ML/MIN; PREALBUMIN 21.59 mg/dL (17.6-36.0); Potassium 3.7 mmol/L (3.5-5.1)
[2024-05-17 06:52] LABS: Slide Review YES
[2024-05-17 07:16] VITALS: BP 124/62; PULSE 71; RESP 16; TEMP 98; O2SAT 94
--- NOTE | 2024-05-17 08:54 | XRAY ---
Indication: Cough. Short of breath. Comparison: February 22, 2024 Portable chest remains inflated and clear. Heart not enlarged again with left pacemaker. Bony thorax intact again with osteopenia and degenerative changes. Impression: Continued nonacute chest with chronic features.
[2024-05-17] MEDS ORDERED: NON-FORMULARY ITEM (Cyanocobalamin (Vitamin B-12) [Vitamin B12] 2,500 MCG Tablet) PO SCH (10:00)
[2024-05-17] MEDS ORDERED: NON-FORMULARY ITEM (Amlodipine Besylate [Norvasc] 2.5 MG Tablet) PO SCH (10:00)
[2024-05-17] MEDS ORDERED: Pepcid 20 MG PO SCH (10:00)
[2024-05-17] MEDS ORDERED: Vitamin E 400 UNIT SOFTGEL PO SCH (10:00)
[2024-05-17] MEDS ORDERED: NON-FORMULARY ITEM (Ubidecarenone [Co Q-10] 200 MG Capsule) PO SCH (10:00)
[2024-05-17] MEDS ORDERED: Vitamin B-6 (Pyridoxine) 100 MG PO SCH (10:00)
[2024-05-17] MEDS ORDERED: Paxil 20 MG PO SCH ×2 (10:00→22:00)
[2024-05-17] MEDS ORDERED: NON-FORMULARY ITEM (Losartan Potassium [Losartan Potassium] 100 MG Tablet) PO SCH (10:00)
--- NOTE | 2024-05-17 10:19 | PCM.DS ---
Discharge Summary Date of Admission: 05/16/24 19:43 Date of Discharge: 05/17/24 Admitting Physician: EDUARD GUILLORY MD Primary Care Provider: NSARA,GONSALO Allergies Allergies cephalexin [From Keflex] Allergy (Severe, Verified 05/16/24 20:14) kidneys shut down codeine Allergy (Mild, Verified 05/16/24 20:14) Nausea and Vomiting Sulfa (Sulfonamide Antibiotics) Allergy (Mild, Verified 05/16/24 20:14) hallucination Hospital Summary - Hospital Course Hospital Course: is a 79 year old male with a history of chronic iron deficiency anemia. He presented on 05/16/24 as a referral from his primary care office for transfusion due to anemia, prompted by reported dyspnea. He denies chest pain and his dyspnea improves with rest and worsens with exertion. He has had extensive endoscopic workup for anemia which has been unremarkable, with the last scope about 5 years ago at . He has not received a transfusion in over 10 years. He denies hematemesis, longterm weight loss (he has lost 30 pounds over the past 2 months after starting on a diabetic medication), dysphagia, odynophagia, melena, hematochezia, or change in stool caliber. He has reported a dry cough but no fevers or chills. In the ED, the hemoglobin was low at 6.9 so a request for PRBC transfusion was initiated. After 2 units PRBC last night Hgb 8.4 today. He states he feels much better and no longer SOB. He is wanting to d/c today. Restarted pt on ferrous sulfate daily. He states he was taken off multiple vitamin as he was taking too many. Will have pt f/u with PCP OP. He denies any further concerns at this time. - Vitals & Intake/Output Vital Signs: Vital Signs Temperature 98.0 F 05/17/24 07:15 Pulse Rate 71 05/17/24 07:15 Respiratory Rate 16 05/17/24 07:15 Blood Pressure 124/62 05/17/24 07:15 O2 Sat by Pulse Oximetry 94 L 05/17/24 07:15 Intake & Output: Intake & Output 05/14/24 05/15/24 05/16/24 05/17/24 11:59 11:59 11:59 11:59 Intake Total 1653 Output Total 2014 Balance -361 Weight 134 kg - Lab Result Diagrams: 05/17/24 05:00 05/17/24 05:00 Lab Results-Last 24 Hrs: Lab Results-Last 24 Hours 05/16/24 05/16/24 05/16/24 Range/Units 17:20 17:20 17:20 WBC 7.8 (4.23-9.07) x10^3/uL RBC 3.55 L (4.63-6.08) x10^6/uL Hgb 6.9 L* (13.7-17.5) g/dL Hct 25.7 L (40.1-51.0) % MCV 72.4 L (79.0-92.2) fL MCH 19.4 L (25.7-32.2) pg MCHC 26.8 L (32.3-36.5) g/dL RDW 18.2 H (11.6-14.4) % Plt Count 392 H (163-337) x10^3/uL MPV 10.6 (9.4-12.4) fL Gran % 65.6 (34.0-67.9) % Immature Gran % (Auto) 0.3 (0.001-0.429) % Nucleat RBC Rel Count 0.0 (0.00-0.2) % Eos # (Auto) 0.40 (0.04-0.54) x10^3/uL Immature Gran # (Auto) 0.02 (0.001-0.031) x10^3u/L Absolute Lymphs (auto) 1.10 L (1.32-3.57) x10^3/uL Absolute Monos (auto) 1.10 H (0.30-0.82) x10^3/uL Absolute Nucleated RBC 0.00 (0.00-0.012) x10^3u/L Lymphocytes % 14.1 L (21.8-53.1) % Monocytes % 14.1 H (5.3-12.2) % Eosinophils % 5.1 (0.8-7.0) % Basophils % 0.8 (0.2-1.2) % Absolute Granulocytes 5.10 (1.78-5.38) x10^3/uL Basophils # 0.06 (0.01-0.08) x10^3/uL PT 10.7 (9.4-12.5) SECONDS INR 0.98 (0.8-3.0) APTT 39.5 H (25.1-36.5) SECONDS pO2/FiO2 Ratio % VBG pH (7.32-7.42) VBG pCO2 at Pat Temp (42-55) mm/Hg VBG pO2 at Pat Temp (25-40) mm/Hg VBG HCO3 (22-28) meq/L VBG O2 Sat (Maurisio) (95-100) VBG Base Excess (-2.0-2.0) VBG Hemoglobin VBG Carboxyhemoglobin (0.0-6.9) % T HGB POC Potassium (3.5-5.1) Sodium 142 (135-145) mmol/L Potassium 3.8 (3.5-5.1) mmol/L Chloride 104 (98-107) mmol/L Carbon Dioxide 27 (22-30) mmol/L Anion Gap 15.1 H (5-15) MEQ/L BUN 15 (9-20) mg/dL Creatinine 1.46 H (0.66-1.25) mg/dL Estimated GFR 48.6 ML/MIN Glucose 115 H (74-106) mg/dL POC Glucometer (74 to 106) mg/dL Lactic Acid (0.4-2.0) Calcium 9.0 (8.4-10.2) mg/dL Magnesium 2.3 (1.6-2.3) mg/dL Total Bilirubin 0.80 (0.2-1.3) mg/dL AST 26 (17-59) U/L ALT 17 (0-50) U/L Alkaline Phosphatase 88 (38-126) U/L Troponin I (0.000-0.033) ng/mL NT-Pro-B Natriuret Pep (<300) pg/mL Serum Total Protein 6.9 (6.3-8.2) g/dL Albumin 3.9 (3.5-5.0) g/dL Prealbumin (17.6-36.0) mg/dL Slides for Path Review YES ABO Group Rh Factor Antibody Screen (NEGATIVE) Crossmatch (COMPATIBLE) 05/16/24 05/16/24 05/16/24 Range/Units 17:20 17:20 17:23 WBC (4.23-9.07) x10^3/uL RBC (4.63-6.08) x10^6/uL Hgb (13.7-17.5) g/dL Hct (40.1-51.0) % MCV (79.0-92.2) fL MCH (25.7-32.2) pg MCHC (32.3-36.5) g/dL RDW (11.6-14.4) % Plt Count (163-337) x10^3/uL MPV (9.4-12.4) fL Gran % (34.0-67.9) % Immature Gran % (Auto) (0.001-0.429) % Nucleat RBC Rel Count (0.00-0.2) % Eos # (Auto) (0.04-0.54) x10^3/uL Immature Gran # (Auto) (0.001-0.031) x10^3u/L Absolute Lymphs (auto) (1.32-3.57) x10^3/uL Absolute Monos (auto) (0.30-0.82) x10^3/uL Absolute Nucleated RBC (0.00-0.012) x10^3u/L Lymphocytes % (21.8-53.1) % Monocytes % (5.3-12.2) % Eosinophils % (0.8-7.0) % Basophils % (0.2-1.2) % Absolute Granulocytes (1.78-5.38) x10^3/uL Basophils # (0.01-0.08) x10^3/uL PT (9.4-12.5) SECONDS INR (0.8-3.0) APTT (25.1-36.5) SECONDS pO2/FiO2 Ratio % VBG pH (7.32-7.42) VBG pCO2 at Pat Temp (42-55) mm/Hg VBG pO2 at Pat Temp (25-40) mm/Hg VBG HCO3 (22-28) meq/L VBG O2 Sat (Maurisio) (95-100) VBG Base Excess (-2.0-2.0) VBG Hemoglobin VBG Carboxyhemoglobin (0.0-6.9) % T HGB POC Potassium (3.5-5.1) Sodium (135-145) mmol/L Potassium (3.5-5.1) mmol/L Chloride (98-107) mmol/L Carbon Dioxide (22-30) mmol/L Anion Gap (5-15) MEQ/L BUN (9-20) mg/dL Creatinine (0.66-1.25) mg/dL Estimated GFR ML/MIN Glucose (74-106) mg/dL POC Glucometer (74 to 106) mg/dL Lactic Acid 1.2 (0.4-2.0) Calcium (8.4-10.2) mg/dL Magnesium (1.6-2.3) mg/dL Total Bilirubin (0.2-1.3) mg/dL AST (17-59) U/L ALT (0-50) U/L Alkaline Phosphatase (38-126) U/L Troponin I < 0.012 (0.000-0.033) ng/mL NT-Pro-B Natriuret Pep 449 (<300) pg/mL Serum Total Protein (6.3-8.2) g/dL Albumin (3.5-5.0) g/dL Prealbumin (17.6-36.0) mg/dL Slides for Path Review ABO Group Rh Factor Antibody Screen (NEGATIVE) Crossmatch (COMPATIBLE) 05/16/24 05/16/24 05/16/24 Range/Units 17:23 18:39 18:39 WBC (4.23-9.07) x10^3/uL RBC (4.63-6.08) x10^6/uL Hgb (13.7-17.5) g/dL Hct (40.1-51.0) % MCV (79.0-92.2) fL MCH (25.7-32.2) pg MCHC (32.3-36.5) g/dL RDW (11.6-14.4) % Plt Count (163-337) x10^3/uL MPV (9.4-12.4) fL Gran % (34.0-67.9) % Immature Gran % (Auto) (0.001-0.429) % Nucleat RBC Rel Count (0.00-0.2) % Eos # (Auto) (0.04-0.54) x10^3/uL Immature Gran # (Auto) (0.001-0.031) x10^3u/L Absolute Lymphs (auto) (1.32-3.57) x10^3/uL Absolute Monos (auto) (0.30-0.82) x10^3/uL Absolute Nucleated RBC (0.00-0.012) x10^3u/L Lymphocytes % (21.8-53.1) % Monocytes % (5.3-12.2) % Eosinophils % (0.8-7.0) % Basophils % (0.2-1.2) % Absolute Granulocytes (1.78-5.38) x10^3/uL Basophils # (0.01-0.08) x10^3/uL PT (9.4-12.5) SECONDS INR (0.8-3.0) APTT (25.1-36.5) SECONDS pO2/FiO2 Ratio 21.0 % VBG pH 7.43 H (7.32-7.42) VBG pCO2 at Pat Temp 41 L (42-55) mm/Hg VBG pO2 at Pat Temp 38 (25-40) mm/Hg VBG HCO3 27.2 (22-28) meq/L VBG O2 Sat (Maurisio) 66.4 L (95-100) VBG Base Excess 2.6 H (-2.0-2.0) VBG Hemoglobin 7.6 L* VBG Carboxyhemoglobin 3.7 (0.0-6.9) % T HGB POC Potassium 3.7 (3.5-5.1) Sodium (135-145) mmol/L Potassium (3.5-5.1) mmol/L Chloride (98-107) mmol/L Carbon Dioxide (22-30) mmol/L Anion Gap (5-15) MEQ/L BUN (9-20) mg/dL Creatinine (0.66-1.25) mg/dL Estimated GFR ML/MIN Glucose (74-106) mg/dL POC Glucometer (74 to 106) mg/dL Lactic Acid (0.4-2.0) Calcium (8.4-10.2) mg/dL Magnesium (1.6-2.3) mg/dL Total Bilirubin (0.2-1.3) mg/dL AST (17-59) U/L ALT (0-50) U/L Alkaline Phosphatase (38-126) U/L Troponin I (0.000-0.033) ng/mL NT-Pro-B Natriuret Pep (<300) pg/mL Serum Total Protein (6.3-8.2) g/dL Albumin (3.5-5.0) g/dL Prealbumin (17.6-36.0) mg/dL Slides for Path Review ABO Group A Rh Factor POSITIVE Antibody Screen NEGATIVE (NEGATIVE) Crossmatch COMPATIBLE COMPATIBLE (COMPATIBLE) 05/16/24 05/17/24 05/17/24 Range/Units 21:52 05:00 05:00 WBC 7.8 (4.23-9.07) x10^3/uL RBC 3.98 L (4.63-6.08) x10^6/uL Hgb 8.4 L D (13.7-17.5) g/dL Hct 29.4 L (40.1-51.0) % MCV 73.9 L (79.0-92.2) fL MCH 21.1 L (25.7-32.2) pg MCHC 28.6 L (32.3-36.5) g/dL RDW 18.4 H (11.6-14.4) % Plt Count 402 H (163-337) x10^3/uL MPV 11.2 (9.4-12.4) fL Gran % (34.0-67.9) % Immature Gran % (Auto) (0.001-0.429) % Nucleat RBC Rel Count (0.00-0.2) % Eos # (Auto) (0.04-0.54) x10^3/uL Immature Gran # (Auto) (0.001-0.031) x10^3u/L Absolute Lymphs (auto) (1.32-3.57) x10^3/uL Absolute Monos (auto) (0.30-0.82) x10^3/uL Absolute Nucleated RBC (0.00-0.012) x10^3u/L Lymphocytes % (21.8-53.1) % Monocytes % (5.3-12.2) % Eosinophils % (0.8-7.0) % Basophils % (0.2-1.2) % Absolute Granulocytes (1.78-5.38) x10^3/uL Basophils # (0.01-0.08) x10^3/uL PT (9.4-12.5) SECONDS INR (0.8-3.0) APTT (25.1-36.5) SECONDS pO2/FiO2 Ratio % VBG pH (7.32-7.42) VBG pCO2 at Pat Temp (42-55) mm/Hg VBG pO2 at Pat Temp (25-40) mm/Hg VBG HCO3 (22-28) meq/L VBG O2 Sat (Maurisio) (95-100) VBG Base Excess (-2.0-2.0) VBG Hemoglobin VBG Carboxyhemoglobin (0.0-6.9) % T HGB POC Potassium (3.5-5.1) Sodium (135-145) mmol/L Potassium (3.5-5.1) mmol/L Chloride (98-107) mmol/L Carbon Dioxide (22-30) mmol/L Anion Gap (5-15) MEQ/L BUN (9-20) mg/dL Creatinine (0.66-1.25) mg/dL Estimated GFR ML/MIN Glucose (74-106) mg/dL POC Glucometer 134 H (74 to 106) mg/dL Lactic Acid (0.4-2.0) Calcium (8.4-10.2) mg/dL Magnesium (1.6-2.3) mg/dL Total Bilirubin (0.2-1.3) mg/dL AST (17-59) U/L ALT (0-50) U/L Alkaline Phosphatase (38-126) U/L Troponin I < 0.012 (0.000-0.033) ng/mL NT-Pro-B Natriuret Pep (<300) pg/mL Serum Total Protein (6.3-8.2) g/dL Albumin (3.5-5.0) g/dL Prealbumin (17.6-36.0) mg/dL Slides for Path Review YES ABO Group Rh Factor Antibody Screen (NEGATIVE) Crossmatch (COMPATIBLE) 05/17/24 05/17/24 05/17/24 Range/Units 05:00 07:32 08:21 WBC (4.23-9.07) x10^3/uL RBC (4.63-6.08) x10^6/uL Hgb (13.7-17.5) g/dL Hct (40.1-51.0) % MCV (79.0-92.2) fL MCH (25.7-32.2) pg MCHC (32.3-36.5) g/dL RDW (11.6-14.4) % Plt Count (163-337) x10^3/uL MPV (9.4-12.4) fL Gran % (34.0-67.9) % Immature Gran % (Auto) (0.001-0.429) % Nucleat RBC Rel Count (0.00-0.2) % Eos # (Auto) (0.04-0.54) x10^3/uL Immature Gran # (Auto) (0.001-0.031) x10^3u/L Absolute Lymphs (auto) (1.32-3.57) x10^3/uL Absolute Monos (auto) (0.30-0.82) x10^3/uL Absolute Nucleated RBC (0.00-0.012) x10^3u/L Lymphocytes % (21.8-53.1) % Monocytes % (5.3-12.2) % Eosinophils % (0.8-7.0) % Basophils % (0.2-1.2) % Absolute Granulocytes (1.78-5.38) x10^3/uL Basophils # (0.01-0.08) x10^3/uL PT (9.4-12.5) SECONDS INR (0.8-3.0) APTT (25.1-36.5) SECONDS pO2/FiO2 Ratio % VBG pH (7.32-7.42) VBG pCO2 at Pat Temp (42-55) mm/Hg VBG pO2 at Pat Temp (25-40) mm/Hg VBG HCO3 (22-28) meq/L VBG O2 Sat (Maurisio) (95-100) VBG Base Excess (-2.0-2.0) VBG Hemoglobin VBG Carboxyhemoglobin (0.0-6.9) % T HGB POC Potassium (3.5-5.1) Sodium 139 (135-145) mmol/L Potassium 3.7 (3.5-5.1) mmol/L Chloride 101 (98-107) mmol/L Carbon Dioxide 29 (22-30) mmol/L Anion Gap 12.0 (5-15) MEQ/L BUN 15 (9-20) mg/dL Creatinine 1.54 H (0.66-1.25) mg/dL Estimated GFR 45.6 ML/MIN Glucose 155 H (74-106) mg/dL POC Glucometer 149 H (74 to 106) mg/dL Lactic Acid (0.4-2.0) Calcium 9.3 (8.4-10.2) mg/dL Magnesium (1.6-2.3) mg/dL Total Bilirubin (0.2-1.3) mg/dL AST (17-59) U/L ALT (0-50) U/L Alkaline Phosphatase (38-126) U/L Troponin I < 0.012 (0.000-0.033) ng/mL NT-Pro-B Natriuret Pep (<300) pg/mL Serum Total Protein (6.3-8.2) g/dL Albumin (3.5-5.0) g/dL Prealbumin 21.59 (17.6-36.0) mg/dL Slides for Path Review ABO Group Rh Factor Antibody Screen (NEGATIVE) Crossmatch (COMPATIBLE) Micro Results-Entire Visit: Accuchecks Date 05/17/24 Time 07:38 - Radiology Exams Ordered Rad Exams-Entire Visit: Radiology Procedures Category Date Time Status CHEST 1 VIEW (PORTABLE) Stat Exams 05/16/24 17:01 Completed - Procedures and Test Procedures and Tests throughout Hospitalization: Therapy Orders & Screens 05/16/24 21:04 Respiratory Therapy Assessment DAILY Comment: Diagnosis: Symptomatic anemia, shortness of breath 05/16/24 21:05 Oxygen Nasal Cannula 2 lpm Comment: Diagnosis: Symptomatic anemia, shortness of breath Discharge Exam General Appearance: no apparent distress, alert, obese Neurologic Exam: alert, oriented x 3, cooperative, normal mood/affect, nml cerebellar function, sensation nml, No motor deficits Eye Exam: PERRL, EOMI, eyes nml inspection Ears, Nose, Throat Exam: normal ENT inspection, pharynx normal, moist mucous membranes Neck Exam: normal inspection, non-tender, supple, full range of motion Respiratory Exam: normal breath sounds, lungs clear, No respiratory distress Cardiovascular Exam: regular rate/rhythm, normal heart sounds Gastrointestinal/Abdomen Exam: soft, No tenderness, No mass Male Genitalia Exam: deferred Rectal Exam: deferred Back Exam: normal inspection, normal range of motion, No CVA tenderness, No vertebral tenderness Extremity Exam: normal inspection, normal range of motion Skin Exam: normal color, warm, dry, pale Wound Assessment: Skin/Wound Assessment Wound/Incision Assessment Start: 05/16/24 21 :03 Text: Status: Active Freq: Q6H Protocol: Document 05/17/24 08:00 VB (Rec: 05/17/24 09:05 VB [id number]) Wound Photo Comment: photos in chart from admission Final Diagnosis/Problem List - Final Discharge Diagnosis/Problem (1) Symptomatic anemia Current Visit: Yes Status: Acute Assessment & Plan: - Hgb on admission 6.9 - 2units PRBC last night - HGb 8.4 today. - sxs resolved- pt wants to d/c. - start ferrous sulfate daily Code(s): D64.9 - ANEMIA, UNSPECIFIED (2) Shortness of breath Current Visit: Yes Status: Resolved Assessment & Plan: - resolved - 2:2 anemia - RA 94% Code(s): R06.02 - SHORTNESS OF BREATH (3) CHF (congestive heart failure) Current Visit: No Status: Acute Assessment & Plan: -Will monitor on tele. - Lasix as above. - Continue cardiac regimen and monitor clinical course. Code(s): I50.9 - HEART FAILURE, UNSPECIFIED (4) Hyperglycemia due to type 2 diabetes mellitus Current Visit: Yes Status: Acute Assessment & Plan: -Continue regimen and monitor sugars on ISS. - Hgb A1C pending Code(s): E11.65 - TYPE 2 DIABETES MELLITUS WITH HYPERGLYCEMIA (5) Obesity (BMI 30-39.9) Current Visit: Yes Status: Chronic Assessment & Plan: - advised diet and exercise control. Code(s): E66.9 - OBESITY, UNSPECIFIED - Discharge Discharge Date: 05/17/24 Disposition: Home, Self-Care Condition: Stable Prescriptions: New Ferrous Sulfate 325 mg [Feosol 325 mg] 325 mg PO DAILY 30 Days #30 tablet Continue Senna 8.6 mg [Senokot 8.6 mg] 8.6 mg PO DAILY PRN PRN PRN Reason: Constipation Tamsulosin HCl 0.4 mg [Flomax 0.4 MG] 0.4 mg PO HS Multivitamin [Multi-Vitamin Daily] 1 each PO DAILY Famotidine 20 mg [Pepcid 20 MG] 40 mg PO QHS Rosuvastatin Calcium 10 mg PO HS PARoxetine HCL [Paroxetine HCl] 20 mg PO QHS Mobile-3/Dha/Epa/Fish Oil [Fish Oil 1,000 mg Softgel] 2,000 mg PO BID Amlodipine Besylate [Norvasc] 5 mg PO QHS Albuterol Sulfate [Proair Hfa] 8.5 gm IH Q4-6HPRN PRN PRN Reason: Shortness Of Breath Clopidogrel Bisulfate [Plavix] 75 mg PO DAILY Aspirin EC 81 mg [Ecotrin 81 mg] 81 mg PO DAILY Omeprazole 20 mg PO DAILY Dapagliflozin Propanediol [Farxiga] 10 mg PO DAILY Metoprolol Tartrate 25 mg [Lopressor 25MG Tab] 25 mg PO BID Losartan Potassium 50 mg [Cozaar 50 MG] 50 mg PO DAILY Insulin Degludec [Tresiba Flextouch U-100] 30 units SQ QHS Instructions: Anemia caused by low iron, Blood transfusion Follow up with: GONSALO HAMMONDS MD [Primary Care Provider] - 05/24/24 10:30 am ([facility])
[2024-05-17] MEDS: PLAVIX Tablet PO SCH (10:32)
[2024-05-17] MEDS: THERAGRAN MULTIVITAMIN PO SCH (10:32)
[2024-05-17] MEDS: Cozaar 50 MG PO SCH (10:32)
[2024-05-17] MEDS: ECOTRIN 81 MG PO SCH (10:32)
[2024-05-17] MEDS: FEOSOL 325 MG PO SCH (10:32)
[2024-05-17] MEDS: Protonix 40MG Tablet PO SCH (10:32)
== END 2024-05-17 11:13 | disposition home or self-care (01) ==
LOC: ED 15:41 → MED SURG 19:43
PROVIDERS: ADMIT Internal Medicine; ATTEND Internal Medicine
DX: D64.9 Anemia, unspecified (principal); R06.02 Shortness of breath; I11.0 Hypertensive heart disease with heart failure; I50.9 Heart failure, unspecified; E11.65 Type 2 diabetes mellitus with hyperglycemia; E66.9 Obesity, unspecified; Z79.01 Long term (current) use of anticoagulants; Z79.899 Other long term (current) drug therapy; Z86.718 Personal history of other venous thrombosis and embolism
CPT/HCPCS: 36000; 36415; 36430; 71045; 80048; 80053; 82805; 82947; 83036; 83605; 83735; 83880; 84134; 84484; 85025; 85027; 85610; 85730; 86850; 86900; 86901; 86922; 93005; 93041; 93268; 94760; 94762; 96365; 99285; G0378; P9016; J1940; A9270-GY

== ENCOUNTER 2024-05-30 10:52 | Observation (INO) | payer MEDICARE ==
--- NOTE | 2024-05-30 11:18 | ERPHSYRPT ---
- History of Present Illness Time Seen by Provider: 05/30/24 11:05 Source: patient Exam Limitations: no limitations Patient Subjective Stated Complaint: C/O BLE numbness for approx the past 2 weeks. Patient indicates the numbness started in his feet and is progressing up his legs now. Triage Nursing Assessment: Patient arrived by ambulance. He is alert and oriented. NO SOB. He is pale. No edema. Small, scattered scabs noted to BUE. Able to hold BLE off of the bed without difficulties. Patient indicates he can move his BLE without any issues he just can't take more than 3 steps on them because of the numbness and weakness. Physician History: 79-year-old male presents to our ED via EMS. Patient was brought in from home for evaluation of generalized weakness. Patient reports that he had a blood transfusion on May 16. Since then he has been experiencing numbness of his lower extremities. Patient states the numbness has gotten progressively worse. Numbness associated with weakness as well. Patient reports that he can only ambulate 3 steps before needing to sit down. No associated pain. Patient reports that he has a history of anemia. He was last admitted for symptomatic anemia and transfused approximately 2 to 3 weeks ago. Patient denies obvious blood loss but reports that his doctors are requesting that he obtain a colonoscopy which he has not done at this time. Daughter at bedside. They voiced no other complaints or concerns at this time. Portions of this note were created with voice recognition technology. There may be grammatical, spelling, punctuation or sound alike errors Timing/Duration: today Severity: moderate Associated Symptoms: other (numbness) Allergies/Adverse Reactions: cephalexin [From Keflex] Allergy (Severe, Verified 05/16/24 20:14) kidneys shut down codeine Allergy (Mild, Verified 05/16/24 20:14) Nausea and Vomiting Sulfa (Sulfonamide Antibiotics) Allergy (Mild, Verified 05/16/24 20:14) hallucination Home Medications: Multivitamin [Multi-Vitamin Daily] 1 each PO DAILY 09/08/15 [History] Senna 8.6 mg [Senokot 8.6 mg] 8.6 mg PO HS 09/08/15 [History] Tamsulosin HCl 0.4 mg [Flomax 0.4 MG] 0.4 mg PO HS 09/08/15 [History] Famotidine 20 mg [Pepcid 20 MG] 40 mg PO QHS 02/23/20 [History] PARoxetine HCL [Paroxetine HCl] 20 mg PO QHS 09/24/20 [History] Rosuvastatin Calcium 10 mg PO HS 09/24/20 [History] Albuterol Sulfate [Proair Hfa] 8.5 gm IH Q4-6HPRN PRN 05/11/22 [History] Amlodipine Besylate [Norvasc] 5 mg PO QHS 05/11/22 [History] [place]-3/Dha/Epa/Fish Oil [Fish Oil 1,000 mg Softgel] 2,000 mg PO BID 05/11/22 [History] Aspirin EC 81 mg [Ecotrin 81 mg] 81 mg PO DAILY 05/16/24 [History] Clopidogrel Bisulfate [Plavix] 75 mg PO DAILY 05/16/24 [History] Dapagliflozin Propanediol [Farxiga] 10 mg PO DAILY 05/16/24 [History] Insulin Degludec [Tresiba Flextouch U-100] 30 units SQ QHS 05/16/24 [History] Losartan Potassium 50 mg [Cozaar 50 MG] 50 mg PO DAILY 05/16/24 [History] Metoprolol Tartrate 25 mg [Lopressor 25MG Tab] 25 mg PO BID 05/16/24 [History] Omeprazole 20 mg PO DAILY 05/16/24 [History] Pnv,Calcium 72/Iron/Folic Acid [ Vitamin Plus Low Iron] 1 tab PO HS 04/15 [History] Pnv,Calcium 72/Iron/Folic Acid [ Vitamin Plus Low Iron] 2 tab PO DAILY 05/30/24 [History] Hx Tetanus, Diphtheria Vaccination/Date Given: Yes Hx Influenza Vaccination/Date Given: Yes Hx Pneumococcal Vaccination/Date Given: Yes Immunizations Up to Date: Yes Travel Risk - International Travel Have you traveled outside of the country in past 3 weeks: No - Emerging Infectious Disease Are you exhibiting symptoms associated with any current EIDs: No Symptoms: Cough: New Onset, Shortness of Breath Comment: cough and sob present intermittently at baseline d/t copd - Review of Systems Constitutional: No Symptoms, No Fever, No Chills Eyes: No Symptoms Ears, Nose, & Throat: No Symptoms Respiratory: No Symptoms, No Cough, No Dyspnea Cardiac: No Symptoms, No Chest Pain, No Edema, No Syncope Abdominal/Gastrointestinal: No Symptoms, No Abdominal Pain, No Nausea, No Vomiting, No Diarrhea Genitourinary Symptoms: No Symptoms, No Dysuria Musculoskeletal: No Symptoms, No Back Pain, No Neck Pain Skin: No Symptoms, No Rash Neurological: No Symptoms, No Dizziness, No Focal Weakness, No Sensory Changes Psychological: No Symptoms Endocrine: No Symptoms Hematologic/Lymphatic: No Symptoms Immunological/Allergic: No Symptoms All Other Systems: Reviewed and Negative - Past Medical History Pertinent Past Medical History: Yes Neurological History: Peripheral Neuropathy ENT History: No Pertinent History Cardiac History: Arrhythmia, Deep Vein Thrombosis, High Cholesterol, Hypertension Respiratory History: COPD, Pulmonary Embolism, Sleep Apnea Endocrine Medical History: Diabetes Type II Musculoskeletal History: Osteoarthritis GI Medical History: GERD, Gallbladder Disease History: No Pertinent History Psycho-Social History: Depression Male Reproductive Disorders: Prostate Problems Other Medical History: blood clot, anemia - Past Surgical History Past Surgical History: Yes Neuro Surgical History: No Pertinent History Cardiac: Cardiac Catheterization, Internal Defibrillator, Pacemaker Respiratory: No Pertinent History Gastrointestinal: Cholecystectomy Genitourinary: No Pertinent History Musculoskeletal: Orthopedic Surgery Male Surgical History: Other Other Surgical History: dental surgical extractions,left knee, tear of tendons repaired, watchman procedure in December 2023, [facility]: Dr. Galeano/Mai, Significant Family History: diabetes, hypertension - Social History Smoking Status: Former smoker How long have you smoked: 42 years Exposure to second hand smoke: No Alcohol Use: None Drug Use: none Patient Lives Alone: No - Social Determinants of Health Will the patient participate in the screening: Yes Do you worry about a steady place to live?: No Do you have any problems with any of the following?: No known problems In the past 12 months,have you had to go without utilities?: No Transportation Issues: No Has anyone in your support network made you feel unsafe?: No Have you or anyone in your house had to go without enough: No - Nursing Vital Signs Nursing Vital Signs: Initial Vital Signs Temperature 97.5 F 05/30/24 10:57 Pulse Rate 65 05/30/24 10:57 Respiratory Rate 17 05/30/24 10:57 Blood Pressure 156/76 05/30/24 10:57 O2 Sat by Pulse Oximetry 99 05/30/24 10:57 Pain Scale Pain Intensity 0 - Physical Exam General Appearance: no apparent distress, alert, other (Pale appearance) Eye Exam: PERRL/EOMI, eyes nml inspection Ears, Nose, Throat Exam: normal ENT inspection, TMs normal, pharynx normal, moist mucous membranes Neck Exam: normal inspection, non-tender, supple, full range of motion Respiratory Exam: normal breath sounds, lungs clear, airway intact, No respiratory distress Cardiovascular Exam: regular rate/rhythm, normal heart sounds, normal peripheral pulses Gastrointestinal/Abdomen Exam: soft, normal bowel sounds, No tenderness, No mass Back Exam: normal inspection, normal range of motion, No CVA tenderness, No vertebral tenderness Extremity Exam: normal inspection, normal range of motion, pelvis stable Neurologic Exam: alert, oriented x 3, cooperative, normal mood/affect, nml cerebellar function, nml station & gait, sensation nml, No motor deficits Skin Exam: normal color, warm, dry, No rash Lymphatic Exam: No adenopathy SpO2 Interpretation: normal SpO2: 99 O2 Delivery: Room Air - Course Nursing assessment & vital signs reviewed: Yes EKG Interpreted by Me: RATE (66), Sinus Rhythm, NORMAL AXIS, NORMAL INTERVALS, Right Bundle Branch Block Ordered Tests: Active Orders 24 hr Category Date Time Status Bedrest ROUTINE Activity 05/30/24 14:02 Active Call Admit Doctor for Orders ON ADMISSION Care 05/30/24 14:02 Active Fire Safety Manager ROUTINE Care 05/30/24 14:02 Active Fire Safety Manager STAT Care 05/30/24 11:27 Completed Code Status Order ROUTINE Care 05/30/24 14:02 Active EKG-ER Only STAT Care 05/30/24 11:27 Completed IV Insertion STAT Care 05/30/24 11:27 Completed Neuro Checks Q4H Care 05/30/24 14:[address] in Observation ROUTINE Care 05/30/24 14:02 Active Pulse Oximetry (ED) STAT Care 05/30/24 11:27 Completed Telemetry q6h Care 05/30/24 14:02 Active CBC W DIFF Stat Lab 05/30/24 11:27 Completed CMP Stat Lab 05/30/24 11:27 Completed MAG [MAGNESIUM] Stat Lab 05/30/24 11:56 Completed PROTIME WITH INR Stat Lab 05/30/24 11:27 Completed PTT Stat Lab 05/30/24 11:27 Completed TROPONIN Q4H Lab 05/30/24 11:30 Completed TROPONIN Q4H Lab 05/30/24 14:50 Completed TROPONIN Q4H Lab 05/30/24 18:21 Completed UA W/RFX UR CULTURE Stat Lab 05/30/24 12:09 Completed Pulse Oximetry .spot check RT 05/30/24 14:02 Active Medication Summary Generic Name Dose Route Start Last Admin Trade Name Freq PRN Reason Stop Dose Admin Albuterol Sulfate 2 puff 05/30/24 15:15 Albuterol Common Canister Inhaler IH 06/29/24 15:14 Q4H PRN PRN SHORTNESS OF BREATH Albuterol/Ipratropium 3 ml 05/30/24 19:00 05/30/24 18:31 Ipratropium/Albuterol Sulfate 3 Ml Ampul.Neb IH 06/29/24 18:59 3 ml HS DAHLIA Administration Amlodipine Besylate 5 mg 05/30/24 22:00 05/30/24 22:48 Amlodipine Besylate 5 Mg Tablet PO 06/29/24 21:59 5 mg QHS DAHLIA Administration Aspirin 81 mg 05/31/24 10:00 Aspirin 81 Mg Tablet.Ec PO 06/30/24 09:59 DAILY DAHLIA Clopidogrel Bisulfate 75 mg 05/31/24 10:00 Clopidogrel Bisulfate 75 Mg Tablet PO 06/30/24 09:59 DAILY DAHLIA Famotidine 40 mg 05/30/24 22:00 05/30/24 22:47 Famotidine 20 Mg Tablet PO 06/29/24 21:59 40 mg QHS DAHLIA Administration Fish Oil 2,000 mg 05/30/24 22:00 05/30/24 22:48 [place]-3 Fatty Acids/Fish Oil 1000 Mg Capsule PO 06/29/24 21:59 2,000 mg BID DAHLIA Administration Insulin Glargine 30 unit 05/30/24 22:00 05/30/24 22:46 Insulin Glargine 1 Unit SQ 06/29/24 21:59 30 unit HS DAHLIA Administration Insulin Human Lispro 0 unit 05/30/24 15:52 Insulin Lispro 1 Unit SQ 06/29/24 15:51 UD PRN HYPERGLYCEMIA Losartan Potassium 50 mg 05/31/24 10:00 Losartan Potassium 50 Mg Tablet PO 06/30/24 09:59 DAILY DAHLIA Metoprolol Tartrate 25 mg 05/30/24 22:00 05/30/24 22:48 Metoprolol Tartrate 25 Mg Tab PO 06/29/24 21:59 25 mg BID DAHLIA Administration Miscellaneous Information 0 each 05/30/24 15:30 Medication Intervention 1 Each Each 06/29/24 15:29 .RN TO CHECK WITH PT DAHLIA Multivitamins Therapeutic 1 tab 05/31/24 10:00 Multivitamins,Therapeutic 1 Tab Tab PO 06/30/24 09:59 DAILY DAHLIA Pantoprazole Sodium 40 mg 05/31/24 10:00 Protonix (Pantoprazole) 40 Mg Tablet PO 06/30/24 09:59 DAILY DAHLIA Paroxetine HCl 20 mg 05/30/24 22:00 05/30/24 22:48 Paroxetine Hcl 20 Mg Tablet PO 06/29/24 21:59 20 mg QHS DAHLIA Administration Ropinirole HCl 0.5 mg 05/30/24 22:00 05/30/24 22:48 Ropinirole Hcl 0.5 Mg Tablet PO 06/29/24 21:59 0.5 mg HS DAHLIA Administration Senna 8.6 mg 05/30/24 22:00 05/30/24 22:48 Senna 8.6 Mg Tablet PO 06/29/24 21:59 8.6 mg HS DAHLIA Administration Simvastatin 20 mg 05/30/24 22:00 05/30/24 22:47 Simvastatin 20 Mg Tablet PO 06/29/24 21:59 20 mg HS DAHLIA Administration Tamsulosin HCl 0.4 mg 05/30/24 22:00 05/30/24 22:48 Tamsulosin Hcl 0.4 Mg Cap PO 06/29/24 21:59 0.4 mg HS DAHLIA Administration Discontinued Medications Generic Name Dose Route Start Last Admin Trade Name Freq PRN Reason Stop Dose Admin Sodium Chloride 1,000 mls @ 100 mls/hr 05/30/24 11:30 05/30/24 11:35 Sodium Chloride 0.9% 1000 Ml IV 06/29/24 11:29 100 mls/hr .Q10H DAHLIA Administration Non-Formulary Medication 1 tab 05/30/24 22:00 Pnv,Calcium 72/Iron/Folic Acid [ Vitamin Plus Low Iron] PO 06/29/24 21:59 HS DAHLIA Non-Formulary Medication 2 tab 05/31/24 10:00 Pnv,Calcium 72/Iron/Folic Acid [ Vitamin Plus Low Iron] PO 06/30/24 09:59 DAILY DAHLIA Lab/Rad Data: Laboratory Result Diagrams 05/30/24 11:27 05/30/24 11:27 Laboratory Results 05/30/24 05/30/24 05/30/24 Range/Units 12:09 11:56 11:30 WBC (4.23-9.07) x10^3/uL RBC (4.63-6.08) x10^6/uL Hgb (13.7-17.5) g/dL Hct (40.1-51.0) % MCV (79.0-92.2) fL MCH (25.7-32.2) pg MCHC (32.3-36.5) g/dL RDW (11.6-14.4) % Plt Count (163-337) x10^3/uL MPV (9.4-12.4) fL Gran % (34.0-67.9) % Immature Gran % (Auto) (0.001-0.429) % Nucleat RBC Rel Count (0.00-0.2) % Eos # (Auto) (0.04-0.54) x10^3/uL Immature Gran # (Auto) (0.001-0.031) x10^3u/L Absolute Lymphs (auto) (1.32-3.57) x10^3/uL Absolute Monos (auto) (0.30-0.82) x10^3/uL Absolute Nucleated RBC (0.00-0.012) x10^3u/L Lymphocytes % (21.8-53.1) % Monocytes % (5.3-12.2) % Eosinophils % (0.8-7.0) % Basophils % (0.2-1.2) % Absolute Granulocytes (1.78-5.38) x10^3/uL Basophils # (0.01-0.08) x10^3/uL PT (9.4-12.5) SECONDS INR (0.8-3.0) APTT (25.1-36.5) SECONDS Sodium (135-145) mmol/L Potassium (3.5-5.1) mmol/L Chloride (98-107) mmol/L Carbon Dioxide (22-30) mmol/L Anion Gap (5-15) MEQ/L BUN (9-20) mg/dL Creatinine (0.66-1.25) mg/dL Estimated GFR ML/MIN Glucose (74-106) mg/dL Calcium (8.4-10.2) mg/dL Magnesium 2.2 (1.6-2.3) mg/dL Total Bilirubin (0.2-1.3) mg/dL AST (17-59) U/L ALT (0-50) U/L Alkaline Phosphatase (38-126) U/L Troponin I < 0.012 (0.000-0.033) ng/mL Serum Total Protein (6.3-8.2) g/dL Albumin (3.5-5.0) g/dL Urine Color Yellow (Yellow) Urine Appearance Clear (Clear) Urine pH 6.0 (4.6-8.0) Ur Specific Ava >=1.030 A (1.005-1.030) Urine Protein Negative (Negative) Urine Glucose (UA) >=1000 A (Negative) mg/dL Urine Ketones Negative (Negative) Urine Blood Negative (Negative) Urine Nitrite Negative (Negative) Urine Bilirubin Negative (Negative) Urine Urobilinogen 0.2 (0.2) mg/dL Ur Leukocyte Esterase Negative (Negative) U Hyaline Cast (Auto) NONE SEEN (0-2) /LPF Urine Microscopic RBC 0-2 (0-5) /HPF Urine Microscopic WBC 0-2 (0-5) /HPF Ur Epithelial Cells None Seen (None Seen) /HPF Urine Bacteria None Seen (None Seen) /HPF Urine Culture Reflexed NO (NO) Slides for Path Review 05/30/24 05/30/24 05/30/24 Range/Units 11:27 11:27 11:27 WBC 7.7 (4.23-9.07) x10^3/uL RBC 4.21 L (4.63-6.08) x10^6/uL Hgb 9.1 L (13.7-17.5) g/dL Hct 32.4 L (40.1-51.0) % MCV 77.0 L (79.0-92.2) fL MCH 21.6 L (25.7-32.2) pg MCHC 28.1 L (32.3-36.5) g/dL RDW 21.1 H (11.6-14.4) % Plt Count 381 H (163-337) x10^3/uL MPV 10.7 (9.4-12.4) fL Gran % 72.6 H (34.0-67.9) % Immature Gran % (Auto) 0.3 (0.001-0.429) % Nucleat RBC Rel Count 0.0 (0.00-0.2) % Eos # (Auto) 0.35 (0.04-0.54) x10^3/uL Immature Gran # (Auto) 0.02 (0.001-0.031) x10^3u/L Absolute Lymphs (auto) 0.91 L (1.32-3.57) x10^3/uL Absolute Monos (auto) 0.74 (0.30-0.82) x10^3/uL Absolute Nucleated RBC 0.00 (0.00-0.012) x10^3u/L Lymphocytes % 11.8 L (21.8-53.1) % Monocytes % 9.6 (5.3-12.2) % Eosinophils % 4.5 (0.8-7.0) % Basophils % 1.2 (0.2-1.2) % Absolute Granulocytes 5.62 H (1.78-5.38) x10^3/uL Basophils # 0.09 H (0.01-0.08) x10^3/uL PT 10.8 (9.4-12.5) SECONDS INR 0.99 (0.8-3.0) APTT 60.6 H (25.1-36.5) SECONDS Sodium 141 (135-145) mmol/L Potassium 3.8 (3.5-5.1) mmol/L Chloride 104 (98-107) mmol/L Carbon Dioxide 26 (22-30) mmol/L Anion Gap 15.0 (5-15) MEQ/L BUN 13 (9-20) mg/dL Creatinine 1.26 H (0.66-1.25) mg/dL Estimated GFR 58.0 ML/MIN Glucose 233 H (74-106) mg/dL Calcium 9.3 (8.4-10.2) mg/dL Magnesium (1.6-2.3) mg/dL Total Bilirubin 0.80 (0.2-1.3) mg/dL AST 34 (17-59) U/L ALT 23 (0-50) U/L Alkaline Phosphatase 77 (38-126) U/L Troponin I (0.000-0.033) ng/mL Serum Total Protein 6.8 (6.3-8.2) g/dL Albumin 3.8 (3.5-5.0) g/dL Urine Color (Yellow) Urine Appearance (Clear) Urine pH (4.6-8.0) Ur Specific Ava (1.005-1.030) Urine Protein (Negative) Urine Glucose (UA) (Negative) mg/dL Urine Ketones (Negative) Urine Blood (Negative) Urine Nitrite (Negative) Urine Bilirubin (Negative) Urine Urobilinogen (0.2) mg/dL Ur Leukocyte Esterase (Negative) U Hyaline Cast (Auto) (0-2) /LPF Urine Microscopic RBC (0-5) /HPF Urine Microscopic WBC (0-5) /HPF Ur Epithelial Cells (None Seen) /HPF Urine Bacteria (None Seen) /HPF Urine Culture Reflexed (NO) Slides for Path Review YES - Progress Progress: improved Progress Note: 79-year-old male presents to emergency department for evaluation of generalized weakness and difficulty walking. 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 Patient require hospitalization for further evaluation and treatment. Case discussed with nurse practitioner who accepts admission to observation at approximately 2 PM. Portions of this note were created with voice recognition technology. There may be grammatical, spelling, punctuation or sound alike errors Complexity of problem addressed is moderate acute complicated. No critical care time. Complexity of data reviewed and analyzed is extensive. Test ordered test reviewed results analyzed and correlated clinically with history and physical exam. Management discussed with accepting nurse practitioner. Risk of complication and or risk of morbidity/mortality of patient management is high. Patient requires hospitalization for further evaluation and treatment. Vital stable. Time spent to discharge patient is approximately 20 minutes. Plan of care established for shared decision making. No social determinants of health present to impede follow-up Portions of this note were created with voice recognition technology. There may be grammatical, spelling, punctuation or sound alike errors 05/31/24 04:27 Counseled pt/family regarding: lab results, diagnosis - Departure Departure Disposition: Observation Clinical Impression: Generalized weakness, Pale skin, Elevated serum creatinine, Microcytic anemia Condition: Stable Critical Care Time: No
[2024-05-30] MEDS: Sodium Chloride 0.9% 1000 ML 1,000 ML IV SCH (11:35)
[2024-05-30 12:06] LABS: Absolute Neutrophil Ct (ANC) 5.62 x10^3/uL (1.78-5.38); BASOPHIL % 1.2 % (0.2-1.2); Basophil (Absolute #) 0.09 x10^3/uL (0.01-0.08); Eosinophil % 4.5 % (0.8-7.0); Eosinophil (Absolute #) 0.35 x10^3/uL (0.04-0.54); Hematocrit 32.4 % (40.1-51.0); Hemoglobin 9.1 g/dL (13.7-17.5); IMMATURE GRAN # 0.02 x10^3u/L (0.001-0.031); IMMATURE GRAN % 0.3 % (0.001-0.429); Lymphocyte (Absolute #) 0.91 x10^3/uL (1.32-3.57); Lymphocytes % 11.8 % (21.8-53.1); Mean Corpuscular Hemoglobin 21.6 pg (25.7-32.2); Mean Corpuscular Hgb Concent. 28.1 g/dL (32.3-36.5); Mean Platelet Volume 10.7 fL (9.4-12.4); Monocyte (Absolute #) 0.74 x10^3/uL (0.30-0.82); Monocytes % 9.6 % (5.3-12.2); Neutrophil % 72.6 % (34.0-67.9); Platelet Count 381 x10^3/uL (163-337); Red Blood Count 4.21 x10^6/uL (4.63-6.08); Red Cell Distribution Width 21.1 % (11.6-14.4); White Blood Count 7.7 x10^3/uL (4.23-9.07)
[2024-05-30 12:17] LABS: INR 0.99 (0.8-3.0); PROTIME 10.8 SECONDS (9.4-12.5); PTT 60.6 SECONDS (25.1-36.5)
[2024-05-30 12:21] LABS: ALBUMIN 3.8 g/dL (3.5-5.0); BILIRUBIN,TOTAL 0.8 mg/dL (0.2-1.3); Calcium 9.3 mg/dL (8.4-10.2); Creatinine 1 1.26 mg/dL (0.66-1.25); Potassium 3.8 mmol/L (3.5-5.1); Total Protein 6.8 g/dL (6.3-8.2)
[2024-05-30 12:27] LABS: Appearance Clear (Clear); Bacteria None Seen /HPF (None Seen); Bilirubin Negative (Negative); Blood Negative (Negative); Epithelial Cells None Seen /HPF (None Seen); Glucose, Urine >=1000 mg/dL (Negative); Hyaline Casts NONE SEEN /LPF (0-2); Ketones Negative (Negative); Leukocyte Esterase Negative (Negative); Nitrite Negative (Negative); Protein,Urine Dip Negative (Negative); RBC 0-2 /HPF (0-5); Specific Gravity >=1.030 (1.005-1.030); Urobilinogen 0.2 mg/dL (0.2); WBC 0-2 /HPF (0-5)
[2024-05-30 14:54] LABS: Slide Review 1 YES
[2024-05-30] MEDS ORDERED: VENTOLIN COMMON CANISTER IH PRN (15:15)
--- NOTE | 2024-05-30 15:19 | PCM.HP ---
History of Present Illness - Chief Complaint Chief Complaint: Lower extremity numbness and weakness Date: 05/30/24 History of Present Illness: is a 79 year old male with PMHX of iron def. anemia, HTN, hyperlipidemia, PE, A-fib, DVT, Sleep apnea, Type II DM, peripheral neuropathy, OA, chronic obesity, and GERD. He presented o our ED via EMS today. Patient was brought in from home for evaluation of generalized weakness. Patient reports that he had a blood transfusion on May 16. Since then he has been experiencing numbness of his lower extremities and progressive weakness. Patient states the numbness has gotten progressively worse. He has a hx of peripheral neuropathy but was told by PCP his sxs are r/t his anemia and takes no meds for this. He states he has cramping of his leg BL from hips down at times. He denies loss of bowel or bladder. He reports chronic lumbar bacl pain with cramping. He Patient reports that he can only ambulate 3 steps before needing to sit down. Walking makes his back pain worse. Patient denies obvious blood loss since last admission and Hgb 9 today. This is improved from last visit. He was to f/u OP for colonoscopy which he has not done yet. Daughter at bedside and all questions and conerns answered. She reports pt has intermittent confusion. Labs done in ER overall non-concerning. CT head, cervical, and lumbar spine ordered. Will consider neurology consult. More labs ordered for further eval of sxs. He denies CP, SOB, abd. pain, N/V/D. - Review of Systems Constitutional: Weakness, No Fever, No Chills Eyes: No Symptoms Ears, Nose, & Throat: No Symptoms Respiratory: No Cough, No Short Of Breath Cardiac: No Chest Pain, No Edema, No Syncope Abdominal/Gastrointestinal: No Abdominal Pain, No Nausea, No Vomiting, No Diarrhea Genitourinary Symptoms: No Dysuria Musculoskeletal: Back Pain, No Neck Pain Skin: No Rash Neurological: Parasthesia (BLLE numbness), No Dizziness, No Focal Weakness, No Sensory Changes Psychological: No Symptoms Endocrine: No Symptoms Hematologic/Lymphatic: No Symptoms Immunological/Allergic: No Symptoms Medications & Allergies Home Medications: Home Medication List Multivitamin [Multi-Vitamin Daily] 1 each PO DAILY 09/08/15 [History Confirmed 05/30/24] Senna 8.6 mg [Senokot 8.6 mg] 8.6 mg PO HS 09/08/15 [History Confirmed 05/30/24] Tamsulosin HCl 0.4 mg [Flomax 0.4 MG] 0.4 mg PO HS 09/08/15 [History Confirmed 05/30/24] Famotidine 20 mg [Pepcid 20 MG] 40 mg PO QHS 02/23/20 [History Confirmed 05/30/24] PARoxetine HCL [Paroxetine HCl] 20 mg PO QHS 09/24/20 [History Confirmed 05/30/24] Rosuvastatin Calcium 10 mg PO HS 09/24/20 [History Confirmed 05/30/24] Albuterol Sulfate [Proair Hfa] 8.5 gm IH Q4-6HPRN PRN 05/11/22 [History Confirmed 05/30/24] Amlodipine Besylate [Norvasc] 5 mg PO QHS 05/11/22 [History Confirmed 05/30/24] [place]-3/Dha/Epa/Fish Oil [Fish Oil 1,000 mg Softgel] 2,000 mg PO BID 05/11/22 [History Confirmed 05/30/24] Aspirin EC 81 mg [Ecotrin 81 mg] 81 mg PO DAILY 05/16/24 [History Confirmed 05/30/24] Clopidogrel Bisulfate [Plavix] 75 mg PO DAILY 05/16/24 [History Confirmed 05/30/24] Dapagliflozin Propanediol [Farxiga] 10 mg PO DAILY 05/16/24 [History Confirmed 05/30/24] Insulin Degludec [Tresiba Flextouch U-100] 30 units SQ QHS 05/16/24 [History Confirmed 05/30/24] Losartan Potassium 50 mg [Cozaar 50 MG] 50 mg PO DAILY 05/16/24 [History Confirmed 05/30/24] Metoprolol Tartrate 25 mg [Lopressor 25MG Tab] 25 mg PO BID 05/16/24 [History Confirmed 05/30/24] Omeprazole 20 mg PO DAILY 05/16/24 [History Confirmed 05/30/24] Pnv,Calcium 72/Iron/Folic Acid [ Vitamin Plus Low Iron] 1 tab PO HS 05/30/24 [History Confirmed 05/30/24] Pnv,Calcium 72/Iron/Folic Acid [ Vitamin Plus Low Iron] 2 tab PO DAILY 05/30/24 [History Confirmed 05/30/24] Allergies/Adverse Reactions: Allergies Allergy/AdvReac Type Severity Reaction Status Date / Time cephalexin [From Keflex] Allergy Severe kidneys Verified 05/16/24 20:14 shut down codeine Allergy Mild Nausea and Verified 05/16/24 20:14 Vomiting Sulfa (Sulfonamide Allergy Mild hallucinati Verified 05/16/24 20:14 Antibiotics) on - Past Medical History Past Medical History: Yes Neurological History: Peripheral Neuropathy ENT History: No Pertinent History Cardiac History: Arrhythmia, Deep Vein Thrombosis, High Cholesterol, Hypertension Respiratory History: COPD, Pulmonary Embolism, Sleep Apnea Endocrine Medical History: Diabetes Type II Musculoskelatal History: Osteoarthritis GI Medical History: GERD, Gallbladder Disease History: No Pertinent History Pyscho-Social History: Depression Male Reproductive Disorders: Prostate Problems Comment: anemia - Past Surgical History Past Surgical History: Yes Neuro Surgical History: No Pertinent History Cardiac History: Cardiac Catheterization, Internal Defibrillator, Pacemaker Respiratory Surgery: No Pertinent History GI Surgical History: Cholecystectomy Genitourinary Surgical Hx: No Pertinent History Musculskeletal Surgical Hx: Orthopedic Surgery Male Surgical History: Other Other Surgical History: dental surgical extractions,left knee, tear of tendons repaired, watchman procedure in December 2023, [employer] 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/Mai, Significant Family History: diabetes, hypertension - Social History Smoking Status: Former smoker How long have you smoked: 42 years Exposure to second hand smoke: No Alcohol: None Drug Use: none - Social Determinants of Health Will the patient participate in the screening: Yes Do you worry about a steady place to live?: No Do you have any problems with any of the following?: No known problems In the past 12 months,have you had to go without utilities?: No Have you or anyone in your house had to go without enough: No Transportation Issues: No Has anyone in your support network made you feel unsafe?: No Does the patient want assistance with any of the above?: No - Physical Exam Vital Signs: Vital Signs - 24 hr Temp Pulse Resp BP BP Pulse Ox 05/30/24 14:23 98.0 F 64 22 118/64 96 05/30/24 13:01 65 22 128/75 96 05/30/24 12:31 66 18 139/75 97 05/30/24 12:01 99 05/30/24 12:00 66 31 H 125/60 97 05/30/24 11:39 96 05/30/24 11:30 63 24 133/69 97 05/30/24 11:01 66 25 H 148/83 05/30/24 10:57 97.5 F 65 17 156/76 99 General Appearance: no apparent distress, alert, obese Neurologic Exam: alert, oriented x 3, cooperative, normal mood/affect, nml cerebellar function, nml station & gait, sensation nml, No motor deficits Eye Exam: PERRL/EOMI, eyes nml inspection Ears, Nose, Throat Exam: normal ENT inspection, TMs normal, pharynx normal, moist mucous membranes Neck Exam: normal inspection, non-tender, supple, full range of motion Respiratory Exam: normal breath sounds, lungs clear, No respiratory distress Cardiovascular Exam: regular rate/rhythm, normal heart sounds, normal peripheral pulses Gastrointestinal/Abdomen Exam: soft, normal bowel sounds, No tenderness, No mass Back Exam: normal inspection, normal range of motion, No CVA tenderness, No vertebral tenderness Extremity Exam: normal inspection, normal range of motion, pelvis stable Skin Exam: normal color, warm, dry, No rash Lymphatic Exam: No adenopathy Results - Labs Lab/Micro Results: Lab Results-Last 24 Hours 05/30/24 05/30/24 05/30/24 Range/Units 11:27 11:27 11:27 WBC 7.7 (4.23-9.07) x10^3/uL RBC 4.21 L (4.63-6.08) x10^6/uL Hgb 9.1 L (13.7-17.5) g/dL Hct 32.4 L (40.1-51.0) % MCV 77.0 L (79.0-92.2) fL MCH 21.6 L (25.7-32.2) pg MCHC 28.1 L (32.3-36.5) g/dL RDW 21.1 H (11.6-14.4) % Plt Count 381 H (163-337) x10^3/uL MPV 10.7 (9.4-12.4) fL Gran % 72.6 H (34.0-67.9) % Immature Gran % (Auto) 0.3 (0.001-0.429) % Nucleat RBC Rel Count 0.0 (0.00-0.2) % Eos # (Auto) 0.35 (0.04-0.54) x10^3/uL Immature Gran # (Auto) 0.02 (0.001-0.031) x10^3u/L Absolute Lymphs (auto) 0.91 L (1.32-3.57) x10^3/uL Absolute Monos (auto) 0.74 (0.30-0.82) x10^3/uL Absolute Nucleated RBC 0.00 (0.00-0.012) x10^3u/L Lymphocytes % 11.8 L (21.8-53.1) % Monocytes % 9.6 (5.3-12.2) % Eosinophils % 4.5 (0.8-7.0) % Basophils % 1.2 (0.2-1.2) % Absolute Granulocytes 5.62 H (1.78-5.38) x10^3/uL Basophils # 0.09 H (0.01-0.08) x10^3/uL PT 10.8 (9.4-12.5) SECONDS INR 0.99 (0.8-3.0) APTT 60.6 H (25.1-36.5) SECONDS Sodium 141 (135-145) mmol/L Potassium 3.8 (3.5-5.1) mmol/L Chloride 104 (98-107) mmol/L Carbon Dioxide 26 (22-30) mmol/L Anion Gap 15.0 (5-15) MEQ/L BUN 13 (9-20) mg/dL Creatinine 1.26 H (0.66-1.25) mg/dL Estimated GFR 58.0 ML/MIN Glucose 233 H (74-106) mg/dL Calcium 9.3 (8.4-10.2) mg/dL Magnesium (1.6-2.3) mg/dL Total Bilirubin 0.80 (0.2-1.3) mg/dL AST 34 (17-59) U/L ALT 23 (0-50) U/L Alkaline Phosphatase 77 (38-126) U/L Troponin I (0.000-0.033) ng/mL Serum Total Protein 6.8 (6.3-8.2) g/dL Albumin 3.8 (3.5-5.0) g/dL Urine Color (Yellow) Urine Appearance (Clear) Urine pH (4.6-8.0) Ur Specific [place] (1.005-1.030) Urine Protein (Negative) Urine Glucose (UA) (Negative) mg/dL Urine Ketones (Negative) Urine Blood (Negative) Urine Nitrite (Negative) Urine Bilirubin (Negative) Urine Urobilinogen (0.2) mg/dL Ur Leukocyte Esterase (Negative) U Hyaline Cast (Auto) (0-2) /LPF Urine Microscopic RBC (0-5) /HPF Urine Microscopic WBC (0-5) /HPF Ur Epithelial Cells (None Seen) /HPF Urine Bacteria (None Seen) /HPF Urine Culture Reflexed (NO) Slides for Path Review YES 05/30/24 05/30/24 05/30/24 Range/Units 11:30 11:56 12:09 WBC (4.23-9.07) x10^3/uL RBC (4.63-6.08) x10^6/uL Hgb (13.7-17.5) g/dL Hct (40.1-51.0) % MCV (79.0-92.2) fL MCH (25.7-32.2) pg MCHC (32.3-36.5) g/dL RDW (11.6-14.4) % Plt Count (163-337) x10^3/uL MPV (9.4-12.4) fL Gran % (34.0-67.9) % Immature Gran % (Auto) (0.001-0.429) % Nucleat RBC Rel Count (0.00-0.2) % Eos # (Auto) (0.04-0.54) x10^3/uL Immature Gran # (Auto) (0.001-0.031) x10^3u/L Absolute Lymphs (auto) (1.32-3.57) x10^3/uL Absolute Monos (auto) (0.30-0.82) x10^3/uL Absolute Nucleated RBC (0.00-0.012) x10^3u/L Lymphocytes % (21.8-53.1) % Monocytes % (5.3-12.2) % Eosinophils % (0.8-7.0) % Basophils % (0.2-1.2) % Absolute Granulocytes (1.78-5.38) x10^3/uL Basophils # (0.01-0.08) x10^3/uL PT (9.4-12.5) SECONDS INR (0.8-3.0) APTT (25.1-36.5) SECONDS Sodium (135-145) mmol/L Potassium (3.5-5.1) mmol/L Chloride (98-107) mmol/L Carbon Dioxide (22-30) mmol/L Anion Gap (5-15) MEQ/L BUN (9-20) mg/dL Creatinine (0.66-1.25) mg/dL Estimated GFR ML/MIN Glucose (74-106) mg/dL Calcium (8.4-10.2) mg/dL Magnesium 2.2 (1.6-2.3) mg/dL Total Bilirubin (0.2-1.3) mg/dL AST (17-59) U/L ALT (0-50) U/L Alkaline Phosphatase (38-126) U/L Troponin I < 0.012 (0.000-0.033) ng/mL Serum Total Protein (6.3-8.2) g/dL Albumin (3.5-5.0) g/dL Urine Color Yellow (Yellow) Urine Appearance Clear (Clear) Urine pH 6.0 (4.6-8.0) Ur Specific [place] >=1.030 A (1.005-1.030) Urine Protein Negative (Negative) Urine Glucose (UA) >=1000 A (Negative) mg/dL Urine Ketones Negative (Negative) Urine Blood Negative (Negative) Urine Nitrite Negative (Negative) Urine Bilirubin Negative (Negative) Urine Urobilinogen 0.2 (0.2) mg/dL Ur Leukocyte Esterase Negative (Negative) U Hyaline Cast (Auto) NONE SEEN (0-2) /LPF Urine Microscopic RBC 0-2 (0-5) /HPF Urine Microscopic WBC 0-2 (0-5) /HPF Ur Epithelial Cells None Seen (None Seen) /HPF Urine Bacteria None Seen (None Seen) /HPF Urine Culture Reflexed NO (NO) Slides for Path Review - Radiology Impressions Radiology Exams & Impressions: Radiology Procedures Category Date Time Status CERVICAL SPINE WITH CONTRAST [CT] Routine Exams 05/30/24 15:10 Ordered HEAD WITH CONTRAST [CT] Routine Exams 05/30/24 15:10 Ordered LUMBAR SPINE WITH [CT] Routine Exams 05/30/24 15:10 Ordered - Other Procedures and Tests Respiratory Therapy 05/30/24 14:36 RT Screen per Nursing Assess ONCE Assessment/Plan (1) Generalized weakness Current Visit: Yes Status: Acute Assessment & Plan: - CT head, cervical, and lumbar spine with contrast - PT eval and treat - Consider rehab placement Code(s): R53.1 - WEAKNESS (2) Peripheral neuropathy Current Visit: Yes Status: Acute Assessment & Plan: - Chronic - A1C pending - does not take any home meds for this - B12, TSH, CRP, ESR, A1C pending - Consider gabapentin Code(s): G62.9 - POLYNEUROPATHY, UNSPECIFIED (3) Anemia Current Visit: Yes Status: Chronic Assessment & Plan: - Hgb 9.1- stable - reviewed most recent irion panel labs - needs OP colonoscopy Code(s): D64.9 - ANEMIA, UNSPECIFIED (4) Type II diabetes mellitus Current Visit: Yes Status: Acute Assessment & Plan: - Lantus 30 units at HS - S/S humalog - A1C pending (5) Hyperlipidemia Current Visit: Yes Status: Acute Assessment & Plan: - Continue statin Code(s): E78.5 - HYPERLIPIDEMIA, UNSPECIFIED (6) Obesity (BMI 30-39.9) Current Visit: No Status: Chronic Assessment & Plan: - Advised ADA diet and exercise control Code(s): E66.9 - OBESITY, UNSPECIFIED (7) Sleep apnea Current Visit: Yes Status: Chronic Assessment & Plan: - RT CPAP set up Code(s): G47.30 - SLEEP APNEA, UNSPECIFIED (8) Restless legs Current Visit: Yes Status: Acute Assessment & Plan: - Start requip at HS VTE:Plavix PPI: Protonix Next of KIN: daughter D/C plan: 1-2 days Code status: [facility] Telemedicine Encounter - Telemedicine Encounter Telemedicine Encounter: "The entirety of this encounter was performed via Telemedicine" This visit was performed using real-time audio and video connection between my location and thepatients locationwith the assistance of a surrogateat the patients location. Written or verbal consent was obtained from the patient/guardian to perform this visit usingsynchr[employer] Techn[employer]iestelemedicine technology. Any patient questions regarding the telemedicine interaction were answered.
[2024-05-30] MEDS ORDERED: MEDICATION INTERVENTION MC SCH (15:30)
--- NOTE | 2024-05-30 17:19 | XRAY ---
Indication: Bilateral lower extremity weakness 1 week. Multiple contiguous axial images obtained through the head prior to and following 100 cc Isovue 370 contrast as ordered. Comparison: November 04, 2020 Again age-appropriate global atrophy and mild periventricular degenerative micro-ischemia bilaterally. No acute intracranial hemorrhage, abnormal extra-axial fluid collection, or mass effect. Postcontrast images are negative for adenoma enhancing intra-or extra-axial mass. Fourth ventricle is midline. Bony calvarium intact. Visualized paranasal sinuses and mastoid air cells are clear. Impression: Again nonacute senile brain. Negative contrast exam.
--- NOTE | 2024-05-30 17:23 | XRAY ---
Indication: Bilateral lower extremity weakness 1 week. Multiple contiguous axial images obtained through the cervical spine using 100 cc Isovue 370 contrast as ordered. Comparison: None Osseous structures demineralized. Minimal/mild multilevel degenerative endplate spurring greatest at C6-T1 levels. Also mild/moderate multilevel bilateral degenerative facet hypertrophy. Sagittal and coronal reformatted images demonstrates normal alignment. C6-T1 disc space narrowing. No acute compression fracture, subluxation, or jumped facet. Normal appearing craniocervical junction. Visualized contrast is soft tissues demonstrates a few tiny cervical and submandibular lymph nodes bilaterally, none pathologically enlarged. Major arteries and veins are normal course and caliber with minimal bilateral carotid calcifications. Thyroid gland enhances homogeneously. Visualized lung apices clear. Impression: 1. Osteopenia, multilevel degenerative changes greatest at C6-T1, and bilateral carotid calcifications. 2. Remaining CT cervical spine with contrast exam is negative.
--- NOTE | 2024-05-30 17:29 | XRAY ---
Indication: Bilateral lower extremity weakness 1 week. Multiple contiguous axial images obtained through the lumbar spine using 100 cc Isovue 370 contrast as ordered. Sagittal and coronal reformatted images obtained. Comparison: CT abdomen/pelvis May 11, 2022 Osseous structures remain demineralized. Grossly stable L1-S1 broad-based disc osteophyte complex, L1-L5 degenerative vacuum disc phenomena, mild multilevel bilateral degenerative facet arthropathy, and small inferior L1 Schmorl node. No acute fracture, suspicious bony lesions, or spinal canal stenosis. Sagittal and coronal reformatted images again demonstrate normal lumbar lordosis, mild dextroscoliosis centered at L3, and L1-L5 disc space narrowing. No acute compression fracture or subluxation. Visualized contrasted soft tissues again demonstrates mild aortoiliac calcifications, nonobstructing right renal punctate calculus, and left lower renal exophytic cyst. Impression: 1. Stable osteopenia, multilevel degenerative spondylosis, dextroscoliosis, L1 Schmorl node, arteriosclerotic disease, right renal micro-calculus, and left renal cyst. 2. Remaining CT lumbar spine with contrast exam is negative.
[2024-05-30] MEDS: DUONEB 0.5-3 MG/3 ml Neb IH SCH (18:31)
[2024-05-30] MEDS ORDERED: FOLIC ACID PO SCH (22:00)
[2024-05-30] MEDS ORDERED: IRON PO SCH (22:00)
[2024-05-30] MEDS ORDERED: PNV CALCIUM PO SCH (22:00)
[2024-05-30] MEDS ORDERED: [UNRECOGNIZED DRUG - OTHER] PO SCH (22:00)
[2024-05-30] MEDS ORDERED: NON-FORMULARY ITEM (Rosuvastatin Calcium [Rosuvastatin Calcium] 10 MG Tablet) PO SCH (22:00)
[2024-05-30] MEDS ORDERED: NON-FORMULARY ITEM (Amlodipine Besylate [Norvasc] 2.5 MG Tablet) PO SCH (22:00)
[2024-05-30] MEDS: Lantus Insulin SQ SCH (22:46)
[2024-05-30] MEDS: Pepcid 20 MG PO SCH (22:47)
[2024-05-30] MEDS: ZOCOR 20MG PO SCH (22:47)
[2024-05-30] MEDS: Requip 0.5 MG PO SCH (22:48)
[2024-05-30] MEDS: Paxil 20 MG PO SCH (22:48)
[2024-05-30] MEDS: Lopressor 25MG Tab PO SCH (22:48)
[2024-05-30] MEDS: SENOKOT 8.6 MG PO SCH (22:48)
[2024-05-30] MEDS: FISH OIL 1,000 MG CAPSULE PO SCH (22:48)
[2024-05-30] MEDS: Flomax 0.4 MG PO SCH (22:48)
[2024-05-30] MEDS: NORVASC 5 MG PO SCH (22:48)
[2024-05-31 05:36] LABS: Hematocrit 31.3 % (40.1-51.0); Hemoglobin 8.8 g/dL (13.7-17.5); Mean Cell Volume 76.5 fL (79.0-92.2); Mean Corpuscular Hemoglobin 21.5 pg (25.7-32.2); Mean Corpuscular Hgb Concent. 28.1 g/dL (32.3-36.5); Mean Platelet Volume 10.8 fL (9.4-12.4); Platelet Count 401 x10^3/uL (163-337); Red Blood Count 4.09 x10^6/uL (4.63-6.08); Red Cell Distribution Width 21.5 % (11.6-14.4); White Blood Count 7.2 x10^3/uL (4.23-9.07)
[2024-05-31 06:03] LABS: ALBUMIN 3.9 g/dL (3.5-5.0); BILIRUBIN,TOTAL 0.7 mg/dL (0.2-1.3); Calcium 9.1 mg/dL (8.4-10.2); Creatinine 1 1.27 mg/dL (0.66-1.25); EST GLOMERULAR FILTRATION RATE 57.5 ML/MIN; MAGNESIUM 2.2 mg/dL (1.6-2.3); Potassium 3.6 mmol/L (3.5-5.1); Total Protein 7.2 g/dL (6.3-8.2)
[2024-05-31 06:11] LABS: Slide Review YES
[2024-05-31] MEDS: PLAVIX Tablet PO SCH (08:45)
[2024-05-31] MEDS: THERAGRAN MULTIVITAMIN PO SCH (08:45)
[2024-05-31] MEDS: Cozaar 50 MG PO SCH (08:46)
[2024-05-31] MEDS: ECOTRIN 81 MG PO SCH (08:46)
[2024-05-31] MEDS: Protonix 40MG Tablet PO SCH (08:46)
[2024-05-31] MEDS ORDERED: NON-FORMULARY ITEM (Dapagliflozin Propanediol [Farxiga] 10 MG Tablet) PO SCH (10:00)
[2024-05-31] MEDS ORDERED: NON-FORMULARY ITEM (Multivitamin [Multi-Vitamin Daily] 1 EACH Tablet) PO SCH (10:00)
[2024-05-31] MEDS ORDERED: PNV CALCIUM PO SCH (10:00)
[2024-05-31] MEDS ORDERED: NON-FORMULARY ITEM (Omeprazole [Omeprazole] 20 MG Capsule.Dr) PO SCH (10:00)
[2024-05-31] MEDS ORDERED: [UNRECOGNIZED DRUG - OTHER] PO SCH (10:00)
[2024-05-31] MEDS ORDERED: IRON PO SCH (10:00)
[2024-05-31] MEDS ORDERED: FOLIC ACID PO SCH (10:00)
--- NOTE | 2024-05-31 11:57 | XRAY ---
Indication: Intermittent confusion. Two-dimensional sonogram and color Doppler imaging carotid arteries of the neck performed. Comparison: February 08, 2019 Examination right carotid circulation again demonstrates intimal thickening at the level of the bulb. Otherwise widely patent common carotid, carotid bulb, internal carotid, external carotid arteries. PSV CCA is 106 cm/s. PSV ICA is 89 cm/s. ICA/CCA ratio is 0.8. Normal antegrade vertebral artery flow. Examination left carotid circulation again demonstrates minimal calcified plaque at the level of the bulb extending into the origin of the internal carotid artery. Widely patent common carotid and external carotid artery. PSV CCA is 87 cm/s. PSV ICA is 114 cm/s. ICA/CCA ratio is 1.3. Normal antegrade vertebral artery flow. Impression: Grossly stable minimal arteriosclerotic plaquing bilaterally. Velocity measurements again negative for hemodynamically significant flow-limiting stenosis.
--- NOTE | 2024-05-31 12:15 | XRAY ---
Indication: Bilateral leg numbness. Bilateral ankle brachial index exam performed. Comparison: None Right arm brachial pressure is 118. Right ankle pressure is 147. Ankle brachial index is 1.0, normal. Left arm brachial pressure is 142. Left ankle pressure is 152. Ankle brachial is 1.1, normal. Impression: Left and right ABIs are normal.
--- NOTE | 2024-05-31 13:06 | PCM.NOTE ---
Date and Time: 05/31/24 1300 Subjective Assessment: 05/30/24 is a 79 year old male with PMHX of iron def. anemia, HTN, hyperlipidemia, PE, A-fib, DVT, Sleep apnea, Type II DM, peripheral neuropathy, OA, chronic obesity, and GERD. He presented o our ED via EMS today. Patient was brought in from home for evaluation of generalized weakness. Patient reports that he had a blood transfusion on May 16. Since then he has been experiencing numbness of his lower extremities and progressive weakness. Patient states the numbness has gotten progressively worse. He has a hx of peripheral neuropathy but was told by PCP his sxs are r/t his anemia and takes no meds for this. He states he has cramping of his leg BL from hips down at times. He denies loss of bowel or bladder. He reports chronic lumbar bacl pain with cramping. He Patient reports that he can only ambulate 3 steps before needing to sit down. Walking makes his back pain worse. Patient denies obvious blood loss since last admission and Hgb 9 today. This is improved from last visit. He was to f/u OP for colonoscopy which he has not done yet. Daughter at bedside and all questions and conerns answered. She reports pt has intermittent confusion. Labs done in ER overall non-concerning. CT head, cervical, and lumbar spine ordered. Will consider neurology consult. More labs ordered for further eval of sxs. He denies CP, SOB, abd. pain, N/V/D. 05/31/24 Pt resting in bed. He did feel that Requip was helpful for restless legs last night. However, he feels that the medication made him a bit sleepy this morning. Reviewed CT results with the pt. Carotid duplex Bl ordered as calcifications seen on CT. Neurology consult ordered for drop foot BL, weakness, and numbness of BLLE. PT consult pending. Pt will likely need rehab at d/c. THA ordered for identification of possible PAD. Will start low dose Gabapentin at HS for peripheral neuropathy sxs. Concern for increased sedation since Requip made him sleepy. He denies CP, SOB, abd. pain, N/V/D. - Review of Systems Constitutional: Weakness, No Fever, No Chills Eyes: No Symptoms Ears, Nose, & Throat: No Symptoms Respiratory: No Cough, No Short Of Breath Cardiac: No Chest Pain, No Edema, No Syncope Abdominal/Gastrointestinal: No Abdominal Pain, No Nausea, No Vomiting, No Diarrhea Genitourinary Symptoms: No Dysuria Musculoskeletal: No Back Pain, No Neck Pain Skin: No Rash Neurological: Parasthesia (BLLE, with drop foot BL), No Dizziness, No Focal Weakness, No Sensory Changes Psychological: No Symptoms Endocrine: No Symptoms Hematologic/Lymphatic: No Symptoms Immunological/Allergic: No Symptoms Objective Exam General Appearance: no apparent distress, alert, obese Neurologic Exam: alert, oriented x 3, cooperative, normal mood/affect, nml cerebellar function, motor weakness, other (BLLE drop foot), No motor deficits Skin Exam: normal color, warm, dry Eye Exam: PERRL, EOMI, eyes nml inspection Ears, Nose, Throat Exam: normal ENT inspection, pharynx normal, moist mucous membranes Neck Exam: normal inspection, non-tender, supple, full range of motion Respiratory Exam: normal breath sounds, lungs clear, No respiratory distress Cardiovascular Exam: regular rate/rhythm, normal heart sounds Gastrointestinal/Abdomen Exam: soft, No tenderness, No mass Extremity Exam: normal inspection, normal range of motion Back Exam: normal inspection, normal range of motion, No CVA tenderness, No vertebral tenderness Male Genitalia Exam: deferred Rectal Exam: deferred Objective Data Vital Signs: Vital Signs - 24 hr Temp Pulse Resp BP BP Pulse Ox 05/31/24 07:50 97.9 F 74 16 157/72 92 L 05/31/24 06:48 74 16 92 L 05/31/24 04:33 99 05/31/24 04:00 97.6 F 65 22 124/58 94 L 05/30/24 23:33 97.7 F 72 20 154/64 94 L 05/30/24 20:00 97.3 F 69 22 129/62 96 05/30/24 18:31 65 18 95 05/30/24 17:24 68 18 96 05/30/24 16:00 97.8 F 56 L 18 142/70 92 L 05/30/24 15:20 96 05/30/24 14:23 98.0 F 64 22 118/64 96 05/30/24 14:02 96 05/30/24 13:01 65 22 128/75 96 Pain Assessment - Last Documented Pain Intensity 0 Intake and Output: Intake & Output 05/29/24 05/30/24 05/31/24 06/01/24 11:59 11:59 11:59 11:59 Intake Total 720 Output Total 1200 Balance -480 Weight 133 kg 132.6 kg Lab Results: Lab Results-Last 24 Hours 05/30/24 05/30/24 05/30/24 Range/Units 11:27 11:56 14:50 WBC (4.23-9.07) x10^3/uL RBC (4.63-6.08) x10^6/uL Hgb (13.7-17.5) g/dL Hct (40.1-51.0) % MCV (79.0-92.2) fL MCH (25.7-32.2) pg MCHC (32.3-36.5) g/dL RDW (11.6-14.4) % Plt Count (163-337) x10^3/uL MPV (9.4-12.4) fL ESR (0-15) mm/hr Sodium (135-145) mmol/L Potassium (3.5-5.1) mmol/L Chloride (98-107) mmol/L Carbon Dioxide (22-30) mmol/L Anion Gap (5-15) MEQ/L BUN (9-20) mg/dL Creatinine (0.66-1.25) mg/dL Estimated GFR ML/MIN Glucose (74-106) mg/dL POC Glucometer (74 to 106) mg/dL Hemoglobin A1c (4.5-6.0) % Calcium (8.4-10.2) mg/dL Magnesium 2.2 (1.6-2.3) mg/dL Total Bilirubin (0.2-1.3) mg/dL AST (17-59) U/L ALT (0-50) U/L Alkaline Phosphatase (38-126) U/L Troponin I < 0.012 (0.000-0.033) ng/mL Serum Total Protein (6.3-8.2) g/dL Albumin (3.5-5.0) g/dL Vitamin B12 (239-931) pg/mL TSH 3rd Generation (0.470-4.680) mIU/L Slides for Path Review YES 05/30/24 05/30/24 05/30/24 Range/Units 15:00 15:00 15:00 WBC (4.23-9.07) x10^3/uL RBC (4.63-6.08) x10^6/uL Hgb (13.7-17.5) g/dL Hct (40.1-51.0) % MCV (79.0-92.2) fL MCH (25.7-32.2) pg MCHC (32.3-36.5) g/dL RDW (11.6-14.4) % Plt Count (163-337) x10^3/uL MPV (9.4-12.4) fL ESR (0-15) mm/hr Sodium (135-145) mmol/L Potassium (3.5-5.1) mmol/L Chloride (98-107) mmol/L Carbon Dioxide (22-30) mmol/L Anion Gap (5-15) MEQ/L BUN (9-20) mg/dL Creatinine (0.66-1.25) mg/dL Estimated GFR ML/MIN Glucose (74-106) mg/dL POC Glucometer (74 to 106) mg/dL Hemoglobin A1c 7.52 H (4.5-6.0) % Calcium (8.4-10.2) mg/dL Magnesium (1.6-2.3) mg/dL Total Bilirubin (0.2-1.3) mg/dL AST (17-59) U/L ALT (0-50) U/L Alkaline Phosphatase (38-126) U/L Troponin I (0.000-0.033) ng/mL Serum Total Protein (6.3-8.2) g/dL Albumin (3.5-5.0) g/dL Vitamin B12 999 H (239-931) pg/mL TSH 3rd Generation 2.274 (0.470-4.680) mIU/L Slides for Path Review 05/30/24 05/30/24 05/30/24 Range/Units 17:25 18:21 18:21 WBC (4.23-9.07) x10^3/uL RBC (4.63-6.08) x10^6/uL Hgb (13.7-17.5) g/dL Hct (40.1-51.0) % MCV (79.0-92.2) fL MCH (25.7-32.2) pg MCHC (32.3-36.5) g/dL RDW (11.6-14.4) % Plt Count (163-337) x10^3/uL MPV (9.4-12.4) fL ESR 66 H (0-15) mm/hr Sodium (135-145) mmol/L Potassium (3.5-5.1) mmol/L Chloride (98-107) mmol/L Carbon Dioxide (22-30) mmol/L Anion Gap (5-15) MEQ/L BUN (9-20) mg/dL Creatinine (0.66-1.25) mg/dL Estimated GFR ML/MIN Glucose (74-106) mg/dL POC Glucometer 118 H (74 to 106) mg/dL Hemoglobin A1c (4.5-6.0) % Calcium (8.4-10.2) mg/dL Magnesium (1.6-2.3) mg/dL Total Bilirubin (0.2-1.3) mg/dL AST (17-59) U/L ALT (0-50) U/L Alkaline Phosphatase (38-126) U/L Troponin I < 0.012 (0.000-0.033) ng/mL Serum Total Protein (6.3-8.2) g/dL Albumin (3.5-5.0) g/dL Vitamin B12 (239-931) pg/mL TSH 3rd Generation (0.470-4.680) mIU/L Slides for Path Review 05/30/24 05/31/24 05/31/24 Range/Units 21:01 05:17 05:17 WBC 7.2 (4.23-9.07) x10^3/uL RBC 4.09 L (4.63-6.08) x10^6/uL Hgb 8.8 L (13.7-17.5) g/dL Hct 31.3 L (40.1-51.0) % MCV 76.5 L (79.0-92.2) fL MCH 21.5 L (25.7-32.2) pg MCHC 28.1 L (32.3-36.5) g/dL RDW 21.5 H (11.6-14.4) % Plt Count 401 H (163-337) x10^3/uL MPV 10.8 (9.4-12.4) fL ESR (0-15) mm/hr Sodium 143 (135-145) mmol/L Potassium 3.6 (3.5-5.1) mmol/L Chloride 105 (98-107) mmol/L Carbon Dioxide 27 (22-30) mmol/L Anion Gap 15.0 (5-15) MEQ/L BUN 12 (9-20) mg/dL Creatinine 1.27 H (0.66-1.25) mg/dL Estimated GFR 57.5 ML/MIN Glucose 147 H (74-106) mg/dL POC Glucometer 194 H (74 to 106) mg/dL Hemoglobin A1c (4.5-6.0) % Calcium 9.1 (8.4-10.2) mg/dL Magnesium 2.2 (1.6-2.3) mg/dL Total Bilirubin 0.70 (0.2-1.3) mg/dL AST 33 (17-59) U/L ALT 18 (0-50) U/L Alkaline Phosphatase 82 (38-126) U/L Troponin I (0.000-0.033) ng/mL Serum Total Protein 7.2 (6.3-8.2) g/dL Albumin 3.9 (3.5-5.0) g/dL Vitamin B12 (239-931) pg/mL TSH 3rd Generation (0.470-4.680) mIU/L Slides for Path Review YES 05/31/24 05/31/24 Range/Units 07:02 12:01 WBC (4.23-9.07) x10^3/uL RBC (4.63-6.08) x10^6/uL Hgb (13.7-17.5) g/dL Hct (40.1-51.0) % MCV (79.0-92.2) fL MCH (25.7-32.2) pg MCHC (32.3-36.5) g/dL RDW (11.6-14.4) % Plt Count (163-337) x10^3/uL MPV (9.4-12.4) fL ESR (0-15) mm/hr Sodium (135-145) mmol/L Potassium (3.5-5.1) mmol/L Chloride (98-107) mmol/L Carbon Dioxide (22-30) mmol/L Anion Gap (5-15) MEQ/L BUN (9-20) mg/dL Creatinine (0.66-1.25) mg/dL Estimated GFR ML/MIN Glucose (74-106) mg/dL POC Glucometer 148 H 232 H (74 to 106) mg/dL Hemoglobin A1c (4.5-6.0) % Calcium (8.4-10.2) mg/dL Magnesium (1.6-2.3) mg/dL Total Bilirubin (0.2-1.3) mg/dL AST (17-59) U/L ALT (0-50) U/L Alkaline Phosphatase (38-126) U/L Troponin I (0.000-0.033) ng/mL Serum Total Protein (6.3-8.2) g/dL Albumin (3.5-5.0) g/dL Vitamin B12 (239-931) pg/mL TSH 3rd Generation (0.470-4.680) mIU/L Slides for Path Review Radiology Exams: Radiology Procedures Category Date Time Status THA/LIMB PRESSURES BILATERAL [US] Routine Exams 05/31/24 11:10 Completed CAROTID BILATERAL [US] Routine Exams 05/31/24 08:18 Completed CERVICAL SPINE WITH CONTRAST [CT] Routine Exams 05/30/24 15:10 Completed HEAD W/WO CONTRAST [CT] Routine Exams 05/30/24 15:10 Completed LUMBAR SPINE WITH [CT] Routine Exams 05/30/24 15:10 Completed Multi-Disciplinary Progress Notes: Multi-Disciplinary Progress Notes 05/31/24 12:58 Case Management Note by Montse Small COMPLETE- NO LEVEL II REQUIRED. COPIES PLACE ON CHART Initialized on 05/31/24 12:58 - END OF NOTE Assessment/Plan (1) Generalized weakness Current Visit: Yes Status: Acute Code(s): R53.1 - WEAKNESS (2) Peripheral neuropathy Current Visit: Yes Status: Acute Code(s): G62.9 - POLYNEUROPATHY, UNSPECIFIED (3) Anemia Current Visit: Yes Status: Chronic Code(s): D64.9 - ANEMIA, UNSPECIFIED (4) Type II diabetes mellitus Current Visit: Yes Status: Acute (5) Hyperlipidemia Current Visit: Yes Status: Acute Code(s): E78.5 - HYPERLIPIDEMIA, UN SPECIFIED (6) Obesity (BMI 30-39.9) Current Visit: No Status: Chronic Code(s): E66.9 - OBESITY, UNSPECIFIED (7) Sleep apnea Current Visit: Yes Status: Chronic Code(s): G47.30 - SLEEP APNEA, UNSPECIFIED (8) Restless legs Current Visit: Yes Status: Acute Assessment & Plan: (1) Generalized weakness Current Visit: Yes Status: Acute Assessment & Plan: - CT head, cervical, and lumbar spine with contrast- reviewed - PT eval and treat - Consider rehab placement 05/31 - neurology consult - BL drop foot Code(s): R53.1 - WEAKNESS (2) Peripheral neuropathy Current Visit: Yes Status: Acute Assessment & Plan: - Chronic - A1C - does not take any home meds for this - B12, TSH, CRP, ESR, A1C - Consider gabapentin 05/31 - start gabapentin at HS - neurology consult - THA' s BL normal Code(s): G62.9 - POLYNEUROPATHY, UNSPECIFIED (3) Anemia Current Visit: Yes Status: Chronic Assessment & Plan: - Hgb 9.1- stable - reviewed most recent irion panel labs - needs OP colonoscopy 05/31 - Hgb 8.8 Code(s): D64.9 - ANEMIA, UNSPECIFIED (4) Type II diabetes mellitus Current Visit: Yes Status: Acute Assessment & Plan: - Lantus 30 units at HS - S/S humalog - A1C 7.52- controlled (5) Hyperlipidemia Current Visit: Yes Status: Acute Assessment & Plan: - Continue statin Code(s): E78.5 - HYPERLIPIDEMIA, UNSPECIFIED (6) Obesity (BMI 30-39.9) Current Visit: No Status: Chronic Assessment & Plan: - Advised ADA diet and exercise control Code(s): E66.9 - OBESITY, UNSPECIFIED (7) Sleep apnea Current Visit: Yes Status: Chronic Assessment & Plan: - RT CPAP set up Code(s): G47.30 - SLEEP APNEA, UNSPECIFIED (8) Restless legs Current Visit: Yes Status: Acute Assessment & Plan: - Requip at HS (9) Intermittent confusion Current Visit: Yes Status: Acute Assessment & Plan: - per daughter is new. - carotid duplex reviewed VTE:Plavix PPI: Protonix Next of KIN: daughter D/C plan: 1-2 days Code status: SCO Code(s): R41.0 - DISORIENTATION, UNSPECIFIED
--- NOTE | 2024-05-31 17:14 | PCM.NOTE ---
Date and Time: 05/31/24 1712 [employer] [facility] Consult Physician Signature This document was electronically signed by: Oliver Alvarez DO Consult Cover Page FROM: [employer], Call Back Number: [phone] SUBJECT: Consult Recommendations Date and Time of Report: 05/31/2024 05:05 PM ET Items Contained in this Document: Neurology Consult Note Consult Information Member Facility: [facility] Facility Consult ID: [id number] Facility Time Zone: ET Date and Time of Request: 05-31-2024 12:11 PM ET Requesting Clinician: Dr. Donnelly Patient Name: Sushil Alexander Date of : 1945 Gender: Male Patient identity was confirmed at the beginning of the consult with the patient/family/staff using two personal identifiers: Patient name and Reason for Consult Reason for Consult: Inpatient General Chief Complaint: per intake.... "Foot drop, weakness/numbness BLLE" Patient Location and Admission Status: Inpatient Family Members and Medical Staff Present During Exam: patient's nurse, History of Present Illness: I entered the patients room by way of secure two-way audiovisual conferencing. Patient name and date of confirmed with patient and nursing staff at bedside, patient agreeable to proceed with encounter. Patient is in the hospital for further evaluation of generalized weakness/weakness in the lower extremities. Patient starts by telling me his symptoms are associated with "neuropathy" which started a month or so ago. He does state that about a month ago he had a cough, then started developing some numbness in his feet. He ended up going to his PCP told his cough is associated with anemia. At some point it sounds like he was given a transfusion. Patient tells me symptoms started in his feet, then about a week later up to his knees and then a little later up to his thighs and he does report sensory impairment and weakness from the "beltline" down. Does not clearly report new change in bowel or bladder function. Does have some low back pain and states when sitting for a while he will get sharp pains in the bottom of his feet. Otherwise no chato r provoking or relieving factors. With ambulation he may be able to take a couple steps and then feels like his legs are going to buckle. At the time of this encounter patient had difficulty standing even with assistance. Patient denies associated speech/language/cognitive impairment, new visual changes, no new swallowing or breathing issues, denies new symptoms in his upper extremities or neck. No clear report of sensory disturbance around the chest, again reports symptoms from the lower extremities up to the "beltline". Patient does have multiple comorbidities, so far no major abnormalities with labs, CT of the head, neck or lumbar spine. These studies do chronic appearing changes without obvious acute appearing pathology that could explain patients presenting, progressive symptoms. Number of Documented HPI Elements: 4+ Medical History Medical History: Coronary Artery Disease, Congestive Heart Failure, Diabetes Mellitus, Hyperlipidemia, Hypertension, Neuropathy, Obesity Other Medical History: -- bilateral pulmonary emboli -- syncope and collapse -- pancreatitis, gastroenteritis, paralytic ileus -- symptomatic anemia -- generalized weakness --sleep apnea -- intermittent confusion -- elevated serum creatinine -- micro Citic anemia Other Past Procedures: --watchmen procedure December 2023 --pacemaker --cholecystectomy, orthopedic surgery dental surgeries, Pertinent Family History: Unknown Allergies Allergies: Codeine, Sulfa Other Allergies: cephalexin Medications Other Anti-Coagulants: reports use of Eliquis which was discontinued after watchmen procedure december 2023 Anti-Platelets: ASA 81 mg, Plavix (Clopidogrel) Other Medications: -- home medications including rosuvastatin 10 mg daily, metoprolol, losartan, amlodipine, insulin, farxiga, tangelo sin, director team, omeprazole, supplements, vitamins, --- Inpatient medications including blood pressure related medications, insulin, gabapentin, paroxetine, pantoprazole, Zocor 20 mg, ropinirole 0.5 mg nightly, aspirin and Plavix. Social History Alcohol Use: None Drug Use: None Tobacco Use: Past Vital Signs Temperature F: 97.9 Temperature C: 36.6 Blood Pressure (mmHg): 157/72 Heart Rate (bpm): 74 Date and Time: 05/31/2024 04:40:33 PM ET POC Glucose(mg/dL): 147 Review Of Systems Neurological: See HPI Cardiovascular: Pertinent Positives/Negatives Cardiovascular Comments: no active chest pain Respiratory: Pertinent Positives/Negatives Respiratory comments: no active shortness of breath Musculoskeletal: See HPI Exam Exam: Awake, alert and oriented, pleasant without acute distress. Speech is fluent, no aphasia. Attends to both sides of the environment equally, peripheral visual cannon appear grossly preserved, EOMI, facial expressions symmetric (mild dec left lower at rest?) and speech is clear. No drift/clumsiness of the upper extremities. Patient had significant difficulties raising from a chair even with assistance. Detailed sensory exam, deep tendon reflexes limited by way of tele-visit. Abnormal spontaneous movements not observed. Clinician assisting with exam: patients nurses Labs and Imaging Labs available?: Yes INR: 0.99 Blood Glucose (mg/dL): 147 WBC (mcL): 7 HGB (g/dL): 8 HCT (%): 31 PLT (mcL): 401 Cr (mg/dL): 1.27 Other Labs: --hemoglobin A1c 7.5 --B12 999 --TSH normal CT Brain Findings: No acute changes, Atrophy, Chronic microvascular disease Other Imaging Studies/Findings: --CT cervical spine Impression: 1. Osteopenia, multilevel degenerative changes greatest at C6-T1, and bilateral carotid calcifications. 2. Remaining CT cervical spine with contrast exam is negative. --carotid ultrasound Impression: Grossly stable minimal arteriosclerotic plaquing bilaterally. Velocity measurements again negative for hemodynamically significant flow-limiting stenosis. --CT lumbar spine Impression: 1. Stable osteopenia, multilevel degenerative spondylosis, dextroscoliosis, L1 Schmorl node, arteriosclerotic disease, right renal micro-calculus, and left renal cyst. 2. Remaining CT lumbar spine with contrast exam is negative. Assessment and Recommendations Assessment: Acute onset?... subacute progression of lower extremity weakness/sensory changes... starting in bilateral feet after, around the time of the "cough" ~ a month ago (pt states he told a/w anemia).... symptoms seem to slowly progress up the lower extremities, now up to the "beltline". No clear newly associated symptoms above the belt line...specifically no new troubles breathing or swallowing. Patient does report pain in the low back as well as sharp pains going to bilateral feet when sitting for extended period of time. No new b/b issues reported. Now only able to barely walk a couple steps before legs giving way. Lumbar spine CT not showing significant pathology that would clearly explain all of the symptoms. DDx Includes association with lumbar/lower thoracic spine disease?, Guillain- Hrud type syndrome? Recommendations: As discussed with Denise Reyna NP, for now from neurology perspective, --given progression of patient symptoms as outlined and ddx considered patient should have lumbar puncture to evaluate for inflammatory process that may or may not support a Guillain-Hurd type syndrome. -- should have MRI lumbar/t spine however it was just learned that patient reports having a pacemaker, unclear if compatible with MRI, will need to be further investigated -- LP capability not available at this facility, patient to be transferred to higher level of care for further evaluation of his progressive symptoms, ambulatory dysfunction. Thank you for the opportunity to be involved in the care and management of this patient. Neurological recommendations provided. Please do not hesitate to call back with any new developments/information, data updates or questions. At your request video follow up evaluation can be completed / arranged, please have video cart at bedside if requested. Oliver Alvarez Jr, DO, MS Adult Neurologist [facility] Disposition: Transfer patient to higher level of care Diagnosis Impression: Other Diagnosis Other: progressive lower extremity weakness, paresthesias, ambulatory dysfunction Case discussed with: Denise Reyna NP ICD-10 Code ICD-10 Code (Primary): G83.11 : Monoplegia of lower limb affecting right dominant side ICD-10 Code: G83.14 : Monoplegia of lower limb affecting left nondominant side ICD-10 Code: R20.2 : Paresthesia of skin ICD-10 Code: R26.2 : Difficulty in walking, not elsewhere classified ICD-10 Code: R29.90 : Unspecified symptoms and signs involving the nervous system Attestation Interaction Mode: Video & Phone Time of Phone Call : 05-31-2024 04:23 PM ET Time of Video Call : 05-31-2024 04:02 PM ET Interaction Attestation: Clinical telemedicine services delivered using HIPAA- compliant interactive video-audio telecommunications while the patient and the rendering provider were not in the same physical location. Written report was provided to the requesting provider. Evaluation Duration (mins): 89 [place]ado Timer Summary Date and Time of Request: 05-31-2024 12:11 PM ET Physician Signature This document was electronically signed by: Oliver Alvarez DO Objective Exam - Vital Signs Vital Signs: Vital Signs - 24 hr 05/30/24 05/30/24 05/30/24 17:24 18:31 20:00 Temperature 97.3 F Pulse Rate 68 65 69 Respiratory 18 18 22 Rate Blood Pressure 129/62 [Right Arm] O2 Sat by Pulse 96 95 96 Oximetry 05/30/24 05/31/24 05/31/24 23:33 04:00 04:33 Temperature 97.7 F 97.6 F Pulse Rate 72 65 Respiratory 20 22 Rate Blood Pressure 154/64 124/58 [Right Arm] O2 Sat by Pulse 94 L 94 L 99 Oximetry 05/31/24 05/31/24 05/31/24 06:48 07:50 16:00 Temperature 97.9 F 97.4 F Pulse Rate 74 74 69 Respiratory 16 16 18 Rate Blood Pressure 157/72 110/58 [Right Arm] O2 Sat by Pulse 92 L 92 L 92 L Oximetry Objective Data - Labs Lab/Micro Results: Lab Results-Last 24 Hours 05/30/24 05/30/24 05/30/24 Range/Units 17:25 18:21 18:21 WBC (4.23-9.07) x10^3/uL RBC (4.63-6.08) x10^6/uL Hgb (13.7-17.5) g/dL Hct (40.1-51.0) % MCV (79.0-92.2) fL MCH (25.7-32.2) pg MCHC (32.3-36.5) g/dL RDW (11.6-14.4) % Plt Count (163-337) x10^3/uL MPV (9.4-12.4) fL ESR 66 H (0-15) mm/hr Sodium (135-145) mmol/L Potassium (3.5-5.1) mmol/L Chloride (98-107) mmol/L Carbon Dioxide (22-30) mmol/L Anion Gap (5-15) MEQ/L BUN (9-20) mg/dL Creatinine (0.66-1.25) mg/dL Estimated GFR ML/MIN Glucose (74-106) mg/dL POC Glucometer 118 H (74 to 106) mg/dL Calcium (8.4-10.2) mg/dL Magnesium (1.6-2.3) mg/dL Total Bilirubin (0.2-1.3) mg/dL AST (17-59) U/L ALT (0-50) U/L Alkaline Phosphatase (38-126) U/L Troponin I < 0.012 (0.000-0.033) ng/mL Serum Total Protein (6.3-8.2) g/dL Albumin (3.5-5.0) g/dL Slides for Path Review 05/30/24 05/31/24 05/31/24 Range/Units 21:01 05:17 05:17 WBC 7.2 (4.23-9.07) x10^3/uL RBC 4.09 L (4.63-6.08) x10^6/uL Hgb 8.8 L (13.7-17.5) g/dL Hct 31.3 L (40.1-51.0) % MCV 76.5 L (79.0-92.2) fL MCH 21.5 L (25.7-32.2) pg MCHC 28.1 L (32.3-36.5) g/dL RDW 21.5 H (11.6-14.4) % Plt Count 401 H (163-337) x10^3/uL MPV 10.8 (9.4-12.4) fL ESR (0-15) mm/hr Sodium 143 (135-145) mmol/L Potassium 3.6 (3.5-5.1) mmol/L Chloride 105 (98-107) mmol/L Carbon Dioxide 27 (22-30) mmol/L Anion Gap 15.0 (5-15) MEQ/L BUN 12 (9-20) mg/dL Creatinine 1.27 H (0.66-1.25) mg/dL Estimated GFR 57.5 ML/MIN Glucose 147 H (74-106) mg/dL POC Glucometer 194 H (74 to 106) mg/dL Calcium 9.1 (8.4-10.2) mg/dL Magnesium 2.2 (1.6-2.3) mg/dL Total Bilirubin 0.70 (0.2-1.3) mg/dL AST 33 (17-59) U/L ALT 18 (0-50) U/L Alkaline Phosphatase 82 (38-126) U/L Troponin I (0.000-0.033) ng/mL Serum Total Protein 7.2 (6.3-8.2) g/dL Albumin 3.9 (3.5-5.0) g/dL Slides for Path Review YES 05/31/24 05/31/24 05/31/24 Range/Units 07:02 12:01 16:14 WBC (4.23-9.07) x10^3/uL RBC (4.63-6.08) x10^6/uL Hgb (13.7-17.5) g/dL Hct (40.1-51.0) % MCV (79.0-92.2) fL MCH (25.7-32.2) pg MCHC (32.3-36.5) g/dL RDW (11.6-14.4) % Plt Count (163-337) x10^3/uL MPV (9.4-12.4) fL ESR (0-15) mm/hr Sodium (135-145) mmol/L Potassium (3.5-5.1) mmol/L Chloride (98-107) mmol/L Carbon Dioxide (22-30) mmol/L Anion Gap (5-15) MEQ/L BUN (9-20) mg/dL Creatinine (0.66-1.25) mg/dL Estimated GFR ML/MIN Glucose (74-106) mg/dL POC Glucometer 148 H 232 H 127 H (74 to 106) mg/dL Calcium (8.4-10.2) mg/dL Magnesium (1.6-2.3) mg/dL Total Bilirubin (0.2-1.3) mg/dL AST (17-59) U/L ALT (0-50) U/L Alkaline Phosphatase (38-126) U/L Troponin I (0.000-0.033) ng/mL Serum Total Protein (6.3-8.2) g/dL Albumin (3.5-5.0) g/dL Slides for Path Review Accuchecks Date 05/31/24 Date 05/31/24 Date 05/31/24 - Other Procedures & Test Other Procedures & Test: Respiratory Therapy 05/30/24 17:20 Oxygen Nasal Cannula 2 lpm 05/31/24 07:00 Respiratory Therapy Assessment DAILY - Radiology Orders Radiology Orders: Radiology Procedures Category Date Time Status THA/LIMB PRESSURES BILATERAL [US] Routine Exams 05/31/24 11:10 Completed CAROTID BILATERAL [US] Routine Exams 05/31/24 08:18 Completed CERVICAL SPINE WITH CONTRAST [CT] Routine Exams 05/30/24 15:10 Completed HEAD W/WO CONTRAST [CT] Routine Exams 05/30/24 15:10 Completed LUMBAR SPINE WITH [CT] Routine Exams 05/30/24 15:10 Completed Assessment & Plan - Encounter Encounter: "The entirety of this encounter was performed via Telemedicine using audio and visual "
[2024-05-31] MEDS: HUMALOG SQ PRN (22:12)
[2024-05-31] MEDS: Neurontin PO SCH (22:17)
[2024-05-31 23:34] VITALS: BP 141/62; PULSE 76; RESP 20; TEMP 98.5; O2SAT 92
== END 2024-06-01 00:55 | disposition short-term general hospital (02) ==
LOC: ED 10:52 → MED SURG 13:33
PROVIDERS: ADMIT Internal Medicine; ATTEND Internal Medicine
DX: R53.1 Weakness (principal); G62.9 Polyneuropathy, unspecified; D64.9 Anemia, unspecified; E11.9 Type 2 diabetes mellitus without complications; I65.22 Occlusion and stenosis of left carotid artery; M79.661 Pain in right lower leg; M79.662 Pain in left lower leg; E78.5 Hyperlipidemia, unspecified; E66.9 Obesity, unspecified; G47.30 Sleep apnea, unspecified; G25.81 Restless legs syndrome; R41.0 Disorientation, unspecified; Z79.899 Other long term (current) drug therapy; Z79.01 Long term (current) use of anticoagulants
CPT/HCPCS: 36000; 36415; 70470; 72126; 72131; 80053; 81001; 82607; 82947; 83036; 83735; 84443; 84484; 85025; 85027; 85610; 85652; 85730; 86140; 93005; 93041; 93268; 93880; 93922; 94640; 94760; 96360; 96361; 97161; 97165; 97530; 99285; G0378; J1817; A9270-GY